=== PATIENT | male | born 1950 | race Hispanic/Latino ===

== ENCOUNTER 2018-06-28 21:06 | Emergency (ER) | payer MEDICARE, OTHER ==
--- OUTSIDE RECORDS SUMMARY | 2018-06-28 21:08 | XMS REPORT ---
Author Author Dilia Nair [facility] eClinicalWorks Address Unknown Phone Unavailable Care Team Providers Care Electrical Intern Name Role Phone Dilia Nair CP Unavailable Allergies, Adverse Reactions, Alerts Substance Reaction Event Type N.K.D.A. Info Not Available Non Drug Allergy Encounters Encounter Location Date headaches [facility] Apr 12, 2015 CT Scan` [facility] Apr 16, 2015 LVM [facility] May 02, 2015 Problems Problem Type Condition ICD-9 Code Onset Dates Condition Status Assessment Hypertension I10 Active Assessment Tobacco non-user Z78.9 Active Assessment Obesity E66.9 Active Problem Obstructive sleep apnea G47.33 Active Problem Subdural hematoma I62.00 Active Problem Headache R51 Active Assessment Headache R51 Active Assessment Subdural hematoma I62.00 Active Problem Obstructive sleep apnea 327.23 Active Assessment Obstructive sleep apnea G47.33 Active Medications Medication Code System Code Instructions Start Date End Date Status Dosage Clopidogrel Bisulfate [facility] [address]-44 75 MG Orally daily Active 1 capsule Sertraline HCl [facility] [address]-60 orally Once a day Mar 26, 2011 Active 1 tablet Lisinopril [facility] [address]-36 10 mg by mouth daily Active 1 tablet Ecotrin [facility] [address]-51 80 mg Orally Once a day Active 1 tablet Nitrostat [facility] [address]-07 0.4 MG Sublingual as needed (prn) Active Unknown Social History Social History Element Qualifiers Date Reported Education history . GED May 02, 2015 Alcohol Screening: . Points: 0, Interpretation: Negative May 02, 2015 Tobacco Use: . Are you a:: former smoker , How long has it been since you last smoked?: > 10 years, Additional Findings: Tobacco Non-User: Ex-light cigarette smoker (1-9/day) May 02, 2015 Marital Status: . May 02, 2015 Do you drink alcohol? . 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
--- OUTSIDE RECORDS SUMMARY | 2018-06-28 21:08 | XMS REPORT ---
Author Author Dilia Nair [facility] eClinicalWorks Address Unknown Phone Unavailable Care Team Providers Care Neuro Ophthalmologist Name Role Phone Dilia Nair CP Unavailable Encounters Encounter Location Date headaches [facility] Apr 12, 2015 CT Scan` [facility] Apr 16, 2015 Problems Problem Type Condition ICD-9 Code Onset Dates Condition Status Problem Obstructive sleep apnea G47.33 Active Problem Subdural hematoma I62.00 Active Problem Headache R51 Active Problem Obstructive sleep apnea 327.23 Active Social History Social History Element Qualifiers Date Reported Education history . GED Apr 12, 2015 Alcohol Screening: . Points: 0, Interpretation: Negative Apr 12, 2015 Tobacco Use: . Are you a:: former smoker , How long has it been since you last smoked?: > 10 years, Additional Findings: Tobacco Non-User: Ex-light cigarette smoker (1-9/day) Apr 12, 2015 Marital Status: . Apr 12, 2015 Do you drink alcohol? . 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
--- OUTSIDE RECORDS SUMMARY | 2018-06-28 21:08 | XMS REPORT ---
Author Author Dilia Nair Organization eClinicalWorks Address Unknown Phone Unavailable Care Team Providers Care Product Handler Name Role Phone Dilia Nair CP Unavailable Allergies, Adverse Reactions, Alerts Substance Reaction Event Type N.K.D.A. Info Not Available Non Drug Allergy Encounters Encounter Location Date headaches [facility] Apr 12, 2015 Problems Problem Type Condition ICD-9 Code Onset Dates Condition Status Assessment Obesity E66.9 Active Assessment Hypertension I10 Active Assessment Tobacco non-user Z78.9 Active Problem Obstructive sleep apnea G47.33 Active Problem Subdural hematoma I62.00 Active Problem Headache R51 Active Assessment Obstructive sleep apnea G47.33 Active Assessment Subdural hematoma I62.00 Active Problem Obstructive sleep apnea 327.23 Active Assessment Headache R51 Active Medications Medication Code System Code Instructions Start Date End Date Status Dosage Lisinopril [facility] [address]-34 10 mg by mouth daily Active 1 tablet Clopidogrel Bisulfate [facility] [address]-65 75 MG Orally daily Active 1 capsule Sertraline HCl [facility] [address]-55 orally Once a day Mar 26, 2011 Active 1 tablet Nitrostat [facility] [address]-05 0.4 MG Sublingual as needed (prn) Active Unknown [facility] [address]-90 80 mg Orally Once a day Active 1 tablet Social History Social History Element Qualifiers Date [...] Socially Apr 12, 2015 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
--- OUTSIDE RECORDS SUMMARY | 2018-06-28 21:10 | XMS REPORT ---
Author [facility] Address Unknown Phone Unavailable Care Team Providers Care Financial Retirement Plan Specialist Name Role Phone WILDA MOSHER Unavailable Unavailable NARESH STEINBERG Unavailable Unavailable Erlin MACIAS Unavailable Unavailable Payers Payer Name Policy Type Policy Number Effective Date Expiration Date Problems This patient has no known problems. Allergies, Adverse Reactions, Alerts Allergy Name Allergy Type Status Severity Reaction(s) Onset Date Inactive Date Treating Clinician Comments No Known Allergies DA Active U 2016-02-08 00:00:00 Medications This patient has no known medications. Results Test Description Test Time Test Comments Text Results Atomic Results Result Comments POCT-GLUCOSE METER 2018-02-22 11:53:00 POC-GLUCOSE METER (BEAKER) (test xcxv=8384) 167 mg/dL 70-110 TESTED AT [address] [address] POCT-GLUCOSE [id number] 05:51:00* Test Item Value Reference Range Comments POC-GLUCOSE METER (BEAKER) (test nfsc=5035) 114 mg/dL 70-110 TESTED AT [address] [address] BASIC METABOLIC [id number] 05:25:00* Test Item Value Reference Range Comments SODIUM (BEAKER) (test skng=863) 136 meq/L 136-145 POTASSIUM (BEAKER) (test gfpn=286) 3.6 meq/L 3.5-5.1 CHLORIDE (BEAKER) (test dbza=336) 100 meq/L 98-107 CO2 (BEAKER) (test elsr=301) 27 meq/L 22-29 BLOOD UREA NITROGEN (BEAKER) (test qaqt=539) 20 mg/dL 7-21 CREATININE (BEAKER) (test mebu=636) 1.04 mg/dL 0.57-1.25 GLUCOSE RANDOM (BEAKER) (test cyke=881) 94 mg/dL 70-105 CALCIUM (BEAKER) (test aitx=579) 9.5 mg/dL 8.4-10.2 EGFR (BEAKER) (test kcvy=0704) 71 mL/min/1.73 sq m ESTIMATED GFR IS NOT ACCURATE CREATININE CLEARANCE IN PREDICTING GLOMERULAR FILTRATION RATE. ESTIMATED GFR IS NOT APPLICABLE FOR DIALYSIS PATIENTS. CBC W/PLT COUNT & AUTO [id number] 05:04:00* Test Item Value Reference Range Comments WHITE BLOOD CELL COUNT (BEAKER) (test exvd=891) 5.4 K/ L 3.5-10.5 RED BLOOD CELL COUNT (BEAKER) (test ysig=135) 3.00 M/ L 4.63-6.08 HEMOGLOBIN (BEAKER) (test jhvu=020) 8.9 GM/DL 13.7-17.5 HEMATOCRIT (BEAKER) (test omfh=534) 27.9 % 40.1-51.0 MEAN CORPUSCULAR VOLUME (BEAKER) (test krvb=969) 93.0 fL 79.0-92.2 MEAN CORPUSCULAR HEMOGLOBIN (BEAKER) (test gmpl=674) 29.7 pg 25.7-32.2 MEAN CORPUSCULAR HEMOGLOBIN CONC (BEAKER) (test cqun=869) 31.9 GM/DL 32.3-36.5 RED CELL DISTRIBUTION WIDTH (BEAKER) (test zxoz=077) 15.6 % 11.6-14.4 PLATELET COUNT (BEAKER) (test rabq=185) 264 K/CU MM 150-450 MEAN PLATELET VOLUME (BEAKER) (test tqmh=464) 9.4 fL 9.4-12.4 NUCLEATED RED BLOOD CELLS (BEAKER) (test ibqo=956) 0 /100 WBC 0-0 NEUTROPHILS RELATIVE PERCENT (BEAKER) (test ccnq=013) 72 % LYMPHOCYTES RELATIVE PERCENT (BEAKER) (test ttlp=298) 17 % MONOCYTES RELATIVE PERCENT (BEAKER) (test luuh=386) 7 % EOSINOPHILS RELATIVE PERCENT (BEAKER) (test yeig=043) 3 % BASOPHILS RELATIVE PERCENT (BEAKER) (test leht=105) 1 % NEUTROPHILS ABSOLUTE COUNT (BEAKER) (test gkjr=527) 3.90 K/ L 1.78-5.38 LYMPHOCYTES ABSOLUTE COUNT (BEAKER) (test fmyt=148) 0.90 K/ L 1.32-3.57 MONOCYTES ABSOLUTE COUNT (BEAKER) (test mruz=175) 0.40 K/ L 0.30-0.82 EOSINOPHILS ABSOLUTE COUNT (BEAKER) (test jrtc=509) 0.18 K/ L 0.04-0.54 BASOPHILS ABSOLUTE COUNT (BEAKER) (test jsiy=203) 0.04 K/ L 0.01-0.08 IMMATURE GRANULOCYTES-RELATIVE PERCENT (BEAKER) (test etjs=1241) 0 % 0-1 POCT-GLUCOSE [id number] 21:00:00* Test Item Value Reference Range Comments POC-GLUCOSE METER (BEAKER) (test xkms=1241) 147 mg/dL 70-110 TESTED AT [address] [address] POCT-GLUCOSE [id number] 16:43:00* Test Item Value Reference Range Comments POC-GLUCOSE METER (BEAKER) (test bzis=4168) 134 mg/dL 70-110 TESTED AT [address] [address] POCT-GLUCOSE [id number] 11:17:00* Test Item Value Reference Range Comments POC-GLUCOSE METER (BEAKER) (test wjsn=0799) 106 mg/dL 70-110 TESTED AT [address] [address] POCT-GLUCOSE [id number] 06:52:00* Test Item Value Reference Range Comments POC-GLUCOSE METER (BEAKER) (test tixn=3198) 113 mg/dL 70-110 TESTED AT [address] [address] POCT-GLUCOSE [id number] 20:47:00* Test Item Value Reference Range Comments POC-GLUCOSE METER (BEAKER) (test avgt=8242) 149 mg/dL 70-110 TESTED AT [address] [address] POCT-GLUCOSE [id number] 16:22:00* Test Item Value Reference Range Comments POC-GLUCOSE METER (BEAKER) (test gifn=3670) 161 mg/dL 70-110 TESTED AT [address] [address] POCT-GLUCOSE [id number] 11:10:00* Test Item Value Reference Range Comments POC-GLUCOSE METER (BEAKER) (test ywpy=3725) 144 mg/dL 70-110 TESTED AT [address] [address] POCT-GLUCOSE [id number] 06:54:00* Test Item Value Reference Range Comments POC-GLUCOSE METER (BEAKER) (test uywx=2531) 125 mg/dL 70-110 TESTED AT [address] [address] POCT-GLUCOSE [id number] 21:06:00* Test Item Value Reference Range Comments POC-GLUCOSE METER (BEAKER) (test quxe=9408) 158 mg/dL 70-110 TESTED AT [address] [address] POCT-GLUCOSE [id number] 17:21:00* Test Item Value Reference Range Comments POC-GLUCOSE METER (BEAKER) (test dndq=9074) 167 mg/dL 70-110 TESTED AT [address] [address] POCT-GLUCOSE [id number] 12:32:00* Test Item Value Reference Range Comments POC-GLUCOSE METER (BEAKER) (test fngn=6591) 106 mg/dL 70-110 TESTED AT [address] [address] COMPREHENSIVE METABOLIC [id number] 06:55:00* Test Item Value Reference Range Comments TOTAL PROTEIN (BEAKER) (test lfve=098) 6.5 gm/dL 6.0-8.3 ALBUMIN (BEAKER) (test zgho=5120) 3.1 g/dL 3.5-5.0 ALKALINE PHOSPHATASE (BEAKER) (test zwrk=134) 130 U/L 40-150 BILIRUBIN TOTAL (BEAKER) (test utmc=330) 0.7 mg/dL 0.2-1.2 SODIUM (BEAKER) (test ovcd=385) 133 meq/L 136-145 POTASSIUM (BEAKER) (test bqyz=098) 3.6 meq/L 3.5-5.1 CHLORIDE (BEAKER) (test hulw=563) 100 meq/L 98-107 CO2 (BEAKER) (test pvfv=461) 24 meq/L 22-29 BLOOD UREA NITROGEN (BEAKER) (test siai=254) 20 mg/dL 7-21 CREATININE (BEAKER) (test zpgt=208) 1.05 mg/dL 0.57-1.25 GLUCOSE RANDOM (BEAKER) (test kisb=472) 109 mg/dL 70-105 CALCIUM (BEAKER) (test jtcd=767) 9.1 mg/dL 8.4-10.2 AST (SGOT) (BEAKER) (test nkxd=972) 24 U/L 5-34 ALT (SGPT) (BEAKER) (test wfzu=094) 35 U/L 6-55 EGFR (BEAKER) (test kreq=8842) 70 mL/min/1.73 sq m ESTIMATED GFR IS NOT ACCURATE CREATININE CLEARANCE IN PREDICTING GLOMERULAR FILTRATION RATE. ESTIMATED GFR IS NOT APPLICABLE FOR DIALYSIS PATIENTS. CBC W/PLT COUNT & AUTO [id number] 06:10:00* Test Item Value Reference Range Comments WHITE BLOOD CELL COUNT (BEAKER) (test srnl=083) 6.8 K/ L 3.5-10.5 RED BLOOD CELL COUNT (BEAKER) (test uuop=793) 3.04 M/ L 4.63-6.08 HEMOGLOBIN (BEAKER) (test emxc=784) 9.3 GM/DL 13.7-17.5 HEMATOCRIT (BEAKER) (test lito=453) 28.5 % 40.1-51.0 MEAN CORPUSCULAR VOLUME (BEAKER) (test zoou=034) 93.8 fL 79.0-92.2 MEAN CORPUSCULAR HEMOGLOBIN (BEAKER) (test ggaw=105) 30.6 pg 25.7-32.2 MEAN CORPUSCULAR HEMOGLOBIN CONC (BEAKER) (test plsm=085) 32.6 GM/DL 32.3-36.5 RED CELL DISTRIBUTION WIDTH (BEAKER) (test nglj=483) 15.5 % 11.6-14.4 PLATELET COUNT (BEAKER) (test jiey=743) 264 K/CU MM 150-450 MEAN PLATELET VOLUME (BEAKER) (test jorf=572) 10.6 fL 9.4-12.4 NUCLEATED RED BLOOD CELLS (BEAKER) (test wneq=636) 0 /100 WBC 0-0 NEUTROPHILS RELATIVE PERCENT (BEAKER) (test wbci=734) 74 % LYMPHOCYTES RELATIVE PERCENT (BEAKER) (test gtsn=320) 14 % MONOCYTES RELATIVE PERCENT (BEAKER) (test zfhv=540) 10 % EOSINOPHILS RELATIVE PERCENT (BEAKER) (test vhay=870) 2 % BASOPHILS RELATIVE PERCENT (BEAKER) (test cnik=843) 1 % NEUTROPHILS ABSOLUTE COUNT (BEAKER) (test kjfs=297) 5.02 K/ L 1.78-5.38 LYMPHOCYTES ABSOLUTE COUNT (BEAKER) (test qmxm=011) 0.92 K/ L 1.32-3.57 MONOCYTES ABSOLUTE COUNT (BEAKER) (test uuxu=135) 0.67 K/ L 0.30-0.82 EOSINOPHILS ABSOLUTE COUNT (BEAKER) (test sggq=452) 0.10 K/ L 0.04-0.54 BASOPHILS ABSOLUTE COUNT (BEAKER) (test htts=510) 0.04 K/ L 0.01-0.08 IMMATURE GRANULOCYTES-RELATIVE PERCENT (BEAKER) (test nhal=6566) 0 % 0-1 POCT-GLUCOSE [id number] 21:55:00* Test Item Value Reference Range Comments POC-GLUCOSE METER (BEAKER) (test zjxg=1319) 165 mg/dL 70-110 TESTED AT [address] [address] POCT-GLUCOSE [id number] 17:10:00* Test Item Value Reference Range Comments POC-GLUCOSE METER (BEAKER) (test zyfq=3100) 198 mg/dL 70-110 TESTED AT [address] [address] POCT-GLUCOSE [id number] 12:38:00* Test Item Value Reference Range Comments POC-GLUCOSE METER (BEAKER) (test cxjx=2915) 134 mg/dL 70-110 TESTED AT [address] [address] POCT-GLUCOSE [id number] 08:18:00* Test Item Value Reference Range Comments POC-GLUCOSE METER (BEAKER) (test blna=2639) 121 mg/dL 70-110 TESTED AT [address] [address] RAD, CHEST, 1 VIEW, NON [id number] 08:16:00Reason for exam:->pulmonary congestionShould this be performed at the bedside?->YesFINAL REPORT INDICATION: pulmonary congestion COMPARISON:February 17. TECHNIQUE: Chest radiograph, single view, portable technique. FINDINGS / IMPRESSION: Suggestion of coronary artery bypass surgery with median sternotomy wires. Heart shadow is enlarged. There is questionable pulmonary venous congestion but no overt pulmonary edema. No pneumothorax or significant pleural effusion is demonstrated. Signed: Shiva Lutz MDReport Verified Date/Time: 02/18/2018 08:16:05 Reading Location: [facility] Radiology Reading Room [id number] 05:50:00* Test Item Value Reference Range Comments MAGNESIUM (BEAKER) (test vydg=080) 1.7 mg/dL 1.6-2.6 BASIC METABOLIC [id number] 05:50:00* Test Item Value Reference Range Comments SODIUM (BEAKER) (test maxf=515) 133 meq/L 136-145 POTASSIUM (BEAKER) (test bclm=546) 3.9 meq/L 3.5-5.1 CHLORIDE (BEAKER) (test vsqz=010) 99 meq/L 98-107 CO2 (BEAKER) (test xcku=528) 24 meq/L 22-29 BLOOD UREA NITROGEN (BEAKER) (test imye=040) 24 mg/dL 7-21 CREATININE (BEAKER) (test cajx=125) 0.96 mg/dL 0.57-1.25 GLUCOSE RANDOM (BEAKER) (test tmvn=766) 107 mg/dL 70-105 CALCIUM (BEAKER) (test onxd=414) 9.2 mg/dL 8.4-10.2 EGFR (BEAKER) (test uzww=5704) 77 mL/min/1.73 sq m ESTIMATED GFR IS NOT ACCURATE CREATININE CLEARANCE IN PREDICTING GLOMERULAR FILTRATION RATE. ESTIMATED GFR IS NOT APPLICABLE FOR DIALYSIS PATIENTS. CBC (HEMOGRAM ONLY)2018-02-18 05:11:00* Test Item Value Reference Range Comments WHITE BLOOD CELL COUNT (BEAKER) (test illt=537) 5.8 K/ L 3.5-10.5 RED BLOOD CELL COUNT (BEAKER) (test uvhp=266) 3.12 M/ L 4.63-6.08 HEMOGLOBIN (BEAKER) (test jjkx=895) 9.2 GM/DL 13.7-17.5 HEMATOCRIT (BEAKER) (test klhx=902) 29.2 % 40.1-51.0 MEAN CORPUSCULAR VOLUME (BEAKER) (test mukv=688) 93.6 fL 79.0-92.2 MEAN CORPUSCULAR HEMOGLOBIN (BEAKER) (test sqya=557) 29.5 pg 25.7-32.2 MEAN CORPUSCULAR HEMOGLOBIN CONC (BEAKER) (test qavw=437) 31.5 GM/DL 32.3-36.5 RED CELL DISTRIBUTION WIDTH (BEAKER) (test wsmd=095) 15.3 % 11.6-14.4 PLATELET COUNT (BEAKER) (test lmpw=206) 259 K/CU MM 150-450 MEAN PLATELET VOLUME (BEAKER) (test dwye=010) 10.2 fL 9.4-12.4 NUCLEATED RED BLOOD CELLS (BEAKER) (test tnqf=004) 0 /100 WBC 0-0 POCT-GLUCOSE [id number] 21:22:00* Test Item Value Reference Range Comments POC-GLUCOSE METER (BEAKER) (test htpv=1264) 147 mg/dL 70-110 TESTED AT [place] [id number] [facility] [address] POCT-GLUCOSE [id number] 18:46:00* Test Item Value Reference Range Comments POC-GLUCOSE METER (BEAKER) (test atfz=0736) 118 mg/dL 70-110 TESTED AT [place] [id number] [facility] [address] POCT-GLUCOSE [id number] 13:30:00* Test Item Value Reference Range Comments POC-GLUCOSE METER (BEAKER) (test aqdw=2349) 130 mg/dL 70-110 TESTED AT [place] [id number] [facility] [address] RAD, CHEST, 1 VIEW, NON [id number] 11:57:00Reason for exam:->pulmonary congestionShould this be performed at the bedside?->YesFINAL REPORT EXAM: Frontal chest radiograph HISTORY PROVIDED: Pulmonary congestion COMPARISON: 02/16/2018 IMPRESSION:Central pulmonary vascular congestion is stable to mildly improved since the previous examination. Bibasilar opacities are similar to the previous examination representing atelectasis or pneumonitis. A trace right pleural effusion remains suspected. No discernible pneumothorax. Cardiomediastinal contours are stable with stable enlargement of the cardiac silhouette. The thoracic aorta is tortuous/ectatic and demonstrates atherosclerotic calcification. Median sternotomy wires are again noted. No acute osseous abnormality. Signed: Nataliya Johns MDReport Verified Date/Time: 02/17/2018 11:57:10 Reading Location: [facility] Reading Room Hussain crissy signed by: NATALIYA JOHNS on 02/17/2018 11:57 AM POCT-GLUCOSE METER 2018-02-17 08:59:00* Test Item Value Reference Range Comments POC-GLUCOSE METER (BEAKER) (test eugn=1379) 116 mg/dL 70-110 TESTED AT [facility] [address] [facility] [address] [id number] 06:16:00* Test Item Value Reference Range Comments MAGNESIUM (BEAKER) (test dele=923) 1.8 mg/dL 1.6-2.6 BASIC METABOLIC [id number] 06:16:00* Test Item Value Reference Range Comments SODIUM (BEAKER) (test ktre=226) 135 meq/L 136-145 POTASSIUM (BEAKER) (test vjuf=067) 3.9 meq/L 3.5-5.1 CHLORIDE (BEAKER) (test crck=209) 100 meq/L 98-107 CO2 (BEAKER) (test vbhm=213) 27 meq/L 22-29 BLOOD UREA NITROGEN (BEAKER) (test gszj=713) 21 mg/dL 7-21 CREATININE (BEAKER) (test pqvp=902) 0.96 mg/dL 0.57-1.25 GLUCOSE RANDOM (BEAKER) (test beup=055) 96 mg/dL 70-105 CALCIUM (BEAKER) (test xbqz=968) 9.5 mg/dL 8.4-10.2 EGFR (BEAKER) (test wqrm=7339) 77 mL/min/1.73 sq m ESTIMATED GFR IS NOT ACCURATE CREATININE CLEARANCE IN PREDICTING GLOMERULAR FILTRATION RATE. ESTIMATED GFR IS NOT APPLICABLE FOR DIALYSIS PATIENTS. CBC (HEMOGRAM ONLY)2018-02-17 05:48:00* Test Item Value Reference Range Comments WHITE BLOOD CELL COUNT (BEAKER) (test awyl=492) 6.4 K/ L 3.5-10.5 RED BLOOD CELL COUNT (BEAKER) (test sjqs=032) 2.88 M/ L 4.63-6.08 HEMOGLOBIN (BEAKER) (test mjea=418) 8.5 GM/DL 13.7-17.5 HEMATOCRIT (BEAKER) (test kzsz=215) 27.0 % 40.1-51.0 MEAN CORPUSCULAR VOLUME (BEAKER) (test mdoh=817) 93.8 fL 79.0-92.2 MEAN CORPUSCULAR HEMOGLOBIN (BEAKER) (test sxow=406) 29.5 pg 25.7-32.2 MEAN CORPUSCULAR HEMOGLOBIN CONC (BEAKER) (test rcht=173) 31.5 GM/DL 32.3-36.5 RED CELL DISTRIBUTION WIDTH (BEAKER) (test nait=615) 15.2 % 11.6-14.4 PLATELET COUNT (BEAKER) (test inls=158) 269 K/CU MM 150-450 MEAN PLATELET VOLUME (BEAKER) (test sdes=960) 10.4 fL 9.4-12.4 NUCLEATED RED BLOOD CELLS (BEAKER) (test upfe=104) 0 /100 WBC 0-0 POCT-GLUCOSE [id number] 21:17:00* Test Item Value Reference Range Comments POC-GLUCOSE METER (BEAKER) (test jhel=3712) 188 mg/dL 70-110 TESTED AT [address] [address] POCT-GLUCOSE [id number] 18:20:00* Test Item Value Reference Range Comments POC-GLUCOSE METER (BEAKER) (test cukw=5092) 126 mg/dL 70-110 TESTED AT [address] [address] FUNGUS CULTURE + [id number] 14:24:00* Test Item Value Reference Range Comments CULTURE (BEAKER) (test cybk=6649) 1+ Meggan glabrata FUNGUS SMEAR (BEAKER) (test dohh=2103) No fungi seen POCT-GLUCOSE [id number] 12:51:00* Test Item Value Reference Range Comments POC-GLUCOSE METER (BEAKER) (test dfxx=6358) 131 mg/dL 70-110 TESTED AT [address] [address] POCT-GLUCOSE [id number] 08:41:00* Test Item Value Reference Range Comments POC-GLUCOSE METER (BEAKER) (test naiy=2016) 123 mg/dL 70-110 TESTED AT [address] [address] POCT-GLUCOSE [id number] 07:13:00* Test Item Value Reference Range Comments POC-GLUCOSE METER (BEAKER) (test nnus=3082) 148 mg/dL 70-110 TESTED AT [facility] [address] [facility] [address] [id number] 06:55:00* Test Item Value Reference Range Comments MAGNESIUM (BEAKER) (test loqp=372) 2.0 mg/dL 1.6-2.6 BASIC METABOLIC [id number] 06:55:00* Test Item Value Reference Range Comments SODIUM (BEAKER) (test qvyk=330) 137 meq/L 136-145 POTASSIUM (BEAKER) (test rhly=720) 3.9 meq/L 3.5-5.1 CHLORIDE (BEAKER) (test imes=394) 101 meq/L 98-107 CO2 (BEAKER) (test aqrw=144) 28 meq/L 22-29 BLOOD UREA NITROGEN (BEAKER) (test xzky=661) 22 mg/dL 7-21 CREATININE (BEAKER) (test wddh=109) 1.03 mg/dL 0.57-1.25 GLUCOSE RANDOM (BEAKER) (test umnl=860) 116 mg/dL 70-105 CALCIUM (BEAKER) (test hxeq=401) 9.5 mg/dL 8.4-10.2 EGFR (BEAKER) (test vneu=2752) 71 mL/min/1.73 sq m ESTIMATED GFR IS NOT ACCURATE CREATININE CLEARANCE IN PREDICTING GLOMERULAR FILTRATION RATE. ESTIMATED GFR IS NOT APPLICABLE FOR DIALYSIS PATIENTS. CBC (HEMOGRAM ONLY)2018-02-16 06:25:00* Test Item Value Reference Range Comments WHITE BLOOD CELL COUNT (BEAKER) (test acmr=969) 6.3 K/ L 3.5-10.5 RED BLOOD CELL COUNT (BEAKER) (test ujxt=487) 3.38 M/ L 4.63-6.08 HEMOGLOBIN (BEAKER) (test eaox=757) 10.0 GM/DL 13.7-17.5 HEMATOCRIT (BEAKER) (test wzri=288) 31.5 % 40.1-51.0 MEAN CORPUSCULAR VOLUME (BEAKER) (test yvhd=132) 93.2 fL 79.0-92.2 MEAN CORPUSCULAR HEMOGLOBIN (BEAKER) (test evxw=683) 29.6 pg 25.7-32.2 MEAN CORPUSCULAR HEMOGLOBIN CONC (BEAKER) (test wpaq=342) 31.7 GM/DL 32.3-36.5 RED CELL DISTRIBUTION WIDTH (BEAKER) (test vwud=523) 15.1 % 11.6-14.4 PLATELET COUNT (BEAKER) (test qzub=939) 280 K/CU MM 150-450 MEAN PLATELET VOLUME (BEAKER) (test siho=727) 10.7 fL 9.4-12.4 NUCLEATED RED BLOOD CELLS (BEAKER) (test bicb=868) 0 /100 WBC 0-0 RAD, CHEST, 1 VIEW, NON [id number] 04:35:00Reason for exam:->pulmonary congestionShould this be performed at the bedside?->YesFINAL REPORT CLINICAL INDICATION: Pulmonary congestion Comparison: 02/15/2018 The cardiomediastinal contours are stable. Central pulmonary vascular prominence and bilateral parenchymal opacities are similar to previous. There is no pneumothorax. Signed: Vince Jimenez Verified Date/Time: 02/16/2018 04:35:34 Reading Location: [address] Reading Room - GLUCOSE [id number] 21:51:00* Test Item Value Reference Range Comments POC-GLUCOSE METER (BEAKER) (test dkns=1547) 156 mg/dL 70-110 TESTED AT [place] [id number] [facility] [address] POCT-GLUCOSE [id number] 13:29:00* Test Item Value Reference Range Comments POC-GLUCOSE METER (BEAKER) (test nclv=9513) 174 mg/dL 70-110 TESTED AT [place] [id number] [facility] [address] POCT-GLUCOSE [id number] 08:59:00* Test Item Value Reference Range Comments POC-GLUCOSE METER (BEAKER) (test nmuo=8345) 113 mg/dL 70-110 TESTED AT [address] [address] [id number] 06:17:00* Test Item Value Reference Range Comments MAGNESIUM (BEAKER) (test reov=571) 1.7 mg/dL 1.6-2.6 BASIC METABOLIC [id number] 06:17:00* Test Item Value Reference Range Comments SODIUM (BEAKER) (test zcwm=841) 134 meq/L 136-145 POTASSIUM (BEAKER) (test mmuu=330) 4.0 meq/L 3.5-5.1 CHLORIDE (BEAKER) (test tjuf=110) 101 meq/L 98-107 CO2 (BEAKER) (test kezs=710) 27 meq/L 22-29 BLOOD UREA NITROGEN (BEAKER) (test icbd=910) 18 mg/dL 7-21 CREATININE (BEAKER) (test jeja=193) 0.86 mg/dL 0.57-1.25 GLUCOSE RANDOM (BEAKER) (test agth=185) 114 mg/dL 70-105 CALCIUM (BEAKER) (test mpyh=064) 9.2 mg/dL 8.4-10.2 EGFR (BEAKER) (test ovsd=2373) 88 mL/min/1.73 sq m ESTIMATED GFR IS NOT ACCURATE CREATININE CLEARANCE IN PREDICTING GLOMERULAR FILTRATION RATE. ESTIMATED GFR IS NOT APPLICABLE FOR DIALYSIS PATIENTS. CBC (HEMOGRAM ONLY)2018-02-15 05:40:00* Test Item Value Reference Range Comments WHITE BLOOD CELL COUNT (BEAKER) (test cmza=649) 6.2 K/ L 3.5-10.5 RED BLOOD CELL COUNT (BEAKER) (test dkqx=367) 3.20 M/ L 4.63-6.08 HEMOGLOBIN (BEAKER) (test gtmw=332) 9.6 GM/DL 13.7-17.5 HEMATOCRIT (BEAKER) (test hxxo=333) 29.6 % 40.1-51.0 MEAN CORPUSCULAR VOLUME (BEAKER) (test yzyd=356) 92.5 fL 79.0-92.2 MEAN CORPUSCULAR HEMOGLOBIN (BEAKER) (test jjgw=204) 30.0 pg 25.7-32.2 MEAN CORPUSCULAR HEMOGLOBIN CONC (BEAKER) (test dubx=728) 32.4 GM/DL 32.3-36.5 RED CELL DISTRIBUTION WIDTH (BEAKER) (test utcs=148) 14.6 % 11.6-14.4 PLATELET COUNT (BEAKER) (test rfjd=311) 236 K/CU MM 150-450 MEAN PLATELET VOLUME (BEAKER) (test rllu=145) 10.5 fL 9.4-12.4 NUCLEATED RED BLOOD CELLS (BEAKER) (test ibmn=833) 0 /100 WBC 0-0 RAD, CHEST, 1 VIEW, NON [id number] 04:01:00Reason for exam:->pulmonary congestionShould this be performed at the bedside?->YesFINAL REPORT RAD, CHEST, 1 VIEW, NON DEPT INDICATION: pulmonary congestion COMPARISON: Prior day's exam FINDINGS: Portable frontal view of the chest. IMPRESSION: Lungs and pleura: Unchanged airspace and pleural opacities. No pneumothorax.Heart and mediastinum: Stable contours. Stable surgical changes.Additional findings: None. Signed: Pascale Paula Verified Date/Time: 02/15/2018 04:01:14 Reading Location: [address] 0 4:01 AM POCT-GLUCOSE [id number] 20:43:00* Test Item Value Reference Range Comments POC-GLUCOSE METER (BEAKER) (test vlth=9315) 170 mg/dL 70-110 TESTED AT [facility] [address] [facility] [address] POCT-GLUCOSE [id number] 14:45:00* Test Item Value Reference Range Comments POC-GLUCOSE METER (BEAKER) (test nvmm=0180) 119 mg/dL 70-110 TESTED AT [facility] [address] [facility] [address] POCT-GLUCOSE [id number] 09:04:00* Test Item Value Reference Range Comments POC-GLUCOSE METER (BEAKER) (test cnzw=0699) 119 mg/dL 70-110 TESTED AT [facility] [address] [place] [address] RAD, CHEST, 1 VIEW, NON [id number] 07:05:00Reason for exam:->pulmonary congestionShould this be performed at the bedside?->YesFINAL REPORT Chest, one view. HISTORY: Pulmonary congestion COMPARISON: Radiograph from 02/13/2018 IMPRESSION: Prior median sternotomy. The increased residual opacities in both lungs are concerning for interstitial edema. Linear opacity left base is likely due to atelectasis. The pleural effusions have decreased in size. Signed: Deandre Davidson MDReport Verified Date/Time: 02/14/2018 07:05:29 Reading Location: [facility] [address] [place] Reading Room [id number] 05:55:00* Test Item Value Reference Range Comments MAGNESIUM (BEAKER) (test eqnl=966) 1.8 mg/dL 1.6-2.6 BASIC METABOLIC [id number] 05:55:00* Test Item Value Reference Range Comments SODIUM (BEAKER) (test bohi=123) 137 meq/L 136-145 POTASSIUM (BEAKER) (test geiz=340) 3.9 meq/L 3.5-5.1 CHLORIDE (BEAKER) (test qsls=526) 102 meq/L 98-107 CO2 (BEAKER) (test bnah=747) 27 meq/L 22-29 BLOOD UREA NITROGEN (BEAKER) (test gwjm=260) 18 mg/dL 7-21 CREATININE (BEAKER) (test xppg=121) 0.83 mg/dL 0.57-1.25 GLUCOSE RANDOM (BEAKER) (test jveg=244) 109 mg/dL 70-105 CALCIUM (BEAKER) (test oyjd=005) 9.3 mg/dL 8.4-10.2 EGFR (BEAKER) (test utab=6033) 92 mL/min/1.73 sq m ESTIMATED GFR IS NOT ACCURATE CREATININE CLEARANCE IN PREDICTING GLOMERULAR FILTRATION RATE. ESTIMATED GFR IS NOT APPLICABLE FOR DIALYSIS PATIENTS. CBC (HEMOGRAM ONLY)2018-02-14 05:25:00* Test Item Value Reference Range Comments WHITE BLOOD CELL COUNT (BEAKER) (test hulc=719) 6.8 K/ L 3.5-10.5 RED BLOOD CELL COUNT (BEAKER) (test vcat=523) 3.27 M/ L 4.63-6.08 HEMOGLOBIN (BEAKER) (test pwad=370) 9.6 GM/DL 13.7-17.5 HEMATOCRIT (BEAKER) (test bqie=541) 30.2 % 40.1-51.0 MEAN CORPUSCULAR VOLUME (BEAKER) (test inbv=041) 92.4 fL 79.0-92.2 MEAN CORPUSCULAR HEMOGLOBIN (BEAKER) (test mezu=949) 29.4 pg 25.7-32.2 MEAN CORPUSCULAR HEMOGLOBIN CONC (BEAKER) (test lwli=697) 31.8 GM/DL 32.3-36.5 RED CELL DISTRIBUTION WIDTH (BEAKER) (test bukg=158) 14.6 % 11.6-14.4 PLATELET COUNT (BEAKER) (test rwwb=018) 215 K/CU MM 150-450 MEAN PLATELET VOLUME (BEAKER) (test wbmf=794) 10.5 fL 9.4-12.4 NUCLEATED RED BLOOD CELLS (BEAKER) (test lxkh=806) 0 /100 WBC 0-0 POCT-GLUCOSE [id number] 20:18:00* Test Item Value Reference Range Comments POC-GLUCOSE METER (BEAKER) (test pjbo=4592) 177 mg/dL 70-110 TESTED AT [address] [address] POCT-GLUCOSE [id number] 17:52:00* Test Item Value Reference Range Comments POC-GLUCOSE METER (BEAKER) (test umxy=1810) 191 mg/dL 70-110 TESTED AT [address] [address] POCT-GLUCOSE [id number] 13:53:00* Test Item Value Reference Range Comments POC-GLUCOSE METER (BEAKER) (test vqkg=4025) 163 mg/dL 70-110 TESTED AT [place] [id number] [facility] [address] RAD, CHEST, 1 VIEW, NON [id number] 09:43:00Reason for exam:->pulmonary congestionShould this be performed at the bedside?->YesFINAL REPORT Comparison: 02/12/2018 TECHNIQUE: Single view of the chest FINDINGS: Bilateral interstitial and airspace opacities are stable. Small pleural effusions are seen. No gross new lung parenchymal changes. Cardiac silhouette is enlarged. Postsurgical changes in the mediastinum noted. Signed: Chris Stein Verified Date/Time: 02/13/2018 09:43:53 Reading Location: [address] Reading Room -GLUCOSE [id number] 08:34:00* Test Item Value Reference Range Comments POC-GLUCOSE METER (BEAKER) (test tgno=9347) 176 mg/dL 70-110 TESTED AT [facility] [address] [facility] [address] [id number] 06:14:00* Test Item Value Reference Range Comments MAGNESIUM (BEAKER) (test kxod=167) 1.9 mg/dL 1.6-2.6 BASIC METABOLIC [id number] 06:14:00* Test Item Value Reference Range Comments SODIUM (BEAKER) (test aonz=384) 137 meq/L 136-145 POTASSIUM (BEAKER) (test wuxk=515) 4.0 meq/L 3.5-5.1 CHLORIDE (BEAKER) (test ybpo=981) 103 meq/L 98-107 CO2 (BEAKER) (test oprx=984) 28 meq/L 22-29 BLOOD UREA NITROGEN (BEAKER) (test hivj=044) 24 mg/dL 7-21 CREATININE (BEAKER) (test pnbh=316) 0.92 mg/dL 0.57-1.25 GLUCOSE RANDOM (BEAKER) (test ikac=785) 117 mg/dL 70-105 CALCIUM (BEAKER) (test woqt=439) 8.9 mg/dL 8.4-10.2 EGFR (BEAKER) (test piht=8572) 81 mL/min/1.73 sq m ESTIMATED GFR IS NOT ACCURATE CREATININE CLEARANCE IN PREDICTING GLOMERULAR FILTRATION RATE. ESTIMATED GFR IS NOT APPLICABLE FOR DIALYSIS PATIENTS. CBC (HEMOGRAM ONLY)2018-02-13 05:29:00* Test Item Value Reference Range Comments WHITE BLOOD CELL COUNT (BEAKER) (test yhly=379) 5.9 K/ L 3.5-10.5 RED BLOOD CELL COUNT (BEAKER) (test kmrk=743) 3.31 M/ L 4.63-6.08 HEMOGLOBIN (BEAKER) (test osrx=605) 9.8 GM/DL 13.7-17.5 HEMATOCRIT (BEAKER) (test kjgx=302) 30.5 % 40.1-51.0 MEAN CORPUSCULAR VOLUME (BEAKER) (test pjap=893) 92.1 fL 79.0-92.2 MEAN CORPUSCULAR HEMOGLOBIN (BEAKER) (test ywgi=926) 29.6 pg 25.7-32.2 MEAN CORPUSCULAR HEMOGLOBIN CONC (BEAKER) (test yjop=266) 32.1 GM/DL 32.3-36.5 RED CELL DISTRIBUTION WIDTH (BEAKER) (test gosl=863) 14.7 % 11.6-14.4 PLATELET COUNT (BEAKER) (test paid=608) 228 K/CU MM 150-450 MEAN PLATELET VOLUME (BEAKER) (test nyxr=549) 10.6 fL 9.4-12.4 NUCLEATED RED BLOOD CELLS (BEAKER) (test hoff=493) 0 /100 WBC 0-0 POCT-GLUCOSE [id number] 22:52:00* Test Item Value Reference Range Comments POC-GLUCOSE METER (BEAKER) (test gpqp=5409) 149 mg/dL 70-110 TESTED AT [address] [address] POCT-GLUCOSE [id number] 18:11:00* Test Item Value Reference Range Comments POC-GLUCOSE METER (BEAKER) (test qnpf=7116) 179 mg/dL 70-110 TESTED AT [address] [address] POCT-GLUCOSE [id number] 13:16:00* Test Item Value Reference Range Comments POC-GLUCOSE METER (BEAKER) (test sbvu=9056) 161 mg/dL 70-110 TESTED AT [address] [address] POCT-GLUCOSE [id number] 08:50:00* Test Item Value Reference Range Comments POC-GLUCOSE METER (BEAKER) (test jvvw=0392) 154 mg/dL 70-110 TESTED AT [address] [address] [id number] 07:41:00* Test Item Value Reference Range Comments MAGNESIUM (BEAKER) (test udvx=521) 1.8 mg/dL 1.6-2.6 BASIC METABOLIC [id number] 07:41:00* Test Item Value Reference Range Comments SODIUM (BEAKER) (test gjnb=088) 138 meq/L 136-145 POTASSIUM (BEAKER) (test mynm=031) 3.8 meq/L 3.5-5.1 CHLORIDE (BEAKER) (test xyfj=460) 105 meq/L 98-107 CO2 (BEAKER) (test bywd=401) 26 meq/L 22-29 BLOOD UREA NITROGEN (BEAKER) (test yuum=906) 24 mg/dL 7-21 CREATININE (BEAKER) (test kxwe=340) 0.84 mg/dL 0.57-1.25 GLUCOSE RANDOM (BEAKER) (test fflz=320) 119 mg/dL 70-105 CALCIUM (BEAKER) (test viym=988) 8.5 mg/dL 8.4-10.2 EGFR (BEAKER) (test kxne=7115) 90 mL/min/1.73 sq m ESTIMATED GFR IS NOT ACCURATE CREATININE CLEARANCE IN PREDICTING GLOMERULAR FILTRATION RATE. ESTIMATED GFR IS NOT APPLICABLE FOR DIALYSIS PATIENTS. CBC (HEMOGRAM ONLY)2018-02-12 07:03:00* Test Item Value Reference Range Comments WHITE BLOOD CELL COUNT (BEAKER) (test kcfs=348) 6.0 K/ L 3.5-10.5 RED BLOOD CELL COUNT (BEAKER) (test trfz=630) 2.84 M/ L 4.63-6.08 HEMOGLOBIN (BEAKER) (test yiiy=246) 8.6 GM/DL 13.7-17.5 HEMATOCRIT (BEAKER) (test znmx=542) 26.9 % 40.1-51.0 MEAN CORPUSCULAR VOLUME (BEAKER) (test jdck=521) 94.7 fL 79.0-92.2 MEAN CORPUSCULAR HEMOGLOBIN (BEAKER) (test onjr=729) 30.3 pg 25.7-32.2 MEAN CORPUSCULAR HEMOGLOBIN CONC (BEAKER) (test afkm=088) 32.0 GM/DL 32.3-36.5 RED CELL DISTRIBUTION WIDTH (BEAKER) (test nqns=596) 14.7 % 11.6-14.4 PLATELET COUNT (BEAKER) (test dusv=720) 168 K/CU MM 150-450 MEAN PLATELET VOLUME (BEAKER) (test wwyd=532) 11.3 fL 9.4-12.4 NUCLEATED RED BLOOD CELLS (BEAKER) (test jifk=014) 0 /100 WBC 0-0 RAD, CHEST, 1 VIEW, NON [id number] 04:54:00Reason for exam:->pulmonary congestionShould this be performed at the bedside?->YesFINAL REPORT RAD, CHEST, 1 VIEW, NON DEPT INDICATION: pulmonary congestion COMPARISON: Prior day's exam FINDINGS: Portable frontal view of the chest. IMPRESSION: Lungs and pleura: Unchanged airspace and pleural opacities. No pneumothorax.Heart and mediastinum: Stable contours. Stable surgical changes.Additional findings: None. Signed: Pascale Paula Verified Date/Time: 02/12/2018 04:54:13 Reading Location: [address] Room 0 4:54 AM POCT-GLUCOSE [id number] 20:58:00* Test Item Value Reference Range Comments POC-GLUCOSE METER (BEAKER) (test jqjw=5900) 205 mg/dL 70-110 TESTED AT [address] [address] RAD, ANKLE, 2 VIEWS, [id number] 20:19:00Reason for exam:->severe pain with weight bearingFINAL REPORT CLINICAL HISTORY: Pain and tenderness COMPARISON: None. FINDINGS: 2 views of the right ankle and 2 views of the right foot are submitted. There is soft tissue prominence about the ankle and foot without underlying fracture, malalignment, destructive bony lesion or radiopaque foreign body. Signed: Vince Jimenez Verified Date/Time: 02/11/2018 20:19:54 Reading Location: [address] Reading Room , FOOT, 2 VIEWS, [id number] 20:19:00Reason for exam:->pain,tendernessFINAL REPORT CLINICAL HISTORY: Pain and tenderness COMPARISON: None. FINDINGS: 2 views of the right ankle and 2 views of the right foot are submitted. There is soft tissue prominence about the ankle and foot without underlying fracture, malalignment, destructive bony lesion or radiopaque foreign body. Signed: Vince Jimenez Verified Date/Time: 02/11/2018 20:19:54 R eading Location: [address] Reading Room -GLUCOSE [id number] 17:51:00* Test Item Value Reference Range Comments POC-GLUCOSE METER (BEAKER) (test hagu=3453) 156 mg/dL 70-110 TESTED AT [facility] [address] [facility] [address] POCT-GLUCOSE [id number] 13:17:00* Test Item Value Reference Range Comments POC-GLUCOSE METER (BEAKER) (test nuxq=8398) 149 mg/dL 70-110 TESTED AT [place] [id number] [facility] [address] POCT-GLUCOSE [id number] 08:31:00* Test Item Value Reference Range Comments POC-GLUCOSE METER (BEAKER) (test klqp=7583) 133 mg/dL 70-110 TESTED AT [place] [id number] [facility] [address] RAD, CHEST, 1 VIEW, NON [id number] 07:32:00Reason for exam:->pulmonary congestionShould this be performed at the bedside?->YesFINAL REPORT Chest one view. Clinical history: pulmonary congestion Comparison: 02/10/2018 Discussion: A frontal chest is provided. Cardiomediastinal contours are unchanged. Unchanged retrocardiac opacity. No pneumothorax, or significant effusion. Mild interstitial prominence may reflect edema. Right lower chest wall subcutaneous emphysema has improved. Signed: Karina Byrd Verified Date/Time: 02/11/2018 07:32:54 Reading Location: [facility] Radiology Reading Room Electronically signed by: KARINA BYRD M.D. on 1 04/14/2017 07:32 AM [id number] 06:11:00* Test Item Value Reference Range Comments MAGNESIUM (BEAKER) (test xryp=225) 1.9 mg/dL 1.6-2.6 BASIC METABOLIC [id number] 06:11:00* Test Item Value Reference Range Comments SODIUM (BEAKER) (test agav=084) 140 meq/L 136-145 POTASSIUM (BEAKER) (test qohx=498) 3.7 meq/L 3.5-5.1 CHLORIDE (BEAKER) (test ulrp=724) 106 meq/L 98-107 CO2 (BEAKER) (test nxgu=042) 31 meq/L 22-29 BLOOD UREA NITROGEN (BEAKER) (test zgzy=711) 23 mg/dL 7-21 CREATININE (BEAKER) (test rxnn=683) 0.87 mg/dL 0.57-1.25 GLUCOSE RANDOM (BEAKER) (test qqmv=497) 121 mg/dL 70-105 CALCIUM (BEAKER) (test azgq=265) 8.6 mg/dL 8.4-10.2 EGFR (BEAKER) (test rzkj=6037) 87 mL/min/1.73 sq m ESTIMATED GFR IS NOT ACCURATE CREATININE CLEARANCE IN PREDICTING GLOMERULAR FILTRATION RATE. ESTIMATED GFR IS NOT APPLICABLE FOR DIALYSIS PATIENTS. CBC (HEMOGRAM ONLY)2018-02-11 05:44:00* Test Item Value Reference Range Comments WHITE BLOOD CELL COUNT (BEAKER) (test mlfv=414) 8.0 K/ L 3.5-10.5 RED BLOOD CELL COUNT (BEAKER) (test mlkf=881) 3.00 M/ L 4.63-6.08 HEMOGLOBIN (BEAKER) (test crvm=392) 8.9 GM/DL 13.7-17.5 HEMATOCRIT (BEAKER) (test hrxo=343) 27.9 % 40.1-51.0 MEAN CORPUSCULAR VOLUME (BEAKER) (test jwkx=835) 93.0 fL 79.0-92.2 MEAN CORPUSCULAR HEMOGLOBIN (BEAKER) (test jgjp=165) 29.7 pg 25.7-32.2 MEAN CORPUSCULAR HEMOGLOBIN CONC (BEAKER) (test xugo=274) 31.9 GM/DL 32.3-36.5 RED CELL DISTRIBUTION WIDTH (BEAKER) (test cazb=591) 14.8 % 11.6-14.4 PLATELET COUNT (BEAKER) (test aoqb=011) 170 K/CU MM 150-450 MEAN PLATELET VOLUME (BEAKER) (test aqon=699) 10.2 fL 9.4-12.4 NUCLEATED RED BLOOD CELLS (BEAKER) (test fmvn=758) 0 /100 WBC 0-0 POCT-GLUCOSE [id number] 19:50:00* Test Item Value Reference Range Comments POC-GLUCOSE METER (BEAKER) (test rrhq=4195) 257 mg/dL 70-110 TESTED AT [facility] [address] [facility] [address] POCT-GLUCOSE [id number] 17:41:00* Test Item Value Reference Range Comments POC-GLUCOSE METER (BEAKER) (test hnle=5766) 193 mg/dL 70-110 TESTED AT [facility] [address] [facility] [address] POCT-GLUCOSE [id number] 12:58:00* Test Item Value Reference Range Comments POC-GLUCOSE METER (BEAKER) (test jtry=3181) 199 mg/dL 70-110 TESTED AT [address] [address] RAD, CHEST, 1 VIEW, NON [id number] 08:30:00Reason for exam:->pulmonary congestionShould this be performed at the bedside?->YesFINAL REPORT HISTORY : pulmonary congestion. Comparison: 02/09/2018 Comment: Single portable view of the chest was obtained. The cardiac silhouette size is enlarged. There are findings of pulmonary venous congestion. Interstitial prominence may represent interstitial edema. Pneumonitis cannot be excluded. There is a tortuous/ectatic thoracic aorta. The patient is status post sternotomy. Some air is seen in the right lower chest/upper abdominal wall soft tissues. There is some left basilar consolidation. There may be a small left-si ded pleural effusion. Signed: Laverne Keys Verified Date/Time: 018 08:30:07 Reading Location: [facility] Radiology [facility] signed by: LAVERNE KEYS M.D. on 02/10/2018 08:30 AM POCT-GLUCOSE METER 2018-02-10 08:07:00* Test Item Value Reference Range Comments POC-GLUCOSE METER (BEAKER) (test bbqn=7900) 133 mg/dL 70-110 TESTED AT [facility] [address] [facility] [address] BLOOD GAS, [id number] 05:18:00* Test Item Value Reference Range Comments PH ARTERIAL (BEAKER) (test qngi=638) 7.51 7.35-7.45 PCO2 ARTERIAL (BEAKER) (test hwhi=314) 36 mmHg 35-45 PO2 ARTERIAL (BEAKER) (test endj=842) 180 mmHg 80-90 O2 SATURATION ARTERIAL (BEAKER) (test naii=186) 99.4 % 96.0-97.0 HCO3 ARTERIAL (BEAKER) (test jkjf=547) 28 mmol/L 21-29 BASE EXCESS ARTERIAL (BEAKER) (test okwz=800) 4.7 mmol/L -2.0-3.0 PATIENT TEMPERATURE (BEAKER) (test oroh=6443) 36.5 C FIO2 (BEAKER) (test alpt=7362) 40.0 % [id number] 05:03:00* Test Item Value Reference Range Comments MAGNESIUM (BEAKER) (test xwxi=032) 2.0 mg/dL 1.6-2.6 Specimen slightly hemolyzed BASIC METABOLIC [id number] 05:03:00* Test Item Value Reference Range Comments SODIUM (BEAKER) (test fyof=576) 143 meq/L 136-145 POTASSIUM (BEAKER) (test ugic=910) 4.2 meq/L 3.5-5.1 Specimen slightly hemolyzed CHLORIDE (BEAKER) (test ocqf=465) 111 meq/L 98-107 CO2 (BEAKER) (test ossw=703) 26 meq/L 22-29 BLOOD UREA NITROGEN (BEAKER) (test igum=463) 25 mg/dL 7-21 CREATININE (BEAKER) (test avkz=532) 0.78 mg/dL 0.57-1.25 Specimen slightly hemolyzed GLUCOSE RANDOM (BEAKER) (test rchz=252) 130 mg/dL 70-105 CALCIUM (BEAKER) (test ewzl=183) 8.4 mg/dL 8.4-10.2 EGFR (BEAKER) (test gdjg=9242) 98 mL/min/1.73 sq m ESTIMATED GFR IS NOT ACCURATE CREATININE CLEARANCE IN PREDICTING GLOMERULAR FILTRATION RATE. ESTIMATED GFR IS NOT APPLICABLE FOR DIALYSIS PATIENTS. CBC W/PLT COUNT & AUTO [id number] 04:56:00* Test Item Value Reference Range Comments WHITE BLOOD CELL COUNT (BEAKER) (test vain=397) 7.6 K/ L 3.5-10.5 RED BLOOD CELL COUNT (BEAKER) (test wygm=674) 3.10 M/ L 4.63-6.08 HEMOGLOBIN (BEAKER) (test dlwf=998) 9.3 GM/DL 13.7-17.5 HEMATOCRIT (BEAKER) (test dhww=674) 28.7 % 40.1-51.0 MEAN CORPUSCULAR VOLUME (BEAKER) (test vall=160) 92.6 fL 79.0-92.2 MEAN CORPUSCULAR HEMOGLOBIN (BEAKER) (test fupq=077) 30.0 pg 25.7-32.2 MEAN CORPUSCULAR HEMOGLOBIN CONC (BEAKER) (test cjza=400) 32.4 GM/DL 32.3-36.5 RED CELL DISTRIBUTION WIDTH (BEAKER) (test cbou=755) 14.8 % 11.6-14.4 PLATELET COUNT (BEAKER) (test xyfl=530) 156 K/CU MM 150-450 MEAN PLATELET VOLUME (BEAKER) (test wvsy=567) 10.3 fL 9.4-12.4 NUCLEATED RED BLOOD CELLS (BEAKER) (test sabx=907) 0 /100 WBC 0-0 NEUTROPHILS RELATIVE PERCENT (BEAKER) (test kafj=962) 82 % LYMPHOCYTES RELATIVE PERCENT (BEAKER) (test godl=508) 9 % MONOCYTES RELATIVE PERCENT (BEAKER) (test eilv=859) 7 % EOSINOPHILS RELATIVE PERCENT (BEAKER) (test isjb=145) 0 % BASOPHILS RELATIVE PERCENT (BEAKER) (test ixsg=994) 0 % NEUTROPHILS ABSOLUTE COUNT (BEAKER) (test owxc=525) 6.27 K/ L 1.78-5.38 LYMPHOCYTES ABSOLUTE COUNT (BEAKER) (test nxah=648) 0.70 K/ L 1.32-3.57 MONOCYTES ABSOLUTE COUNT (BEAKER) (test mazq=558) 0.54 K/ L 0.30-0.82 EOSINOPHILS ABSOLUTE COUNT (BEAKER) (test jshh=998) 0.03 K/ L 0.04-0.54 BASOPHILS ABSOLUTE COUNT (BEAKER) (test luho=310) 0.01 K/ L 0.01-0.08 IMMATURE GRANULOCYTES-RELATIVE PERCENT (BEAKER) (test tuih=0983) 1 % 0-1 [id number] 01:12:00* Test Item Value Reference Range Comments POTASSIUM (BEAKER) (test yqii=262) 3.9 meq/L 3.5-5.1 Check Serum Magnesium level 2 hours after IV magnesium replacement.Every 8 hours PRN for Creatinine greater than or equal to 2 mg/dL.[id number] 01:12:00 * Test Item Value Reference Range Comments MAGNESIUM (BEAKER) (test hagw=127) 1.8 mg/dL 1.6-2.6 Check Serum Magnesium level 2 hours after IV magnesium replacement.Every 8 hours PRN for Creatinine greater than or equal to 2 mg/dL.POCT-GLUCOSE [id number] 22:00:00* Test Item Value Reference Range Comments POC-GLUCOSE METER (BEAKER) (test whzq=4547) 143 mg/dL 70-110 TESTED AT [facility] [address] [facility] [address] POCT-GLUCOSE [id number] 17:54:00* Test Item Value Reference Range Comments POC-GLUCOSE METER (BEAKER) (test idzy=8529) 181 mg/dL 70-110 TESTED AT [address] [address] BLOOD [id number] 17:01:00* Test Item Value Reference Range Comments CULTURE (BEAKER) (test wuvz=7866) No growth in 5 days BLOOD [id number] 17:01:00* Test Item Value Reference Range Comments CULTURE (BEAKER) (test fzbm=8614) No growth in 5 days [id number] 16:28:00* Test Item Value Reference Range Comments POTASSIUM (BEAKER) (test aqpz=343) 3.6 meq/L 3.5-5.1 Check Serum Potassium level 2 hours after oral potassium replacement completed o r 30 min after intravenous potassium replacement.POCT-GLUCOSE [id number] 11:57:00* Test Item Value Reference Range Comments POC-GLUCOSE METER (BEAKER) (test rzkd=0273) 158 mg/dL 70-110 TESTED AT [place] [id number] [facility] [address] POCT-GLUCOSE [id number] 07:50:00* Test Item Value Reference Range Comments POC-GLUCOSE METER (BEAKER) (test pwet=2629) 148 mg/dL 70-110 TESTED AT [address] [address] RAD, CHEST, 1 VIEW, NON [id number] 07:20:00Reason for exam:->pulmonary congestionShould this be performed at the bedside?->YesFINAL REPORT Chest one view. Clinical history: pulmonary congestion Comparison: 02/08/2018 Discussion: A frontal chest is provided. Cardiomediastinal contours are unchanged. Improved retrocardiac opacity. There are small bilateral pleural effusions. No pneumothorax. Signed: Karina Byrd MDReport Verified Date/Time: 02/09/2018 07:20:18 Reading Location: [facility] Radiology Reading Room [id number] 05:25:00* Test Item Value Reference Range Comments MAGNESIUM (BEAKER) (test gmav=729) 2.0 mg/dL 1.6-2.6 BASIC METABOLIC [id number] 05:25:00* Test Item Value Reference Range Comments SODIUM (BEAKER) (test gplr=903) 144 meq/L 136-145 POTASSIUM (BEAKER) (test yolo=296) 3.7 meq/L 3.5-5.1 CHLORIDE (BEAKER) (test esyk=548) 110 meq/L 98-107 CO2 (BEAKER) (test tkyf=659) 27 meq/L 22-29 BLOOD UREA NITROGEN (BEAKER) (test zaph=177) 29 mg/dL 7-21 CREATININE (BEAKER) (test aprx=251) 0.81 mg/dL 0.57-1.25 GLUCOSE RANDOM (BEAKER) (test vblh=495) 136 mg/dL 70-105 CALCIUM (BEAKER) (test zoyo=404) 8.5 mg/dL 8.4-10.2 EGFR (BEAKER) (test iwpa=4557) 94 mL/min/1.73 sq m ESTIMATED GFR IS NOT ACCURATE CREATININE CLEARANCE IN PREDICTING GLOMERULAR FILTRATION RATE. ESTIMATED GFR IS NOT APPLICABLE FOR DIALYSIS PATIENTS. CBC W/PLT COUNT & AUTO [id number] 04:52:00* Test Item Value Reference Range Comments WHITE BLOOD CELL COUNT (BEAKER) (test gczz=202) 7.0 K/ L 3.5-10.5 RED BLOOD CELL COUNT (BEAKER) (test hfgb=095) 3.19 M/ L 4.63-6.08 HEMOGLOBIN (BEAKER) (test lpqi=178) 9.5 GM/DL 13.7-17.5 HEMATOCRIT (BEAKER) (test skbo=024) 29.1 % 40.1-51.0 MEAN CORPUSCULAR VOLUME (BEAKER) (test fwoh=640) 91.2 fL 79.0-92.2 MEAN CORPUSCULAR HEMOGLOBIN (BEAKER) (test oist=471) 29.8 pg 25.7-32.2 MEAN CORPUSCULAR HEMOGLOBIN CONC (BEAKER) (test qzxq=788) 32.6 GM/DL 32.3-36.5 RED CELL DISTRIBUTION WIDTH (BEAKER) (test xmyz=202) 14.5 % 11.6-14.4 PLATELET COUNT (BEAKER) (test feko=383) 159 K/CU MM 150-450 MEAN PLATELET VOLUME (BEAKER) (test flwz=029) 10.6 fL 9.4-12.4 NUCLEATED RED BLOOD CELLS (BEAKER) (test ixfv=501) 0 /100 WBC 0-0 NEUTROPHILS RELATIVE PERCENT (BEAKER) (test qsqf=501) 78 % LYMPHOCYTES RELATIVE PERCENT (BEAKER) (test qhny=430) 10 % MONOCYTES RELATIVE PERCENT (BEAKER) (test liin=537) 10 % EOSINOPHILS RELATIVE PERCENT (BEAKER) (test wwhk=717) 1 % BASOPHILS RELATIVE PERCENT (BEAKER) (test fzxb=818) 0 % NEUTROPHILS ABSOLUTE COUNT (BEAKER) (test aayp=977) 5.46 K/ L 1.78-5.38 LYMPHOCYTES ABSOLUTE COUNT (BEAKER) (test ryex=240) 0.68 K/ L 1.32-3.57 MONOCYTES ABSOLUTE COUNT (BEAKER) (test dizy=767) 0.66 K/ L 0.30-0.82 EOSINOPHILS ABSOLUTE COUNT (BEAKER) (test rbpg=804) 0.08 K/ L 0.04-0.54 BASOPHILS ABSOLUTE COUNT (BEAKER) (test jmot=077) 0.01 K/ L 0.01-0.08 IMMATURE GRANULOCYTES-RELATIVE PERCENT (BEAKER) (test kejo=3798) 1 % 0-1 BLOOD GAS, [id number] 04:52:00* Test Item Value Reference Range Comments PH ARTERIAL (BEAKER) (test gumx=364) 7.52 7.35-7.45 PCO2 ARTERIAL (BEAKER) (test pwam=091) 36 mmHg 35-45 PO2 ARTERIAL (BEAKER) (test vcph=164) 90 mmHg 80-90 O2 SATURATION ARTERIAL (BEAKER) (test iogp=172) 97.6 % 96.0-97.0 HCO3 ARTERIAL (BEAKER) (test klip=538) 29 mmol/L 21-29 BASE EXCESS ARTERIAL (BEAKER) (test qmtn=903) 5.5 mmol/L -2.0-3.0 PATIENT TEMPERATURE (BEAKER) (test flrs=1375) 37.0 C FIO2 (BEAKER) (test tako=9239) 45.0 % POCT-GLUCOSE [id number] 23:52:00* Test Item Value Reference Range Comments POC-GLUCOSE METER (BEAKER) (test ivxq=6100) 134 mg/dL 70-110 TESTED AT [facility] [address] [facility] [address] POCT-GLUCOSE [id number] 21:41:00* Test Item Value Reference Range Comments POC-GLUCOSE METER (BEAKER) (test kkus=7925) 214 mg/dL 70-110 TESTED AT [address] [address] [id number] 17:23:00* Test Item Value Reference Range Comments MAGNESIUM (BEAKER) (test xngw=700) 2.0 mg/dL 1.6-2.6 Check Serum Magnesium level 2 hours after IV magnesium replacement.BRONCHIAL CULTURE + GRAM [id number] 15:16:00* Test Item Value Reference Range Comments CULTURE (BEAKER) (test bbpp=1983) 2+ Normal respiratory ban present GRAM STAIN RESULT (BEAKER) (test xlcs=5359) 1+ WBCs GRAM STAIN RESULT (BEAKER) (test gsxs=17582) <1+ gram negative rods BASIC METABOLIC [id number] 14:41:00* Test Item Value Reference Range Comments SODIUM (BEAKER) (test gxpl=438) 140 meq/L 136-145 POTASSIUM (BEAKER) (test dlni=125) 3.4 meq/L 3.5-5.1 CHLORIDE (BEAKER) (test xnaw=741) 108 meq/L 98-107 CO2 (BEAKER) (test tcbd=383) 23 meq/L 22-29 BLOOD UREA NITROGEN (BEAKER) (test tehk=095) 29 mg/dL 7-21 CREATININE (BEAKER) (test ppqu=492) 0.85 mg/dL 0.57-1.25 GLUCOSE RANDOM (BEAKER) (test qcin=629) 138 mg/dL 70-105 CALCIUM (BEAKER) (test aooz=468) 8.6 mg/dL 8.4-10.2 EGFR (BEAKER) (test txcn=9612) 89 mL/min/1.73 sq m ESTIMATED GFR IS NOT ACCURATE CREATININE CLEARANCE IN PREDICTING GLOMERULAR FILTRATION RATE. ESTIMATED GFR IS NOT APPLICABLE FOR DIALYSIS PATIENTS. Please draw AFTER dialysisRAD, CHEST, 1 VIEW, NON [id number] 13:39:00Reason for exam:->pulmonary congestionShould this be performed at the bedside?->Yes FINAL REPORT AP chest HISTORY: Pulmonary congestion. COMP ARISON: 02/07/2018. IMPRESSION: Cardiomegaly. Left basilar airspace disease. Inte rstitial prominence improved. Small effusions. No appreciable pneumothorax. Sign ed: Nuris Lorenzana MDReport Verified Date/Time: 02/08/2018 13:39:33 Reading Lo cation: [facility] Mammo Reading Room UM CULTURE + GRAM [id number] 13:25:00* Test Item Value Reference Range Comments CULTURE (BEAKER) (test colu=4138) STAPHYLOCOCCUS AUREUS <1+ Staphylococcus aureus Clindamycin (test code=10) Erythromycin (test code=4) Linezolid (test code=40) Nitrofurantoin (test code=23) Oxacillin (test code=14) Rifampin (test code=43) Tetracycline (test code=2) Trimethoprim + Sulfamethoxazole (test code=47) Vancomycin (test code=13) GRAM STAIN RESULT (BEAKER) (test ulwa=9221) 2+ White blood cells seen GRAM STAIN RESULT (BEAKER) (test giet=908883) 5-10 epithelial cells GRAM STAIN RESULT (BEAKER) (test yemx=065174) 3+ gram negative rods 2+ Normal respiratory ban presentPOCT-GLUCOSE [id number] 12:27:00* Test Item Value Reference Range Comments POC-GLUCOSE METER (BEAKER) (test kqjx=9275) 155 mg/dL 70-110 TESTED AT [facility] [address] [address] POCT-GLUCOSE [id number] 06:30:00* Test Item Value Reference Range Comments POC-GLUCOSE METER (BEAKER) (test tttq=3066) 177 mg/dL 70-110 TESTED AT [facility] [address] [facility] [address] BLOOD GAS, [id number] 05:07:00* Test Item Value Reference Range Comments PH ARTERIAL (BEAKER) (test cttp=593) 7.51 7.35-7.45 PCO2 ARTERIAL (BEAKER) (test yvxk=944) 34 mmHg 35-45 PO2 ARTERIAL (BEAKER) (test hyjo=668) 84 mmHg 80-90 O2 SATURATION ARTERIAL (BEAKER) (test sxhp=289) 97.1 % 96.0-97.0 HCO3 ARTERIAL (BEAKER) (test qtmn=406) 27 mmol/L 21-29 BASE EXCESS ARTERIAL (BEAKER) (test kulz=302) 3.6 mmol/L -2.0-3.0 PATIENT TEMPERATURE (BEAKER) (test bkyy=3599) 37.0 C FIO2 (BEAKER) (test zjcf=0752) 100.0 % [id number] 04:46:00* Test Item Value Reference Range Comments MAGNESIUM (BEAKER) (test ydfq=676) 2.1 mg/dL 1.6-2.6 BASIC METABOLIC [id number] 04:46:00* Test Item Value Reference Range Comments SODIUM (BEAKER) (test bklh=165) 143 meq/L 136-145 POTASSIUM (BEAKER) (test vobi=237) 3.6 meq/L 3.5-5.1 CHLORIDE (BEAKER) (test pbia=650) 112 meq/L 98-107 CO2 (BEAKER) (test cnte=601) 22 meq/L 22-29 BLOOD UREA NITROGEN (BEAKER) (test xcse=446) 29 mg/dL 7-21 CREATININE (BEAKER) (test dqen=112) 0.82 mg/dL 0.57-1.25 GLUCOSE RANDOM (BEAKER) (test lkmu=581) 133 mg/dL 70-105 CALCIUM (BEAKER) (test ydsz=282) 8.4 mg/dL 8.4-10.2 EGFR (BEAKER) (test nnwz=2902) 93 mL/min/1.73 sq m ESTIMATED GFR IS NOT ACCURATE CREATININE CLEARANCE IN PREDICTING GLOMERULAR FILTRATION RATE. ESTIMATED GFR IS NOT APPLICABLE FOR DIALYSIS PATIENTS. CBC W/PLT COUNT & AUTO [id number] 04:27:00* Test Item Value Reference Range Comments WHITE BLOOD CELL COUNT (BEAKER) (test ctui=231) 9.0 K/ L 3.5-10.5 RED BLOOD CELL COUNT (BEAKER) (test swqs=558) 3.22 M/ L 4.63-6.08 HEMOGLOBIN (BEAKER) (test mzwm=779) 9.5 GM/DL 13.7-17.5 HEMATOCRIT (BEAKER) (test tbqt=803) 29.8 % 40.1-51.0 MEAN CORPUSCULAR VOLUME (BEAKER) (test piwu=439) 92.5 fL 79.0-92.2 MEAN CORPUSCULAR HEMOGLOBIN (BEAKER) (test ahhh=865) 29.5 pg 25.7-32.2 MEAN CORPUSCULAR HEMOGLOBIN CONC (BEAKER) (test zcwh=972) 31.9 GM/DL 32.3-36.5 RED CELL DISTRIBUTION WIDTH (BEAKER) (test zyjf=259) 14.6 % 11.6-14.4 PLATELET COUNT (BEAKER) (test gdon=153) 137 K/CU MM 150-450 MEAN PLATELET VOLUME (BEAKER) (test avjn=334) 10.5 fL 9.4-12.4 NUCLEATED RED BLOOD CELLS (BEAKER) (test vkdg=210) 0 /100 WBC 0-0 NEUTROPHILS RELATIVE PERCENT (BEAKER) (test hgqn=110) 83 % LYMPHOCYTES RELATIVE PERCENT (BEAKER) (test pofq=915) 7 % MONOCYTES RELATIVE PERCENT (BEAKER) (test xoym=892) 8 % EOSINOPHILS RELATIVE PERCENT (BEAKER) (test rzwq=922) 0 % BASOPHILS RELATIVE PERCENT (BEAKER) (test jbul=673) 0 % NEUTROPHILS ABSOLUTE COUNT (BEAKER) (test rvax=175) 7.51 K/ L 1.78-5.38 LYMPHOCYTES ABSOLUTE COUNT (BEAKER) (test xnzt=101) 0.62 K/ L 1.32-3.57 MONOCYTES ABSOLUTE COUNT (BEAKER) (test xopo=406) 0.71 K/ L 0.30-0.82 EOSINOPHILS ABSOLUTE COUNT (BEAKER) (test guzf=897) 0.02 K/ L 0.04-0.54 BASOPHILS ABSOLUTE COUNT (BEAKER) (test uhuu=122) 0.02 K/ L 0.01-0.08 IMMATURE GRANULOCYTES-RELATIVE PERCENT (BEAKER) (test xzzw=6885) 2 % 0-1 POCT-GLUCOSE [id number] 22:48:00* Test Item Value Reference Range Comments POC-GLUCOSE METER (BEAKER) (test uwpm=6075) 154 mg/dL 70-110 TESTED AT [facility] [address] [facility] [address] POCT-GLUCOSE [id number] 17:54:00* Test Item Value Reference Range Comments POC-GLUCOSE METER (BEAKER) (test goav=8707) 187 mg/dL 70-110 TESTED AT [address] [address] [id number] 13:50:00* Test Item Value Reference Range Comments POTASSIUM (BEAKER) (test sbqg=513) 3.9 meq/L 3.5-5.1 Every 8 hours PRN for Creatinine greater than or equal to 2 mg/dL.BLOOD GAS, [id number] 13:32:00* Test Item Value Reference Range Comments PH ARTERIAL (BEAKER) (test mdnk=219) 7.49 7.35-7.45 PCO2 ARTERIAL (BEAKER) (test ibzo=284) 32 mmHg 35-45 PO2 ARTERIAL (BEAKER) (test xikf=564) 100 mmHg 80-90 O2 SATURATION ARTERIAL (BEAKER) (test loji=945) 98.1 % 96.0-97.0 HCO3 ARTERIAL (BEAKER) (test sesx=601) 24 mmol/L 21-29 BASE EXCESS ARTERIAL (BEAKER) (test ynit=849) 1.2 mmol/L -2.0-3.0 PATIENT TEMPERATURE (BEAKER) (test pbau=5184) 37.0 C FIO2 (BEAKER) (test mimj=5377) 60.0 % POCT-GLUCOSE [id number] 12:28:00* Test Item Value Reference Range Comments POC-GLUCOSE METER (BEAKER) (test zzku=2802) 176 mg/dL 70-110 TESTED AT [place] [id number] [facility] [address] URINE [id number] 11:04:00* Test Item Value Reference Range Comments CULTURE (BEAKER) (test iuoj=9644) No growth RAD, CHEST, 1 VIEW, NON [id number] 07:36:00Reason for exam:->f/u PTXShould this be performed at the bedside?->YesFINAL REPORT TECHNIQUE: Frontal view of the chest. INDICATION: 68-year-old man with pneumothorax. COMPARISON: Chest radiograph 02/06/2018. FINDINGS: LINES/TUBES: Unchanged. LUNGS: No significant change in bilateral airspace opacities. PLEURA: Decrease small right apical pneumothorax. No significant pleural effusion. HEART AND MEDIASTINUM: The cardiomediastinal silhouette is prominent, but unchanged. Atherosclerotic calcifications in the thoracic aorta. SOFT TISSUES AND BONES: Unchanged median sternotomy wires. Unchanged air in the soft tissues of the right chest. IMPRESSION:Decreased small right apical pneumothorax. Otherwise, no significant change since 02/06/2018. Signed: Josefa Woodruff MDReport Verified Date/Time: 02/07/2018 07:36:07 Reading Location: [facility] C013Y CT Body Reading Room [id number] 05:37:00* Test Item Value Reference Range Comments MAGNESIUM (BEAKER) (test xpmx=194) 2.2 mg/dL 1.6-2.6 BASIC METABOLIC [id number] 05:37:00* Test Item Value Reference Range Comments SODIUM (BEAKER) (test zjpo=611) 146 meq/L 136-145 POTASSIUM (BEAKER) (test pyeq=467) 3.9 meq/L 3.5-5.1 CHLORIDE (BEAKER) (test wdqm=321) 116 meq/L 98-107 CO2 (BEAKER) (test mnvj=048) 24 meq/L 22-29 BLOOD UREA NITROGEN (BEAKER) (test fply=607) 32 mg/dL 7-21 CREATININE (BEAKER) (test vkag=372) 0.90 mg/dL 0.57-1.25 GLUCOSE RANDOM (BEAKER) (test ftav=143) 140 mg/dL 70-105 CALCIUM (BEAKER) (test aoon=526) 8.3 mg/dL 8.4-10.2 EGFR (BEAKER) (test aqic=3748) 83 mL/min/1.73 sq m ESTIMATED GFR IS NOT ACCURATE CREATININE CLEARANCE IN PREDICTING GLOMERULAR FILTRATION RATE. ESTIMATED GFR IS NOT APPLICABLE FOR DIALYSIS PATIENTS. BLOOD GAS, [id number] 05:34:00* Test Item Value Reference Range Comments PH ARTERIAL (BEAKER) (test oimk=895) 7.48 7.35-7.45 PCO2 ARTERIAL (BEAKER) (test zstx=063) 32 mmHg 35-45 PO2 ARTERIAL (BEAKER) (test rvfp=555) 117 mmHg 80-90 O2 SATURATION ARTERIAL (BEAKER) (test byxy=196) 98.5 % 96.0-97.0 HCO3 ARTERIAL (BEAKER) (test acss=954) 23 mmol/L 21-29 BASE EXCESS ARTERIAL (BEAKER) (test wlim=403) 0.0 mmol/L -2.0-3.0 PATIENT TEMPERATURE (BEAKER) (test zpfp=9254) 37.0 C FIO2 (BEAKER) (test dbsf=2484) 70.0 % CBC (HEMOGRAM ONLY)2018-02-07 05:11:00* Test Item Value Reference Range Comments WHITE BLOOD CELL COUNT (BEAKER) (test erip=736) 9.3 K/ L 3.5-10.5 RED BLOOD CELL COUNT (BEAKER) (test mqlx=402) 2.93 M/ L 4.63-6.08 HEMOGLOBIN (BEAKER) (test szib=625) 8.8 GM/DL 13.7-17.5 HEMATOCRIT (BEAKER) (test qoxp=751) 27.2 % 40.1-51.0 MEAN CORPUSCULAR VOLUME (BEAKER) (test eupc=782) 92.8 fL 79.0-92.2 MEAN CORPUSCULAR HEMOGLOBIN (BEAKER) (test fbvb=888) 30.0 pg 25.7-32.2 MEAN CORPUSCULAR HEMOGLOBIN CONC (BEAKER) (test lglu=122) 32.4 GM/DL 32.3-36.5 RED CELL DISTRIBUTION WIDTH (BEAKER) (test eekf=582) 14.7 % 11.6-14.4 PLATELET COUNT (BEAKER) (test mhvy=578) 110 K/CU MM 150-450 MEAN PLATELET VOLUME (BEAKER) (test dyby=403) 10.6 fL 9.4-12.4 NUCLEATED RED BLOOD CELLS (BEAKER) (test xdcc=168) 0 /100 WBC 0-0 POCT-GLUCOSE [id number] 00:27:00* Test Item Value Reference Range Comments POC-GLUCOSE METER (BEAKER) (test hgrv=2250) 160 mg/dL 70-110 TESTED AT [facility] [address] [facility] [address] [id number] 00:27:00* Test Item Value Reference Range Comments POTASSIUM (BEAKER) (test ysnn=251) 3.5 meq/L 3.5-5.1 [id number] 00:27:00* Test Item Value Reference Range Comments MAGNESIUM (BEAKER) (test qica=526) 2.0 mg/dL 1.6-2.6 BLOOD GAS, [id number] 20:05:00* Test Item Value Reference Range Comments PH ARTERIAL (BEAKER) (test jzfp=535) 7.51 7.35-7.45 PCO2 ARTERIAL (BEAKER) (test bnyy=656) 30 mmHg 35-45 PO2 ARTERIAL (BEAKER) (test gfuy=296) 66 mmHg 80-90 O2 SATURATION ARTERIAL (BEAKER) (test cafc=723) 94.5 % 96.0-97.0 HCO3 ARTERIAL (BEAKER) (test vyue=636) 23 mmol/L 21-29 BASE EXCESS ARTERIAL (BEAKER) (test lceg=773) 0.6 mmol/L -2.0-3.0 PATIENT TEMPERATURE (BEAKER) (test yloh=6984) 37.5 C FIO2 (BEAKER) (test eric=4374) 100.0 % [id number] 18:38:00* Test Item Value Reference Range Comments POTASSIUM (BEAKER) (test zasc=527) 3.8 meq/L 3.5-5.1 Check Serum Potassium level 2 hours after oral potassium replacement completed o r 30 min after intravenous potassium replacement.POCT-GLUCOSE [id number] 17:34:00* Test Item Value Reference Range Comments POC-GLUCOSE METER (BEAKER) (test pdux=6659) 136 mg/dL 70-110 TESTED AT [facility] [address] [facility] [address] RAD, CHEST, 1 VIEW, NON [id number] 17:34:00Reason for exam:->f/u PTXShould this be performed at the bedside?->YesFINAL REPORT AP chest HISTORY: Pneumothorax COMPARISON: 02/07/2008 IMPRESSION:Small right apical pneumothorax appears decreased in volume. Stable cardiac silhouette. Worsened interstitial edema and left basilar atelectasis. Signed: Nuris Lorenzana MDReport Verified Date/Time: 02/06/2018 17:34:11 Reading Location: [facility] C013X Ortho Consult Reading Room C METABOLIC [id number] 15:06:00* Test Item Value Reference Range Comments SODIUM (BEAKER) (test jzba=930) 149 meq/L 136-145 POTASSIUM (BEAKER) (test jwfe=121) 3.2 meq/L 3.5-5.1 CHLORIDE (BEAKER) (test hvhj=846) 118 meq/L 98-107 CO2 (BEAKER) (test pvbh=019) 23 meq/L 22-29 BLOOD UREA NITROGEN (BEAKER) (test fzjm=503) 38 mg/dL 7-21 CREATININE (BEAKER) (test lgcj=962) 1.12 mg/dL 0.57-1.25 GLUCOSE RANDOM (BEAKER) (test qvhc=603) 138 mg/dL 70-105 CALCIUM (BEAKER) (test mppv=662) 8.3 mg/dL 8.4-10.2 EGFR (BEAKER) (test gmdb=4964) 65 mL/min/1.73 sq m ESTIMATED GFR IS NOT ACCURATE CREATININE CLEARANCE IN PREDICTING GLOMERULAR FILTRATION RATE. ESTIMATED GFR IS NOT APPLICABLE FOR DIALYSIS PATIENTS. POCT-GLUCOSE [id number] 11:53:00* Test Item Value Reference Range Comments POC-GLUCOSE METER (BEAKER) (test cvzj=3694) 159 mg/dL 70-110 TESTED AT [facility] [address] [facility] [address] RAD, CHEST, 1 VIEW, NON [id number] 11:39:00Reason for exam:->ptxShould this be performed at the bedside?->YesFINAL REPORT TECHNIQUE: Frontal view of the chest. INDICATION: 68-year-old man with pneumothorax. COMPARISON: Chest radiograph 02/05/2018. FINDINGS: LINES/TUBES: Unchanged. LUNGS: Unchanged airspace opacities in both lower lung zones, left greater than right. PLEURA: Right pneumothorax with maximal air gap of 2.3 cm. Questionable trace bilateral pleural effusions are unchanged. HEART AND MEDIASTINUM: The cardiomediastinal silhouette is unchanged. SOFT TISSUES AND BONES: Unremarkable. IMPRESSION:Right pneumothorax. Otherwise, no significant change since 02/05/2018. Signed: Josefa Woodruffeport Verified Date/Time: 02/06/2018 11:39:18 Reading Location: [facility] B1 C013Y CT Body Reading Room D GAS, ARTERIAL 2018-02-06 09:23:00* Test Item Value Reference Range Comments PH ARTERIAL (BEAKER) (test pwkk=943) 7.49 7.35-7.45 PCO2 ARTERIAL (BEAKER) (test qwsa=477) 32 mmHg 35-45 PO2 ARTERIAL (BEAKER) (test mojq=976) 124 mmHg 80-90 O2 SATURATION ARTERIAL (BEAKER) (test stdd=867) 98.7 % 96.0-97.0 HCO3 ARTERIAL (BEAKER) (test ptty=765) 23 mmol/L 21-29 BASE EXCESS ARTERIAL (BEAKER) (test zrkw=800) 0.4 mmol/L -2.0-3.0 PATIENT TEMPERATURE (BEAKER) (test zulw=2250) 37.0 C FIO2 (BEAKER) (test fczn=9860) 40.0 % [id number] 04:41:00* Test Item Value Reference Range Comments MAGNESIUM (BEAKER) (test qurs=859) 2.2 mg/dL 1.6-2.6 BASIC METABOLIC [id number] 04:41:00* Test Item Value Reference Range Comments SODIUM (BEAKER) (test mmvj=756) 150 meq/L 136-145 POTASSIUM (BEAKER) (test orpr=161) 3.6 meq/L 3.5-5.1 CHLORIDE (BEAKER) (test bfak=407) 119 meq/L 98-107 CO2 (BEAKER) (test jbpf=884) 23 meq/L 22-29 BLOOD UREA NITROGEN (BEAKER) (test ywny=533) 37 mg/dL 7-21 CREATININE (BEAKER) (test rxjj=900) 1.05 mg/dL 0.57-1.25 GLUCOSE RANDOM (BEAKER) (test fyfz=102) 145 mg/dL 70-105 CALCIUM (BEAKER) (test unno=449) 8.3 mg/dL 8.4-10.2 EGFR (BEAKER) (test kdta=5652) 70 mL/min/1.73 sq m ESTIMATED GFR IS NOT ACCURATE CREATININE CLEARANCE IN PREDICTING GLOMERULAR FILTRATION RATE. ESTIMATED GFR IS NOT APPLICABLE FOR DIALYSIS PATIENTS. BLOOD GAS, [id number] 04:20:00* Test Item Value Reference Range Comments PH ARTERIAL (BEAKER) (test dyhv=141) 7.48 7.35-7.45 PCO2 ARTERIAL (BEAKER) (test zbxe=962) 34 mmHg 35-45 PO2 ARTERIAL (BEAKER) (test pepd=048) 126 mmHg 80-90 O2 SATURATION ARTERIAL (BEAKER) (test evfy=039) 98.7 % 96.0-97.0 HCO3 ARTERIAL (BEAKER) (test kbsq=259) 24 mmol/L 21-29 BASE EXCESS ARTERIAL (BEAKER) (test nwbj=054) 0.9 mmol/L -2.0-3.0 PATIENT TEMPERATURE (BEAKER) (test okas=8116) 37.5 C FIO2 (BEAKER) (test zfxo=1642) 50.0 % CBC (HEMOGRAM ONLY)2018-02-06 03:57:00* Test Item Value Reference Range Comments WHITE BLOOD CELL COUNT (BEAKER) (test pvbm=589) 7.1 K/ L 3.5-10.5 RED BLOOD CELL COUNT (BEAKER) (test zbkz=854) 2.75 M/ L 4.63-6.08 HEMOGLOBIN (BEAKER) (test cmpt=214) 8.2 GM/DL 13.7-17.5 HEMATOCRIT (BEAKER) (test gdww=311) 25.4 % 40.1-51.0 MEAN CORPUSCULAR VOLUME (BEAKER) (test cszj=801) 92.4 fL 79.0-92.2 MEAN CORPUSCULAR HEMOGLOBIN (BEAKER) (test hicd=431) 29.8 pg 25.7-32.2 MEAN CORPUSCULAR HEMOGLOBIN CONC (BEAKER) (test ygcb=257) 32.3 GM/DL 32.3-36.5 RED CELL DISTRIBUTION WIDTH (BEAKER) (test ahqm=166) 15.4 % 11.6-14.4 PLATELET COUNT (BEAKER) (test zjdx=336) 79 K/CU MM 150-450 MEAN PLATELET VOLUME (BEAKER) (test lspn=733) 10.9 fL 9.4-12.4 NUCLEATED RED BLOOD CELLS (BEAKER) (test unlo=211) 0 /100 WBC 0-0 BLOOD GAS, [id number] 22:52:00* Test Item Value Reference Range Comments PH ARTERIAL (BEAKER) (test trwn=134) 7.48 7.35-7.45 PCO2 ARTERIAL (BEAKER) (test riot=728) 33 mmHg 35-45 PO2 ARTERIAL (BEAKER) (test unug=301) 134 mmHg 80-90 O2 SATURATION ARTERIAL (BEAKER) (test xxyv=591) 98.8 % 96.0-97.0 HCO3 ARTERIAL (BEAKER) (test zybi=176) 24 mmol/L 21-29 BASE EXCESS ARTERIAL (BEAKER) (test wqae=346) 0.4 mmol/L -2.0-3.0 PATIENT TEMPERATURE (BEAKER) (test dymv=8995) 38.0 C FIO2 (BEAKER) (test namh=1491) 60.0 % RAD, CHEST, 1 VIEW, NON [id number] 22:11:00Reason for exam:->hypoxiaShould this be performed at the bedside?->YesFINAL REPORT RAD, CHEST, 1 VIEW, NON DEPT INDICATION: hypoxia COMPARISON: Same day plain radiograph the chest. FINDINGS: Portable frontal view of the chest. IMPRESSION: Support Lines: Stable. Lungs and pleura: Increased left basilar airspace opacities favored to represent partial left lower lobe collapse however superimposed infection cannot be excluded. Otherwise unchanged exam the opacity within the right upper and lower lung. Small bilateral pleural effusions. No pneumothorax. Heart and mediastinum: Stable contours. Stable surgical changes.Additional findings: None. Signed: Pascale Paula Verified Date/Time: 02/05/2018 22:11:59 Reading Location: [address] Transitional Reading Room Electronically signed by: PASCALE PAULA MD on 02/05 10:11 PM POCT-GLUCOSE [id number] 17:43:00* Test Item Value Reference Range Comments POC-GLUCOSE METER (BEAKER) (test cpop=6829) 153 mg/dL 70-110 TESTED AT [facility] [address] [facility] [address] BLOOD GAS, [id number] 15:41:00* Test Item Value Reference Range Comments PH ARTERIAL (BEAKER) (test emgo=067) 7.45 7.35-7.45 PCO2 ARTERIAL (BEAKER) (test atpo=011) 36 mmHg 35-45 PO2 ARTERIAL (BEAKER) (test ylsa=385) 90 mmHg 80-90 O2 SATURATION ARTERIAL (BEAKER) (test gjwu=691) 97.1 % 96.0-97.0 HCO3 ARTERIAL (BEAKER) (test vzit=812) 24 mmol/L 21-29 BASE EXCESS ARTERIAL (BEAKER) (test upie=475) 0.6 mmol/L -2.0-3.0 PATIENT TEMPERATURE (BEAKER) (test trsy=9952) 37.5 C FIO2 (BEAKER) (test ghyw=0363) 45.0 % RAD, ABDOMEN/KUB, 1 VIEW [id number] 13:45:00Reason for exam:->sp corpak placementFINAL REPORT TECHNIQUE: Supine radiograph of the abdomen dated 02/05/2018. HISTORY: Status post Corpak placement. COMPARISON: Abdominal radiograph dated 02/04/2018 IMPRESSION:Enteric tube is seen with the tip in either the first portion of the duodenum or the gastric pylorus. No air- filled, dilated loops of bowel to suggest obstruction. No free intraperitoneal air. No abnormal soft tissue mass or calcification. Signed: Quintin Suazoeport Verified Date/Time: 02/05/2018 13:45:09 Reading Location: [facility] Radiology Reading Room , CHEST, 1 VIEW, NON [id number] 13:37:00Reason for exam:->sp bronchFINAL REPORT TECHNIQUE: Frontal chest radiograph dated 02/05/2018. CLINICAL HISTORY: S/P Bronch COMPARISON STUDY: Chest radiograph performed earlier the same day IMPRESSION:Right-sided Marion-Darrell catheter has been removed. A right-sided vascular line has been placed and the tip projects over the superior vena cava near the right atrium. An enteric tube is seen with the tip below the edge of the film. Mediastinal and right sided chest tubes have been removed. There is stable atelectasis in the left lung base. Trace right pleural effusion is unchanged. No pneumothorax. Cardiomediastinal silhouette is stable in size. No pulmonary edema. Midline sternotomy wires are intact and well aligned. Signed: Quintin Suazo Verified Date/Time: 02/05/2018 13:37:39 Reading Location: [facility] Radiology Reading Room -GLUCOSE [id number] 13:03:00* Test Item Value Reference Range Comments POC-GLUCOSE METER (BEAKER) (test lcje=3224) 146 mg/dL 70-110 TESTED AT [address] [address] BLOOD GAS, [id number] 12:44:00* Test Item Value Reference Range Comments PH ARTERIAL (BEAKER) (test uqlw=246) 7.45 7.35-7.45 PCO2 ARTERIAL (BEAKER) (test eikc=272) 35 mmHg 35-45 PO2 ARTERIAL (BEAKER) (test ivos=463) 160 mmHg 80-90 O2 SATURATION ARTERIAL (BEAKER) (test cxxo=255) 99.1 % 96.0-97.0 HCO3 ARTERIAL (BEAKER) (test huwr=989) 24 mmol/L 21-29 BASE EXCESS ARTERIAL (BEAKER) (test zscf=054) 0.2 mmol/L -2.0-3.0 PATIENT TEMPERATURE (BEAKER) (test fsli=1432) 38.5 C FIO2 (BEAKER) (test lydz=9930) 70.0 % POCT-GLUCOSE [id number] 06:12:00* Test Item Value Reference Range Comments POC-GLUCOSE METER (BEAKER) (test tvlr=9001) 119 mg/dL 70-110 TESTED AT [address] [address] RAD, CHEST, 1 VIEW, NON [id number] 04:42:00Reason for exam:->post opShould this be performed at the bedside?->YesFINAL REPORT RAD, CHEST, 1 VIEW, NON DEPT INDICATION: post op COMPARISON: Prior day's exam FINDINGS: Portable frontal view of the chest. IMPRESSION: Support Lines: Stable. Lungs and pleura: Unchanged airspace and pleural opacities. Previously seen right apical small pneumothorax is not definitely identified on the current examination recommend continued close attention on follow-up imaging.Heart and mediastinum: Stable contours. Stable surgical changes.Additional findings: None. Signed: Pascale Paula Verified Date/Time: 02/05/2018 04:42:14 Reading Location: [facility] C013 Transitional Reading Room -GLUCOSE METER 2018-02-05 04:14:00* Test Item Value Reference Range Comments POC-GLUCOSE METER (BEAKER) (test teic=8826) 114 mg/dL 70-110 TESTED AT [facility] [address] [facility] [address] [id number] 03:58:00* Test Item Value Reference Range Comments MAGNESIUM (BEAKER) (test ibnw=822) 2.2 mg/dL 1.6-2.6 BASIC METABOLIC [id number] 03:58:00* Test Item Value Reference Range Comments SODIUM (BEAKER) (test offa=648) 148 meq/L 136-145 POTASSIUM (BEAKER) (test ckbn=980) 3.7 meq/L 3.5-5.1 CHLORIDE (BEAKER) (test yxqz=115) 117 meq/L 98-107 CO2 (BEAKER) (test qbkl=184) 23 meq/L 22-29 BLOOD UREA NITROGEN (BEAKER) (test nfaf=985) 24 mg/dL 7-21 CREATININE (BEAKER) (test xxlx=438) 1.13 mg/dL 0.57-1.25 GLUCOSE RANDOM (BEAKER) (test wqxj=377) 101 mg/dL 70-105 CALCIUM (BEAKER) (test bdiy=537) 8.8 mg/dL 8.4-10.2 EGFR (BEAKER) (test pyat=1276) 64 mL/min/1.73 sq m ESTIMATED GFR IS NOT ACCURATE CREATININE CLEARANCE IN PREDICTING GLOMERULAR FILTRATION RATE. ESTIMATED GFR IS NOT APPLICABLE FOR DIALYSIS PATIENTS. LACTIC ACID, ARTERIAL, WHOLE [id number] 03:46:00* Test Item Value Reference Range Comments LACTATE BLOOD ARTERIAL (2) (BEAKER) (test hpti=0656) 0.7 mmol/L 0.5-2.2 CBC (HEMOGRAM ONLY)2018-02-05 03:43:00* Test Item Value Reference Range Comments WHITE BLOOD CELL COUNT (BEAKER) (test dqnr=535) 6.9 K/ L 3.5-10.5 RED BLOOD CELL COUNT (BEAKER) (test ompn=110) 2.67 M/ L 4.63-6.08 HEMOGLOBIN (BEAKER) (test ptrb=093) 8.2 GM/DL 13.7-17.5 HEMATOCRIT (BEAKER) (test lsnh=441) 24.3 % 40.1-51.0 MEAN CORPUSCULAR VOLUME (BEAKER) (test qwrf=351) 91.0 fL 79.0-92.2 MEAN CORPUSCULAR HEMOGLOBIN (BEAKER) (test bzyi=414) 30.7 pg 25.7-32.2 MEAN CORPUSCULAR HEMOGLOBIN CONC (BEAKER) (test fugu=324) 33.7 GM/DL 32.3-36.5 RED CELL DISTRIBUTION WIDTH (BEAKER) (test dmgm=683) 15.9 % 11.6-14.4 PLATELET COUNT (BEAKER) (test xive=565) 72 K/CU MM 150-450 MEAN PLATELET VOLUME (BEAKER) (test fsbr=941) 10.8 fL 9.4-12.4 NUCLEATED RED BLOOD CELLS (BEAKER) (test ijcs=781) 0 /100 WBC 0-0 OXYGEN SATURATION, [id number] 03:21:00* Test Item Value Reference Range Comments O2 SATURATION (MEASURED) (BEAKER) (test quke=2247) 70.6 % BLOOD GAS, [id number] 03:21:00* Test Item Value Reference Range Comments PH ARTERIAL (BEAKER) (test ifbw=013) 7.46 7.35-7.45 PCO2 ARTERIAL (BEAKER) (test wzlu=898) 34 mmHg 35-45 PO2 ARTERIAL (BEAKER) (test nhvl=628) 85 mmHg 80-90 O2 SATURATION ARTERIAL (BEAKER) (test bihd=098) 96.4 % 96.0-97.0 HCO3 ARTERIAL (BEAKER) (test ydjx=669) 23 mmol/L 21-29 BASE EXCESS ARTERIAL (BEAKER) (test mytd=037) 0.2 mmol/L -2.0-3.0 PATIENT TEMPERATURE (BEAKER) (test yype=3322) 38.5 C FIO2 (BEAKER) (test kbqm=2944) 50.0 % POCT-GLUCOSE [id number] 03:12:00* Test Item Value Reference Range Comments POC-GLUCOSE METER (BEAKER) (test ilwy=5045) 118 mg/dL 70-110 TESTED AT [facility] [address] [facility] [address] POCT-GLUCOSE [id number] 02:27:00* Test Item Value Reference Range Comments POC-GLUCOSE METER (BEAKER) (test ueoi=1908) 107 mg/dL 70-110 TESTED AT [place] [id number] [facility] [address] POCT-GLUCOSE [id number] 01:18:00* Test Item Value Reference Range Comments POC-GLUCOSE METER (BEAKER) (test fxun=9440) 92 mg/dL 70-110 TESTED AT [address] [address] RAD, CHEST, 1 VIEW, NON [id number] 00:57:00Reason for exam:->hypoxiaShould this be performed at the bedside?->YesFINAL REPORT EXAMINATION: AP PORTABLE CHEST RADIOGRAPH CLINICAL INDICATION: Hypoxia IMPRESSION: Compared with chest radiograph performed 02/04/2018 at 1813 hours and supine abdominal radiograph performed 02/04/2018 at 2128 hours. The nasogastric tube has been removed in the interval. Additionally, the feeding tube is also no longer identified along the expected course of the esophagus or stomach. Recommend clinical correlation as the tip of the feeding tube may be within the patient's hypopharynx, mouth, nose or external to the patient. Support tube and catheter positions are otherwise unchanged. Opacities persist in both lungs, most conspicuous in the perihilar regions and lung bases. Al though a component may reflect atelectasis or scarring, mild pulmonary edema alexander uld also be considered. An underlying pneumonia cannot be excluded. Relatively s table bilateral pleural effusions are also again suspected. The heart is enlarge d as before. Mediastinal contours are grossly stable. In summary, constellation of findings are concerning for mild congestive heart failure-fluid overload. Of note, there is a small grossly stable right-sided pneumothorax with approximatel y 1.6 cm of apical pleural separation. The pneumothorax also has a small basilar -subpulmonic component. Recommend clinical correlation to confirm that the right -sided chest tube is functioning appropriately. Short-term imaging surveillance recommended. Results discussed with the nurse caring for the patient at time of dictation. She will notify the appropriate on-call clinician. Signed: Wale Alamo Verified Date/Time: 02/05/2018 00:57:22 Reading Location: [address] Reading Room -GLUCOSE [id number] 00:22:00* Test Item Value Reference Range Comments POC-GLUCOSE METER (BEAKER) (test wjcq=6963) 98 mg/dL 70-110 TESTED AT [address] [address] POCT-GLUCOSE [id number] 23:11:00* Test Item Value Reference Range Comments POC-GLUCOSE METER (BEAKER) (test nuvi=6562) 91 mg/dL 70-110 TESTED AT [address] [address] RAD, ABDOMEN/KUB, 1 VIEW [id number] 22:24:00Reason for exam:->feeding tube placementShould this be performed at the bedside?->YesFINAL REPORT Abdomen, 1 view. History: Feeding tube placement. Comparison: None available. Findings: Limited evaluation of the lower chest/upper abdomen demonstrates a feeding tube terminating in the region of the gastric fundus. Visualized bowel loops are nondilated. Signed: Flaquito Ledbetter Verified Date/Time: 02/04/2018 22:24:31 Reading Location: [address] Reading Room -GLUCOSE [id number] 21:04:00* Test Item Value Reference Range Comments POC-GLUCOSE METER (BEAKER) (test ygyr=8243) 110 mg/dL 70-110 TESTED AT [facility] [address] [facility] [address] POCT-GLUCOSE [id number] 20:05:00* Test Item Value Reference Range Comments POC-GLUCOSE METER (BEAKER) (test oxgn=6308) 106 mg/dL 70-110 TESTED AT [address] [address] RAD, CHEST, 1 VIEW, NON [id number] 19:29:00Reason for exam:->r/o pneumothoraxShould this be performed at the bedside?->YesFINAL REPORT Chest, 1 view, 02/04/2018 6:20 PM. Comparison: X-ray from earlier today. Discussion: ET tube, NG tube, right IJ Marion-Darrell catheter, right-sided chest tube are unchanged. There is no evidence of pneumothorax. The cardiomediastinal silhouette and pulmonary vasculature are prominent with bibasilar opacities without change. Median sternotomy wires and CABG clips are noted. The soft tissues and osseous structures are intact. IMPRESSION: No si gnificant change. Signed: Flaquito Ledbettereport Verified Date/Time: 19:29:55 Reading Location: [facility] [facility] [id number] Consult Reading Room [facility] signed by: FLAQUITO LEDBETTER M.D. on 02/04/2018 07:29 PM POCT-GLUCOSE METER 2018-02-04 17:57:00* Test Item Value Reference Range Comments POC-GLUCOSE METER (BEAKER) (test iyrk=4181) 123 mg/dL 70-110 TESTED AT [address] [address] POCT-GLUCOSE [id number] 16:59:00* Test Item Value Reference Range Comments POC-GLUCOSE METER (BEAKER) (test awqh=7883) 115 mg/dL 70-110 TESTED AT [address] [address] POCT-GLUCOSE [id number] 16:11:00* Test Item Value Reference Range Comments POC-GLUCOSE METER (BEAKER) (test uuac=3449) 129 mg/dL 70-110 TESTED AT [address] [address] POCT-GLUCOSE [id number] 15:15:00* Test Item Value Reference Range Comments POC-GLUCOSE METER (BEAKER) (test bmyc=1013) 146 mg/dL 70-110 TESTED AT [address] [address] POCT-GLUCOSE [id number] 15:15:00* Test Item Value Reference Range Comments POC-GLUCOSE METER (BEAKER) (test jyor=9763) 173 mg/dL 70-110 TESTED AT [address] [address] LACTIC ACID, ARTERIAL, WHOLE [id number] 14:24:00* Test Item Value Reference Range Comments LACTATE BLOOD ARTERIAL (2) (BEAKER) (test obqq=9991) 1.9 mmol/L 0.5-2.2 BLOOD GAS, [id number] 14:13:00* Test Item Value Reference Range Comments PH ARTERIAL (BEAKER) (test plmr=326) 7.48 7.35-7.45 PCO2 ARTERIAL (BEAKER) (test bhig=430) 33 mmHg 35-45 PO2 ARTERIAL (BEAKER) (test mvso=275) 70 mmHg 80-90 O2 SATURATION ARTERIAL (BEAKER) (test shej=219) 94.7 % 96.0-97.0 HCO3 ARTERIAL (BEAKER) (test kois=800) 24 mmol/L 21-29 BASE EXCESS ARTERIAL (BEAKER) (test xxvx=932) 1.2 mmol/L -2.0-3.0 PATIENT TEMPERATURE (BEAKER) (test efwz=0846) 38.0 C FIO2 (BEAKER) (test cgcl=1338) 40.0 % POCT-GLUCOSE [id number] 13:52:00* Test Item Value Reference Range Comments POC-GLUCOSE METER (BEAKER) (test qari=8409) 164 mg/dL 70-110 TESTED AT [place] [address] [id number] 12:46:00* Test Item Value Reference Range Comments MAGNESIUM (BEAKER) (test mwdc=763) 2.5 mg/dL 1.6-2.6 Specimen slightly hemolyzed Check Serum Magnesium level 2 hours after IV magnesium replacement.Check Serum P otassium level 2 hours after oral potassium replacement completed or 30 min afte r intravenous potassium replacement.[id number] 12:46:00* Test Item Value Reference Range Comments POTASSIUM (BEAKER) (test jejx=908) 3.6 meq/L 3.5-5.1 Specimen slightly hemolyzed Check Serum Magnesium level 2 hours after IV magnesium replacement.Check Serum P otassium level 2 hours after oral potassium replacement completed or 30 min afte r intravenous potassium replacement.POCT-GLUCOSE [id number] 11:24:00* Test Item Value Reference Range Comments POC-GLUCOSE METER (BEAKER) (test ynkf=7999) 166 mg/dL 70-110 TESTED AT [address] [address] POCT-GLUCOSE [id number] 11:23:00* Test Item Value Reference Range Comments POC-GLUCOSE METER (BEAKER) (test lpmv=9726) 196 mg/dL 70-110 TESTED AT [address] [address] POCT-GLUCOSE [id number] 11:23:00* Test Item Value Reference Range Comments POC-GLUCOSE METER (BEAKER) (test eier=5283) 168 mg/dL 70-110 TESTED AT [address] [address] POCT-GLUCOSE [id number] 11:23:00* Test Item Value Reference Range Comments POC-GLUCOSE METER (BEAKER) (test vyik=6988) 177 mg/dL 70-110 TESTED AT [address] [address] LACTIC ACID, ARTERIAL, WHOLE [id number] 11:05:00* Test Item Value Reference Range Comments LACTATE BLOOD ARTERIAL (2) (BEAKER) (test awqq=5978) 3.5 mmol/L 0.5-2.2 HEPATIC FUNCTION [id number] 10:55:00* Test Item Value Reference Range Comments TOTAL PROTEIN (BEAKER) (test izxf=684) 3.0 gm/dL 6.0-8.3 ALBUMIN (BEAKER) (test njer=2311) 1.7 g/dL 3.5-5.0 BILIRUBIN TOTAL (BEAKER) (test drjk=543) 0.6 mg/dL 0.2-1.2 BILIRUBIN DIRECT (BEAKER) (test bouk=837) 0.4 mg/dL 0.1-0.5 ALKALINE PHOSPHATASE (BEAKER) (test rrbq=307) 24 U/L 40-150 AST (SGOT) (BEAKER) (test fmkq=690) 24 U/L 5-34 ALT (SGPT) (BEAKER) (test vzky=780) 13 U/L 6-55 BLOOD GAS, [id number] 10:17:00* Test Item Value Reference Range Comments PH ARTERIAL (BEAKER) (test cgdi=743) 7.48 7.35-7.45 PCO2 ARTERIAL (BEAKER) (test ymmp=083) 27 mmHg 35-45 PO2 ARTERIAL (BEAKER) (test udpf=669) 131 mmHg 80-90 O2 SATURATION ARTERIAL (BEAKER) (test fkxf=885) 98.8 % 96.0-97.0 HCO3 ARTERIAL (BEAKER) (test etaf=534) 19 mmol/L 21-29 BASE EXCESS ARTERIAL (BEAKER) (test zvdu=135) -2.2 mmol/L -2.0-3.0 PATIENT TEMPERATURE (BEAKER) (test abyz=6579) 38.0 C FIO2 (BEAKER) (test jlvn=9485) 50.0 % RAD, CHEST, 1 VIEW, NON [id number] 06:40:00Reason for exam:->post opShould this be performed at the bedside?->YesFINAL REPORT RAD, CHEST, 1 VIEW, NON DEPT INDICATION: post op COMPARISON: Prior day's exam FINDINGS: Portable frontal view of the chest. IMPRESSION: Support Lines: Stable. Lungs and pleura: Unchanged airspace and pleural opacities. No pneumothorax.Heart and mediastinum: Stable contours. Stable surgical changes.Additional findings: None. Signed: Pascale Paula Verified Date/Time: 02/04/2018 06:40:52 Reading Location: [address] Transitional Reading Room Electronically signed by: PASCALE PAULA MD on 06:40 AM OXYGEN SATURATION, [id number] 05:33:00* Test Item Value Reference Range Comments O2 SATURATION (MEASURED) (BEAKER) (test erxk=6581) 84.6 % BLOOD GAS, [id number] 04:47:00* Test Item Value Reference Range Comments PH ARTERIAL (BEAKER) (test agad=579) 7.45 7.35-7.45 PCO2 ARTERIAL (BEAKER) (test mafa=627) 31 mmHg 35-45 PO2 ARTERIAL (BEAKER) (test ebfd=018) 130 mmHg 80-90 O2 SATURATION ARTERIAL (BEAKER) (test ooqf=198) 98.7 % 96.0-97.0 HCO3 ARTERIAL (BEAKER) (test tejz=664) 21 mmol/L 21-29 BASE EXCESS ARTERIAL (BEAKER) (test kwvo=755) -1.8 mmol/L -2.0-3.0 PATIENT TEMPERATURE (BEAKER) (test fzmy=7915) 37.7 C FIO2 (BEAKER) (test ndiz=4118) 65.0 % CALCIUM, [id number] 04:15:00* Test Item Value Reference Range Comments CALCIUM IONIZED (BEAKER) (test sxbx=196) 1.15 mmol/L 1.12-1.27 PH, BLOOD (BEAKER) (test ymxm=1669) 7.47 [id number] 04:15:00* Test Item Value Reference Range Comments PHOSPHORUS (BEAKER) (test raqw=685) 2.5 mg/dL 2.3-4.7 [id number] 04:15:00* Test Item Value Reference Range Comments MAGNESIUM (BEAKER) (test lntm=844) 2.0 mg/dL 1.6-2.6 BASIC METABOLIC [id number] 04:15:00* Test Item Value Reference Range Comments SODIUM (BEAKER) (test nnlg=528) 146 meq/L 136-145 POTASSIUM (BEAKER) (test fkxj=169) 3.7 meq/L 3.5-5.1 CHLORIDE (BEAKER) (test aomq=031) 113 meq/L 98-107 CO2 (BEAKER) (test hfer=497) 20 meq/L 22-29 BLOOD UREA NITROGEN (BEAKER) (test yrzu=729) 20 mg/dL 7-21 CREATININE (BEAKER) (test elyy=750) 1.47 mg/dL 0.57-1.25 GLUCOSE RANDOM (BEAKER) (test nizy=728) 159 mg/dL 70-105 CALCIUM (BEAKER) (test kbpr=396) 8.9 mg/dL 8.4-10.2 EGFR (BEAKER) (test xgbt=9210) 47 mL/min/1.73 sq m ESTIMATED GFR IS NOT ACCURATE CREATININE CLEARANCE IN PREDICTING GLOMERULAR FILTRATION RATE. ESTIMATED GFR IS NOT APPLICABLE FOR DIALYSIS PATIENTS. LACTIC ACID, ARTERIAL, WHOLE [id number] 04:10:00* Test Item Value Reference Range Comments LACTATE BLOOD ARTERIAL (2) (BEAKER) (test txsm=5980) 7.1 mmol/L 0.5-2.2 PT/[id number] 03:57:00* Test Item Value Reference Range Comments PROTIME (BEAKER) (test jkny=974) 17.6 seconds 11.7-14.7 INR (BEAKER) (test bsju=334) 1.5 <=5.9 PARTIAL THROMBOPLASTIN TIME (BEAKER) (test gytq=826) 38.3 seconds 22.5-36.0 RECOMMENDED COUMADIN/WARFARIN INR THERAPY RANGESSTANDARD DOSE: 2.0 - 3.0 Inclu arminda: PROPHYLAXIS for venous thrombosis, systemic embolization; TREATMENT for julián ous thrombosis and/or pulmonary embolus.HIGH RISK: Target INR is 2.5-3.5 for pat ients with mechanical heart valves.CBC (HEMOGRAM ONLY)2018-02-04 03:46:00* Test Item Value Reference Range Comments WHITE BLOOD CELL COUNT (BEAKER) (test epaz=686) 9.1 K/ L 3.5-10.5 RED BLOOD CELL COUNT (BEAKER) (test pxow=007) 3.04 M/ L 4.63-6.08 HEMOGLOBIN (BEAKER) (test dgjc=744) 9.0 GM/DL 13.7-17.5 HEMATOCRIT (BEAKER) (test wxba=253) 26.4 % 40.1-51.0 MEAN CORPUSCULAR VOLUME (BEAKER) (test dmuc=769) 86.8 fL 79.0-92.2 MEAN CORPUSCULAR HEMOGLOBIN (BEAKER) (test gyrx=387) 29.6 pg 25.7-32.2 MEAN CORPUSCULAR HEMOGLOBIN CONC (BEAKER) (test rkag=551) 34.1 GM/DL 32.3-36.5 RED CELL DISTRIBUTION WIDTH (BEAKER) (test alpz=280) 15.2 % 11.6-14.4 PLATELET COUNT (BEAKER) (test oqen=400) 82 K/CU MM 150-450 MEAN PLATELET VOLUME (BEAKER) (test qvhk=539) 10.8 fL 9.4-12.4 NUCLEATED RED BLOOD CELLS (BEAKER) (test yipk=251) 0 /100 WBC 0-0 POCT-GLUCOSE [id number] 02:29:00* Test Item Value Reference Range Comments POC-GLUCOSE METER (BEAKER) (test hgxc=3071) 169 mg/dL 70-110 TESTED AT [facility] [address] [facility] [address] BLOOD GAS, [id number] 23:56:00* Test Item Value Reference Range Comments PH ARTERIAL (BEAKER) (test zvgr=855) 7.49 7.35-7.45 PCO2 ARTERIAL (BEAKER) (test mvwe=115) 33 mmHg 35-45 PO2 ARTERIAL (BEAKER) (test pmfe=046) 86 mmHg 80-90 O2 SATURATION ARTERIAL (BEAKER) (test wbxw=692) 97.0 % 96.0-97.0 HCO3 ARTERIAL (BEAKER) (test nsur=169) 24 mmol/L 21-29 BASE EXCESS ARTERIAL (BEAKER) (test bygc=036) 1.5 mmol/L -2.0-3.0 PATIENT TEMPERATURE (BEAKER) (test wajd=6178) 37.8 C FIO2 (BEAKER) (test cvic=9766) 75.0 % SODIUM NA-STAT [id number] 23:56:00* Test Item Value Reference Range Comments SODIUM (BEAKER) (test xlky=417) 144 meq/L 135-148 POTASSIUM-STAT [id number] 23:56:00* Test Item Value Reference Range Comments POTASSIUM (BEAKER) (test hhqm=650) 3.4 meq/L 3.6-5.5 GLUCOSE-STAT [id number] 23:56:00* Test Item Value Reference Range Comments GLUCOSE RANDOM (BEAKER) (test djir=883) 143 mg/dL 70-110 HGB/HCT (H&H) - STAT [id number] 23:56:00* Test Item Value Reference Range Comments HEMOGLOBIN (BEAKER) (test wnoq=607) 10.2 g/dL 13.0-16.8 HEMATOCRIT (BEAKER) (test uzej=354) 30.0 % 40.0-50.0 BLOOD GAS, [id number] 20:48:00* Test Item Value Reference Range Comments PH ARTERIAL (BEAKER) (test ibsp=283) 7.49 7.35-7.45 PCO2 ARTERIAL (BEAKER) (test adis=557) 34 mmHg 35-45 PO2 ARTERIAL (BEAKER) (test egjf=222) 97 mmHg 80-90 O2 SATURATION ARTERIAL (BEAKER) (test yuxb=114) 97.7 % 96.0-97.0 HCO3 ARTERIAL (BEAKER) (test lhdj=837) 26 mmol/L 21-29 BASE EXCESS ARTERIAL (BEAKER) (test dtor=450) 2.6 mmol/L -2.0-3.0 PATIENT TEMPERATURE (BEAKER) (test ondc=8292) 37.9 C FIO2 (BEAKER) (test fsrj=2861) 75.0 % GLUCOSE-STAT [id number] 20:48:00* Test Item Value Reference Range Comments GLUCOSE RANDOM (BEAKER) (test mobo=446) 125 mg/dL 70-110 HGB/HCT (H&H) - STAT [id number] 20:48:00* Test Item Value Reference Range Comments HEMOGLOBIN (BEAKER) (test qtht=727) 10.5 g/dL 13.0-16.8 HEMATOCRIT (BEAKER) (test fujv=214) 31.0 % 40.0-50.0 SODIUM NA-STAT [id number] 20:47:00* Test Item Value Reference Range Comments SODIUM (BEAKER) (test fcgg=526) 143 meq/L 135-148 POTASSIUM-STAT [id number] 20:47:00* Test Item Value Reference Range Comments POTASSIUM (BEAKER) (test lfgp=605) 3.7 meq/L 3.6-5.5 SODIUM NA-STAT [id number] 19:33:00* Test Item Value Reference Range Comments SODIUM (BEAKER) (test aflf=180) 143 meq/L 135-148 POTASSIUM-STAT [id number] 19:33:00* Test Item Value Reference Range Comments POTASSIUM (BEAKER) (test llhl=869) 4.1 meq/L 3.6-5.5 BLOOD GAS, [id number] 19:33:00* Test Item Value Reference Range Comments PH ARTERIAL (BEAKER) (test hxnh=451) 7.47 7.35-7.45 PCO2 ARTERIAL (BEAKER) (test qscd=168) 34 mmHg 35-45 PO2 ARTERIAL (BEAKER) (test vkuu=205) 59 mmHg 80-90 O2 SATURATION ARTERIAL (BEAKER) (test vket=643) 90.9 % 96.0-97.0 HCO3 ARTERIAL (BEAKER) (test nvdv=775) 24 mmol/L 21-29 BASE EXCESS ARTERIAL (BEAKER) (test betb=491) 1.2 mmol/L -2.0-3.0 PATIENT TEMPERATURE (BEAKER) (test boct=0595) 38.1 C FIO2 (BEAKER) (test ncel=6921) 60.0 % GLUCOSE-STAT [id number] 19:33:00* Test Item Value Reference Range Comments GLUCOSE RANDOM (BEAKER) (test ejwa=181) 116 mg/dL 70-110 HGB/HCT (H&H) - STAT [id number] 19:33:00* Test Item Value Reference Range Comments HEMOGLOBIN (BEAKER) (test tywf=221) 13.2 g/dL 13.0-16.8 HEMATOCRIT (BEAKER) (test ulru=970) 39.0 % 40.0-50.0 BASIC METABOLIC [id number] 18:19:00* Test Item Value Reference Range Comments SODIUM (BEAKER) (test yeeu=734) 146 meq/L 136-145 POTASSIUM (BEAKER) (test wnzy=398) 3.9 meq/L 3.5-5.1 CHLORIDE (BEAKER) (test qplb=341) 113 meq/L 98-107 CO2 (BEAKER) (test wijt=038) 22 meq/L 22-29 BLOOD UREA NITROGEN (BEAKER) (test tegf=495) 20 mg/dL 7-21 CREATININE (BEAKER) (test naju=923) 1.55 mg/dL 0.57-1.25 GLUCOSE RANDOM (BEAKER) (test ujtu=568) 123 mg/dL 70-105 CALCIUM (BEAKER) (test naax=496) 8.7 mg/dL 8.4-10.2 EGFR (BEAKER) (test qsjz=5054) 45 mL/min/1.73 sq m ESTIMATED GFR IS NOT ACCURATE CREATININE CLEARANCE IN PREDICTING GLOMERULAR FILTRATION RATE. ESTIMATED GFR IS NOT APPLICABLE FOR DIALYSIS PATIENTS. LACTIC ACID, ARTERIAL, WHOLE [id number] 18:16:00* Test Item Value Reference Range Comments LACTATE BLOOD ARTERIAL (2) (BEAKER) (test dkld=7128) 3.6 mmol/L 0.5-2.2 POTASSIUM-STAT [id number] 17:18:00* Test Item Value Reference Range Comments POTASSIUM (BEAKER) (test yohl=597) 3.7 meq/L 3.6-5.5 SODIUM NA-STAT [id number] 17:18:00* Test Item Value Reference Range Comments SODIUM (BEAKER) (test yrto=815) 143 meq/L 135-148 BLOOD GAS, [id number] 17:17:00* Test Item Value Reference Range Comments PH ARTERIAL (BEAKER) (test qknj=056) 7.51 7.35-7.45 PCO2 ARTERIAL (BEAKER) (test avqi=867) 34 mmHg 35-45 PO2 ARTERIAL (BEAKER) (test xbuc=491) 74 mmHg 80-90 O2 SATURATION ARTERIAL (BEAKER) (test pyar=985) 95.7 % 96.0-97.0 HCO3 ARTERIAL (BEAKER) (test tazs=048) 26 mmol/L 21-29 BASE EXCESS ARTERIAL (BEAKER) (test nvbb=070) 3.2 mmol/L -2.0-3.0 PATIENT TEMPERATURE (BEAKER) (test oddv=1082) 37.8 C FIO2 (BEAKER) (test pvxe=4521) 40.0 % GLUCOSE-STAT [id number] 17:17:00* Test Item Value Reference Range Comments GLUCOSE RANDOM (BEAKER) (test clex=720) 122 mg/dL 70-110 HGB/HCT (H&H) - STAT [id number] 17:17:00* Test Item Value Reference Range Comments HEMOGLOBIN (BEAKER) (test hjfw=225) 10.1 g/dL 13.0-16.8 HEMATOCRIT (BEAKER) (test eamt=397) 30.0 % 40.0-50.0 PLATELET AGGREGATION: FUNCTION [id number] 15:49:00* Test Item Value Reference Range Comments WEAK ADP RESULT(BEAKER) (test jfse=2643) 14 % 60-91 PLATELET FUNCTION SCREEN INTERP (BEAKER) (test oweo=4425) 0-39% indicates marked platelet dysfunction [id number] (BEAKER) (test ncbg=9833) Onesimo Garcia M.D. (electonic signature) PLATELET COUNT AGG (BEAKER) (test xpir=3072) 180 K/CU MM 150-450 Platelet Function Screen results may be falsely low with platelet counts< 100,000/cu mm.LACTIC ACID, ARTERIAL, WHOLE [id number] 15:31:00* Test Item Value Reference Range Comments LACTATE BLOOD ARTERIAL (2) (BEAKER) (test wjhj=1740) 4.0 mmol/L 0.5-2.2 BLOOD GAS, [id number] 15:12:00* Test Item Value Reference Range Comments PH ARTERIAL (BEAKER) (test owol=790) 7.53 7.35-7.45 PCO2 ARTERIAL (BEAKER) (test pgha=581) 29 mmHg 35-45 PO2 ARTERIAL (BEAKER) (test lqkd=895) 112 mmHg 80-90 O2 SATURATION ARTERIAL (BEAKER) (test cdfs=852) 98.4 % 96.0-97.0 HCO3 ARTERIAL (BEAKER) (test qcyh=602) 23 mmol/L 21-29 BASE EXCESS ARTERIAL (BEAKER) (test yikn=198) 1.3 mmol/L -2.0-3.0 PATIENT TEMPERATURE (BEAKER) (test bubd=7075) 37.9 C FIO2 (BEAKER) (test yhad=9565) 50.0 % SODIUM NA-STAT [id number] 15:12:00* Test Item Value Reference Range Comments SODIUM (BEAKER) (test rbvx=862) 142 meq/L 135-148 POTASSIUM-STAT [id number] 15:12:00* Test Item Value Reference Range Comments POTASSIUM (BEAKER) (test omnf=255) 4.0 meq/L 3.6-5.5 GLUCOSE-STAT [id number] 15:12:00* Test Item Value Reference Range Comments GLUCOSE RANDOM (BEAKER) (test pkaz=301) 121 mg/dL 70-110 HGB/HCT (H&H) - STAT [id number] 15:12:00* Test Item Value Reference Range Comments HEMOGLOBIN (BEAKER) (test fffn=205) 10.9 g/dL 13.0-16.8 HEMATOCRIT (BEAKER) (test eudy=137) 32.0 % 40.0-50.0 CBC W/PLT COUNT & AUTO [id number] 14:30:00* Test Item Value Reference Range Comments WHITE BLOOD CELL COUNT (BEAKER) (test hzar=189) 5.1 K/ L 3.5-10.5 RED BLOOD CELL COUNT (BEAKER) (test veax=483) 3.22 M/ L 4.63-6.08 HEMOGLOBIN (BEAKER) (test adwn=303) 9.5 GM/DL 13.7-17.5 HEMATOCRIT (BEAKER) (test xbpp=884) 27.6 % 40.1-51.0 MEAN CORPUSCULAR VOLUME (BEAKER) (test jqse=729) 85.7 fL 79.0-92.2 MEAN CORPUSCULAR HEMOGLOBIN (BEAKER) (test masw=943) 29.5 pg 25.7-32.2 MEAN CORPUSCULAR HEMOGLOBIN CONC (BEAKER) (test vypo=932) 34.4 GM/DL 32.3-36.5 RED CELL DISTRIBUTION WIDTH (BEAKER) (test obmq=715) 14.6 % 11.6-14.4 PLATELET COUNT (BEAKER) (test yzot=088) 82 K/CU MM 150-450 MEAN PLATELET VOLUME (BEAKER) (test agzl=887) 10.8 fL 9.4-12.4 NUCLEATED RED BLOOD CELLS (BEAKER) (test spaj=627) 0 /100 WBC 0-0 (CELLAVISION MANUAL DIFF)2018-02-03 14:30:00* Test Item Value Reference Range Comments NEUTROPHILS - REL (CELLAVISION)(BEAKER) (test ahqv=2438) 22 % LYMPHOCYTES - REL (CELLAVISION)(BEAKER) (test jsni=7448) 5 % MONOCYTES - REL (CELLAVISION)(BEAKER) (test mskm=0955) 3 % BASOPHILS - REL (CELLAVISION)(BEAKER) (test fglm=0926) 2 % METAMYELOCYTES - REL (CELLAVISION)(BEAKER) (test ddux=4091) 4 % 0-0 BANDS - REL (CELLAVISION)(BEAKER) (test inls=6471) 64 % 0-10 NEUTROPHILS - ABS (CELLAVISION)(BEAKER) (test bkhg=6153) 1.12 K/ul 1.78-5.38 LYMPHOCYTES - ABS (CELLAVISION)(BEAKER) (test twoh=0627) 0.26 K/ul 1.32-3.57 MONOCYTES - ABS (CELLAVISION)(BEAKER) (test ypvz=3275) 0.15 K/uL 0.30-0.82 BASOPHILS - ABS (CELLAVISION)(BEAKER) (test yiue=7587) 0.10 K/uL 0.01-0.08 METAMYELOCYTES - ABS (CELLAVISION)(BEAKER) (test fckj=1123) 0.20 K/uL 0.00-0.00 BANDS - ABS (CELLAVISION)(BEAKER) (test khxw=8232) 3.26 K/uL 0.00-0.80 TOTAL COUNTED (BEAKER) (test tyhc=8031) 100 WBC MORPHOLOGY (BEAKER) (test sgmj=650) Normal PLT MORPHOLOGY (BEAKER) (test cxiw=198) Normal ANISOCYTOSIS (BEAKER) (test izrn=007) 2+ moderate MICROCYTES (BEAKER) (test kxol=166) 2+ moderate ARTIFACT (CELLAVISION)(BEAKER) (test wkse=0010) Present PLATELET CONCENTRATION (CELLAVISION)(BEAKER) (test igbk=8677) Decreased Received comment: User comments: Slide comments: BASIC METABOLIC [id number] 13:15:00* Test Item Value Reference Range Comments SODIUM (BEAKER) (test xxac=844) 146 meq/L 136-145 POTASSIUM (BEAKER) (test zzqp=125) 3.8 meq/L 3.5-5.1 Specimen slightly hemolyzed CHLORIDE (BEAKER) (test unom=471) 113 meq/L 98-107 CO2 (BEAKER) (test bwep=010) 23 meq/L 22-29 BLOOD UREA NITROGEN (BEAKER) (test nqji=061) 16 mg/dL 7-21 CREATININE (BEAKER) (test xpgk=602) 1.34 mg/dL 0.57-1.25 Specimen slightly hemolyzed GLUCOSE RANDOM (BEAKER) (test dbwi=467) 129 mg/dL 70-105 CALCIUM (BEAKER) (test yfrd=521) 8.6 mg/dL 8.4-10.2 EGFR (BEAKER) (test ygak=4559) 53 mL/min/1.73 sq m ESTIMATED GFR IS NOT ACCURATE CREATININE CLEARANCE IN PREDICTING GLOMERULAR FILTRATION RATE. ESTIMATED GFR IS NOT APPLICABLE FOR DIALYSIS PATIENTS. LACTIC ACID, ARTERIAL, WHOLE [id number] 13:08:00* Test Item Value Reference Range Comments LACTATE BLOOD ARTERIAL (2) (BEAKER) (test wwqc=2135) 4.2 mmol/L 0.5-2.2 Specimen slightly hemolyzed RAD, CHEST, 1 VIEW, NON [id number] 12:53:00Reason for exam:-> hypoxemia/ettShould this be performed at the bedside?->YesFINAL REPORT RAD, CHEST, 1 VIEW, NON DEPT INDICATION: hypoxemia/ett COMPARISON: Eight hours prior FINDINGS: Portable frontal view of the chest. IMPRESSION: Support Lines: Endotracheal tube terminates 6 cm above the henry. Remaining support hardware is stable. Lungs and pleura: Subsegmental atelectasis improving on the left. Small bilateral pleural effusions are present, slightly larger on the left. No pneumothorax.Heart and mediastinum: Stable contours. Stable surgical changes.Additional findings: None. Signed: JR Gonzalez Robert MDReport Verified Date/Time: 02/03/2018 12:53:20 Reading Location: [facility] Radiology Reading Room D GAS, [id number] 12:45:00* Test Item Value Reference Range Comments PH ARTERIAL (BEAKER) (test yumj=617) 7.46 7.35-7.45 PCO2 ARTERIAL (BEAKER) (test unkq=243) 36 mmHg 35-45 PO2 ARTERIAL (BEAKER) (test axfp=727) 82 mmHg 80-90 O2 SATURATION ARTERIAL (BEAKER) (test ztgy=278) 96.2 % 96.0-97.0 HCO3 ARTERIAL (BEAKER) (test wbub=493) 25 mmol/L 21-29 BASE EXCESS ARTERIAL (BEAKER) (test hgez=776) 1.9 mmol/L -2.0-3.0 PATIENT TEMPERATURE (BEAKER) (test utwi=9061) 38.1 C FIO2 (BEAKER) (test mghl=1723) 60.0 % GLUCOSE-STAT [id number] 12:45:00* Test Item Value Reference Range Comments GLUCOSE RANDOM (BEAKER) (test qdgd=300) 131 mg/dL 70-110 HGB/HCT (H&H) - STAT [id number] 12:45:00* Test Item Value Reference Range Comments HEMOGLOBIN (BEAKER) (test qrfw=119) 10.5 g/dL 13.0-16.8 HEMATOCRIT (BEAKER) (test beww=369) 31.0 % 40.0-50.0 SODIUM NA-STAT [id number] 12:44:00* Test Item Value Reference Range Comments SODIUM (BEAKER) (test gmqu=439) 147 meq/L 135-148 POTASSIUM-STAT [id number] 12:44:00* Test Item Value Reference Range Comments POTASSIUM (BEAKER) (test zqlu=716) 3.8 meq/L 3.6-5.5 OXYGEN SATURATION, [id number] 12:41:00* Test Item Value Reference Range Comments O2 SATURATION (MEASURED) (BEAKER) (test ojvz=9256) 59.2 % POCT-GLUCOSE [id number] 10:51:00* Test Item Value Reference Range Comments POC-GLUCOSE METER (BEAKER) (test pjcq=9645) 141 mg/dL 70-110 TESTED AT [facility] [address] [place] [id number] LACTIC ACID, ARTERIAL, WHOLE [id number] 08:41:00* Test Item Value Reference Range Comments LACTATE BLOOD ARTERIAL (2) (BEAKER) (test fhqq=0241) 6.5 mmol/L 0.5-2.2 [id number] 08:34:00* Test Item Value Reference Range Comments MAGNESIUM (BEAKER) (test qliw=208) 2.6 mg/dL 1.6-2.6 Specimen slightly hemolyzed Check Serum Magnesium level 2 hours after IV magnesium replacement.Check Serum P otassium level 2 hours after oral potassium replacement completed or 30 min afte r intravenous potassium replacement.[id number] 08:34:00* Test Item Value Reference Range Comments POTASSIUM (BEAKER) (test ebix=024) 4.0 meq/L 3.5-5.1 Specimen slightly hemolyzed Check Serum Magnesium level 2 hours after IV magnesium replacement.Check Serum P otassium level 2 hours after oral potassium replacement completed or 30 min afte r intravenous potassium replacement.HGB/HCT (H&H) - STAT [id number] 08:21:00 * Test Item Value Reference Range Comments HEMOGLOBIN (BEAKER) (test homp=703) 11.0 g/dL 13.0-16.8 HEMATOCRIT (BEAKER) (test goqd=384) 32.0 % 40.0-50.0 BLOOD GAS, [id number] 08:20:00* Test Item Value Reference Range Comments PH ARTERIAL (BEAKER) (test yzja=345) 7.42 7.35-7.45 PCO2 ARTERIAL (BEAKER) (test orjb=733) 37 mmHg 35-45 PO2 ARTERIAL (BEAKER) (test dhnx=850) 82 mmHg 80-90 O2 SATURATION ARTERIAL (BEAKER) (test qjnj=507) 95.7 % 96.0-97.0 HCO3 ARTERIAL (BEAKER) (test mifz=654) 23 mmol/L 21-29 BASE EXCESS ARTERIAL (BEAKER) (test svwo=070) -0.7 mmol/L -2.0-3.0 PATIENT TEMPERATURE (BEAKER) (test porr=9976) 38.3 C FIO2 (BEAKER) (test khua=4599) 60.0 % GLUCOSE-STAT [id number] 08:20:00* Test Item Value Reference Range Comments GLUCOSE RANDOM (BEAKER) (test hisp=476) 139 mg/dL 70-110 SODIUM NA-STAT [id number] 08:19:00* Test Item Value Reference Range Comments SODIUM (BEAKER) (test wijs=783) 143 meq/L 135-148 POTASSIUM-STAT [id number] 08:19:00* Test Item Value Reference Range Comments POTASSIUM (BEAKER) (test nwfs=012) 3.8 meq/L 3.6-5.5 POCT-GLUCOSE [id number] 08:10:00* Test Item Value Reference Range Comments POC-GLUCOSE METER (BEAKER) (test aouo=5760) 161 mg/dL 70-110 TESTED AT [address] [address] LACTIC ACID, ARTERIAL, WHOLE [id number] 07:29:00* Test Item Value Reference Range Comments LACTATE BLOOD ARTERIAL (2) (BEAKER) (test gprh=5880) 6.9 mmol/L 0.5-2.2 Specimen slightly hemolyzed BLOOD GAS, [id number] 07:07:00* Test Item Value Reference Range Comments PH ARTERIAL (BEAKER) (test vfpq=764) 7.41 7.35-7.45 PCO2 ARTERIAL (BEAKER) (test rxhw=053) 37 mmHg 35-45 PO2 ARTERIAL (BEAKER) (test crxt=711) 57 mmHg 80-90 O2 SATURATION ARTERIAL (BEAKER) (test bgzn=505) 88.3 % 96.0-97.0 HCO3 ARTERIAL (BEAKER) (test dylh=299) 22 mmol/L 21-29 BASE EXCESS ARTERIAL (BEAKER) (test moip=508) -1.8 mmol/L -2.0-3.0 PATIENT TEMPERATURE (BEAKER) (test hobg=7862) 38.2 C FIO2 (BEAKER) (test rtxy=9465) 50.0 % POCT-GLUCOSE [id number] 06:20:00* Test Item Value Reference Range Comments POC-GLUCOSE METER (BEAKER) (test gbjj=1793) 210 mg/dL 70-110 TESTED AT [address] [address] [address] POCT-GLUCOSE [id number] 06:20:00* Test Item Value Reference Range Comments POC-GLUCOSE METER (BEAKER) (test llph=9106) 190 mg/dL 70-110 TESTED AT [address] [address] POCT-GLUCOSE [id number] 06:20:00* Test Item Value Reference Range Comments POC-GLUCOSE METER (BEAKER) (test qmzl=8102) 216 mg/dL 70-110 TESTED AT [place] [id number] [facility] [address] POCT-GLUCOSE [id number] 06:20:00* Test Item Value Reference Range Comments POC-GLUCOSE METER (BEAKER) (test jdok=2829) 179 mg/dL 70-110 TESTED AT [place] [id number] [facility] [address] HGB/HCT (H&H) - STAT [id number] 06:18:00* Test Item Value Reference Range Comments HEMOGLOBIN (BEAKER) (test ikzk=154) 10.8 g/dL 13.0-16.8 HEMATOCRIT (BEAKER) (test xjyx=338) 32.0 % 40.0-50.0 BLOOD GAS, [id number] 06:17:00* Test Item Value Reference Range Comments PH ARTERIAL (BEAKER) (test zyom=934) 7.41 7.35-7.45 PCO2 ARTERIAL (BEAKER) (test wxzr=515) 36 mmHg 35-45 PO2 ARTERIAL (BEAKER) (test rogj=321) 64 mmHg 80-90 O2 SATURATION ARTERIAL (BEAKER) (test buze=793) 92.2 % 96.0-97.0 HCO3 ARTERIAL (BEAKER) (test zwpa=876) 23 mmol/L 21-29 BASE EXCESS ARTERIAL (BEAKER) (test ywjh=842) -1.5 mmol/L -2.0-3.0 PATIENT TEMPERATURE (BEAKER) (test yhfv=0434) 37.7 C FIO2 (BEAKER) (test quoa=0346) 40.0 % BLOOD GAS, [id number] 05:36:00* Test Item Value Reference Range Comments PH ARTERIAL (BEAKER) (test txlf=936) 7.41 7.35-7.45 PCO2 ARTERIAL (BEAKER) (test nrhq=925) 37 mmHg 35-45 PO2 ARTERIAL (BEAKER) (test zzdl=024) 116 mmHg 80-90 O2 SATURATION ARTERIAL (BEAKER) (test xnqk=384) 98.2 % 96.0-97.0 HCO3 ARTERIAL (BEAKER) (test esyj=619) 23 mmol/L 21-29 BASE EXCESS ARTERIAL (BEAKER) (test ifnf=843) -1.3 mmol/L -2.0-3.0 PATIENT TEMPERATURE (BEAKER) (test nsfa=5872) 37.6 C FIO2 (BEAKER) (test eczb=3320) 60.0 % HGB/HCT (H&H) - STAT [id number] 04:54:00* Test Item Value Reference Range Comments HEMOGLOBIN (BEAKER) (test nzjg=284) 10.6 g/dL 13.0-16.8 HEMATOCRIT (BEAKER) (test prhc=923) 31.0 % 40.0-50.0 BLOOD GAS, [id number] 04:49:00* Test Item Value Reference Range Comments PH ARTERIAL (BEAKER) (test vdbm=318) 7.41 7.35-7.45 PCO2 ARTERIAL (BEAKER) (test bhnq=265) 38 mmHg 35-45 PO2 ARTERIAL (BEAKER) (test msdm=527) 88 mmHg 80-90 O2 SATURATION ARTERIAL (BEAKER) (test tenv=595) 96.7 % 96.0-97.0 HCO3 ARTERIAL (BEAKER) (test jfay=542) 23 mmol/L 21-29 BASE EXCESS ARTERIAL (BEAKER) (test xnpc=115) -1.0 mmol/L -2.0-3.0 PATIENT TEMPERATURE (BEAKER) (test addn=6298) 37.2 C FIO2 (BEAKER) (test ybnj=5283) 60.0 % RAD, CHEST, 1 VIEW, NON [id number] 04:45:00Reason for exam:->post opShould this be performed at the bedside?->YesFINAL REPORT CLINICAL INDICATION: Postop Comparison: 02/03/2018 at 0015 hours The cardiomediastinal contours are stable. Central pulmonary vascular congestion and bilateral parenchymal and pleural opacities are unchanged. There is no pneumothorax. Support lines are stable. Signed: Vince Jimenez MDReport Verified Date/Time: 02/03/2018 04:45:54 Reading Location: [address] Reading Room IC ACID, ARTERIAL, WHOLE [id number] 04:41:00* Test Item Value Reference Range Comments LACTATE BLOOD ARTERIAL (2) (BEAKER) (test snca=6703) 6.9 mmol/L 0.5-2.2 Specimen slightly hemolyzed OXYGEN SATURATION, [id number] 03:51:00* Test Item Value Reference Range Comments O2 SATURATION (MEASURED) (BEAKER) (test ezli=8045) 59.6 % THROMBOELASTOGRAPH (TEG)2018-02-03 03:50:00* Test Item Value Reference Range Comments TEG ACTIVATED CLOTTING TIME (BEAKER) (test skyl=3679) 8.2 minutes 4.0-7.0 TEG FIBRINOGEN ACTIVITY (BEAKER) (test cpml=9283) 58.5 degrees 61.0-73.0 TEG PLT. AGGREGATION (BEAKER) (test mqlc=2648) 54.3 MM 55.0-65.0 TEG FIBRINOLYSIS (BEAKER) (test hnnb=5254) 0.0 % 0.0-5.0 TGH ACTIVATED CLOTTING TIME (BEAKER) (test xaak=0797) 8.7 minutes 4.0-7.0 TGH FIBRINOGEN ACTIVITY (BEAKER) (test fhhl=8059) 67.9 degrees 61.0-73.0 TGH PLT. AGGREGATION (BEAKER) (test oevh=2123) 56.0 MM 55.0-65.0 TGH FIBRINOLYSIS (BEAKER) (test jvqx=3527) 0.0 % 0.0-5.0 HGB/HCT (H&H) - STAT [id number] 03:39:00* Test Item Value Reference Range Comments HEMOGLOBIN (BEAKER) (test qmun=526) 11.0 g/dL 13.0-16.8 HEMATOCRIT (BEAKER) (test vrjy=120) 32.0 % 40.0-50.0 BLOOD GAS, [id number] 03:37:00* Test Item Value Reference Range Comments PH ARTERIAL (BEAKER) (test aqjj=141) 7.46 7.35-7.45 PCO2 ARTERIAL (BEAKER) (test aotf=960) 30 mmHg 35-45 PO2 ARTERIAL (BEAKER) (test olrc=290) 153 mmHg 80-90 O2 SATURATION ARTERIAL (BEAKER) (test dial=466) 99.1 % 96.0-97.0 HCO3 ARTERIAL (BEAKER) (test fvtr=919) 20 mmol/L 21-29 BASE EXCESS ARTERIAL (BEAKER) (test tilj=465) -2.3 mmol/L -2.0-3.0 PATIENT TEMPERATURE (BEAKER) (test knna=1224) 36.7 C FIO2 (BEAKER) (test poet=7083) 80.0 % [id number] 03:35:00* Test Item Value Reference Range Comments MAGNESIUM (BEAKER) (test kfyk=370) 1.7 mg/dL 1.6-2.6 Specimen slightly hemolyzed [id number] 03:35:00* Test Item Value Reference Range Comments PHOSPHORUS (BEAKER) (test oywm=884) 3.5 mg/dL 2.3-4.7 Specimen slightly hemolyzed BASIC METABOLIC [id number] 03:35:00* Test Item Value Reference Range Comments SODIUM (BEAKER) (test gsne=256) 145 meq/L 136-145 POTASSIUM (BEAKER) (test yvgi=349) 4.2 meq/L 3.5-5.1 Specimen slightly hemolyzed CHLORIDE (BEAKER) (test kooy=329) 112 meq/L 98-107 CO2 (BEAKER) (test dnvt=997) 19 meq/L 22-29 BLOOD UREA NITROGEN (BEAKER) (test dzbl=334) 16 mg/dL 7-21 CREATININE (BEAKER) (test dfsx=910) 1.06 mg/dL 0.57-1.25 Specimen slightly hemolyzed GLUCOSE RANDOM (BEAKER) (test ieoj=689) 182 mg/dL 70-105 CALCIUM (BEAKER) (test efyh=183) 8.7 mg/dL 8.4-10.2 EGFR (BEAKER) (test fqng=1839) 69 mL/min/1.73 sq m ESTIMATED GFR IS NOT ACCURATE CREATININE CLEARANCE IN PREDICTING GLOMERULAR FILTRATION RATE. ESTIMATED GFR IS NOT APPLICABLE FOR DIALYSIS PATIENTS. PROTHROMBIN [id number] 03:31:00* Test Item Value Reference Range Comments PROTIME (BEAKER) (test voyj=251) 16.3 seconds 11.7-14.7 INR (BEAKER) (test lwam=199) 1.3 <=5.9 RECOMMENDED COUMADIN/WARFARIN INR THERAPY RANGESSTANDARD DOSE: 2.0 - 3.0 Inclu arminda: PROPHYLAXIS for venous thrombosis, systemic embolization; TREATMENT for julián ous thrombosis and/or pulmonary embolus.HIGH RISK: Target INR is 2.5-3.5 for pat ients with mechanical heart valves.[id number] 03:31:00* Test Item Value Reference Range Comments FIBRINOGEN LEVEL (BEAKER) (test xldq=710) 356 mg/dl 225-434 LACTIC ACID, ARTERIAL, WHOLE [id number] 03:31:00* Test Item Value Reference Range Comments LACTATE BLOOD ARTERIAL (2) (BEAKER) (test hxqv=7324) 7.8 mmol/L 0.5-2.2 Specimen slightly hemolyzed [id number] 03:31:00* Test Item Value Reference Range Comments PARTIAL THROMBOPLASTIN TIME (BEAKER) (test yiit=887) 37.1 seconds 22.5-36.0 POTASSIUM-STAT [id number] 03:30:00* Test Item Value Reference Range Comments POTASSIUM (BEAKER) (test adhq=762) 3.9 meq/L 3.6-5.5 CALCIUM, [id number] 03:30:00* Test Item Value Reference Range Comments CALCIUM IONIZED (BEAKER) (test fhfg=656) 1.13 mmol/L 1.12-1.27 PH, BLOOD (BEAKER) (test dvoo=8528) 7.43 PLATELET [id number] 03:23:00* Test Item Value Reference Range Comments PLATELET COUNT (BEAKER) (test nfrd=956) 83 K/CU MM 150-450 CBC (HEMOGRAM ONLY)2018-02-03 03:23:00* Test Item Value Reference Range Comments WHITE BLOOD CELL COUNT (BEAKER) (test ncbp=301) 3.4 K/ L 3.5-10.5 RED BLOOD CELL COUNT (BEAKER) (test ttwd=112) 3.38 M/ L 4.63-6.08 HEMOGLOBIN (BEAKER) (test pjgh=808) 10.2 GM/DL 13.7-17.5 HEMATOCRIT (BEAKER) (test onsm=877) 29.6 % 40.1-51.0 MEAN CORPUSCULAR VOLUME (BEAKER) (test xjjf=645) 87.6 fL 79.0-92.2 MEAN CORPUSCULAR HEMOGLOBIN (BEAKER) (test zpvo=899) 30.2 pg 25.7-32.2 MEAN CORPUSCULAR HEMOGLOBIN CONC (BEAKER) (test tfmn=926) 34.5 GM/DL 32.3-36.5 RED CELL DISTRIBUTION WIDTH (BEAKER) (test zmqn=129) 13.9 % 11.6-14.4 PLATELET COUNT (BEAKER) (test htnz=068) 83 K/CU MM 150-450 MEAN PLATELET VOLUME (BEAKER) (test bgnp=962) 10.0 fL 9.4-12.4 NUCLEATED RED BLOOD CELLS (BEAKER) (test mnyu=560) 0 /100 WBC 0-0 POCT-GLUCOSE [id number] 03:10:00* Test Item Value Reference Range Comments POC-GLUCOSE METER (BEAKER) (test dacp=6442) 196 mg/dL 70-110 TESTED AT [facility] [address] [facility] [address] POCT-GLUCOSE [id number] 03:09:00* Test Item Value Reference Range Comments POC-GLUCOSE METER (BEAKER) (test ejyg=9760) 170 mg/dL 70-110 TESTED AT [facility] [address] [facility] [address] BLOOD GAS, [id number] 01:16:00* Test Item Value Reference Range Comments PH ARTERIAL (BEAKER) (test zvnm=476) 7.41 7.35-7.45 PCO2 ARTERIAL (BEAKER) (test tslj=872) 33 mmHg 35-45 PO2 ARTERIAL (BEAKER) (test unrs=703) 74 mmHg 80-90 O2 SATURATION ARTERIAL (BEAKER) (test gepf=335) 95.6 % 96.0-97.0 HCO3 ARTERIAL (BEAKER) (test lsnc=615) 20 mmol/L 21-29 BASE EXCESS ARTERIAL (BEAKER) (test bujl=023) -3.9 mmol/L -2.0-3.0 PATIENT TEMPERATURE (BEAKER) (test vlcq=9761) 36.1 C FIO2 (BEAKER) (test evis=9482) 100.0 % COMPREHENSIVE METABOLIC [id number] 00:53:00* Test Item Value Reference Range Comments TOTAL PROTEIN (BEAKER) (test lnlp=847) 5.1 gm/dL 6.0-8.3 Specimen slightly hemolyzed ALBUMIN (BEAKER) (test smzt=7138) 3.0 g/dL 3.5-5.0 Specimen slightly hemolyzed ALKALINE PHOSPHATASE (BEAKER) (test iwxp=585) 45 U/L 40-150 BILIRUBIN TOTAL (BEAKER) (test dikg=681) 1.6 mg/dL 0.2-1.2 Specimen slightly hemolyzed SODIUM (BEAKER) (test vryb=296) 146 meq/L 136-145 POTASSIUM (BEAKER) (test gxeg=017) 4.6 meq/L 3.5-5.1 Specimen slightly hemolyzed CHLORIDE (BEAKER) (test czbv=242) 111 meq/L 98-107 CO2 (BEAKER) (test gkij=848) 18 meq/L 22-29 BLOOD UREA NITROGEN (BEAKER) (test kanv=738) 15 mg/dL 7-21 CREATININE (BEAKER) (test uyen=354) 1.05 mg/dL 0.57-1.25 Specimen slightly hemolyzed GLUCOSE RANDOM (BEAKER) (test tjsp=086) 151 mg/dL 70-105 CALCIUM (BEAKER) (test glho=842) 9.3 mg/dL 8.4-10.2 AST (SGOT) (BEAKER) (test uxzo=913) 28 U/L 5-34 Specimen slightly hemolyzed ALT (SGPT) (BEAKER) (test urlg=975) 17 U/L 6-55 Specimen slightly hemolyzed EGFR (BEAKER) (test hieq=6310) 70 mL/min/1.73 sq m ESTIMATED GFR IS NOT ACCURATE CREATININE CLEARANCE IN PREDICTING GLOMERULAR FILTRATION RATE. ESTIMATED GFR IS NOT APPLICABLE FOR DIALYSIS PATIENTS. [id number] 00:48:00* Test Item Value Reference Range Comments MAGNESIUM (BEAKER) (test jeka=292) 1.9 mg/dL 1.6-2.6 Specimen slightly hemolyzed [id number] 00:48:00* Test Item Value Reference Range Comments PHOSPHORUS (BEAKER) (test pdpr=037) 4.9 mg/dL 2.3-4.7 Specimen slightly hemolyzed HGB/HCT (H&H) - STAT [id number] 00:41:00* Test Item Value Reference Range Comments HEMOGLOBIN (BEAKER) (test tfet=132) 11.2 GM/DL 13.0-16.8 HEMATOCRIT (BEAKER) (test ouwl=049) 33.0 % 40.0-50.0 RAD, CHEST, 1 VIEW, NON [id number] 00:40:00while patient is intubated or has chest tubes.Reason for exam:->PostopShould this be performed at the bedside?-> YesFINAL REPORT CLINICAL INDICATION: Postop Comparison: 02/02/2018 at 2028 hours. The patient is rotated to the right. The cardiomediastinal contours are stable. Central pulmonary vascular congestion and bilateral parenchymal and left pleural opacities are similar within variation of acquisition technique. There is no pneumothorax. Support lines are stable. Signed: Vince Jimenez MDReport Verified Date/Time: 02/03/2018 00:40:08 Reading Location: [address] Reading Room IC ACID, ARTERIAL, WHOLE BLOOD 2018-02-03 00:39:00* Test Item Value Reference Range Comments LACTATE BLOOD ARTERIAL (2) (BEAKER) (test oyit=5069) 10.6 mmol/L 0.5-2.2 Specimen slightly hemolyzed OXYGEN SATURATION, [id number] 00:37:00* Test Item Value Reference Range Comments O2 SATURATION (MEASURED) (BEAKER) (test zxbt=4478) 76.3 % CALCIUM, [id number] 00:35:00* Test Item Value Reference Range Comments CALCIUM IONIZED (BEAKER) (test dwko=843) 1.18 mmol/L 1.12-1.27 PH, BLOOD (BEAKER) (test dqkb=0917) 7.32 BLOOD GAS, [id number] 00:33:00* Test Item Value Reference Range Comments PH ARTERIAL (BEAKER) (test swfi=011) 7.34 7.35-7.45 PCO2 ARTERIAL (BEAKER) (test dtsx=048) 35 mmHg 35-45 PO2 ARTERIAL (BEAKER) (test pcmb=791) 178 mmHg 80-90 O2 SATURATION ARTERIAL (BEAKER) (test yzrx=967) 99.2 % 96.0-97.0 HCO3 ARTERIAL (BEAKER) (test kwuq=524) 19 mmol/L 21-29 BASE EXCESS ARTERIAL (BEAKER) (test eglj=522) -6.8 mmol/L -2.0-3.0 PATIENT TEMPERATURE (BEAKER) (test vmyk=4959) 36.0 C FIO2 (BEAKER) (test xjsn=9097) 100.0 % [id number] 00:28:00* Test Item Value Reference Range Comments FIBRINOGEN LEVEL (BEAKER) (test ixie=788) 423 mg/dl 225-434 [id number] 00:28:00* Test Item Value Reference Range Comments PROTIME (BEAKER) (test dpgg=324) 16.7 seconds 11.7-14.7 INR (BEAKER) (test rzxi=513) 1.4 <=5.9 PARTIAL THROMBOPLASTIN TIME (BEAKER) (test eozl=061) 38.3 seconds 22.5-36.0 RECOMMENDED COUMADIN/WARFARIN INR THERAPY RANGESSTANDARD DOSE: 2.0 - 3.0 Inclu arminda: PROPHYLAXIS for venous thrombosis, systemic embolization; TREATMENT for julián ous thrombosis and/or pulmonary embolus.HIGH RISK: Target INR is 2.5-3.5 for pat ients with mechanical heart valves.CBC (HEMOGRAM ONLY)2018-02-03 00:20:00* Test Item Value Reference Range Comments WHITE BLOOD CELL COUNT (BEAKER) (test zhds=250) 4.4 K/ L 3.5-10.5 RED BLOOD CELL COUNT (BEAKER) (test hdos=320) 3.62 M/ L 4.63-6.08 HEMOGLOBIN (BEAKER) (test ovmi=455) 11.0 GM/DL 13.7-17.5 HEMATOCRIT (BEAKER) (test mluv=699) 32.4 % 40.1-51.0 MEAN CORPUSCULAR VOLUME (BEAKER) (test yrbx=518) 89.5 fL 79.0-92.2 MEAN CORPUSCULAR HEMOGLOBIN (BEAKER) (test mnfv=085) 30.4 pg 25.7-32.2 MEAN CORPUSCULAR HEMOGLOBIN CONC (BEAKER) (test yzuj=596) 34.0 GM/DL 32.3-36.5 RED CELL DISTRIBUTION WIDTH (BEAKER) (test bzvm=328) 13.6 % 11.6-14.4 PLATELET COUNT (BEAKER) (test usjz=732) 92 K/CU MM 150-450 MEAN PLATELET VOLUME (BEAKER) (test vrjp=899) 10.0 fL 9.4-12.4 NUCLEATED RED BLOOD CELLS (BEAKER) (test cqoq=142) 0 /100 WBC 0-0 THROMBOELASTOGRAPH (TEG)2018-02-03 00:18:00* Test Item Value Reference Range Comments TEG ACTIVATED CLOTTING TIME (BEAKER) (test abqo=8659) 8.3 minutes 4.0-7.0 TEG FIBRINOGEN ACTIVITY (BEAKER) (test tokn=7640) 56.9 degrees 61.0-73.0 TEG PLT. AGGREGATION (BEAKER) (test lnbs=0620) 43.1 MM 55.0-65.0 TGH ACTIVATED CLOTTING TIME (BEAKER) (test hdss=3910) 8.7 minutes 4.0-7.0 TGH FIBRINOGEN ACTIVITY (BEAKER) (test fwho=3042) 55.7 degrees 61.0-73.0 TGH PLT. AGGREGATION (BEAKER) (test vrln=4715) 40.4 MM 55.0-65.0 CALCIUM, [id number] 23:29:00* Test Item Value Reference Range Comments CALCIUM IONIZED (BEAKER) (test sycq=234) 1.06 mmol/L 1.12-1.27 PH, BLOOD (BEAKER) (test nker=9571) 7.32 [id number] 23:21:00* Test Item Value Reference Range Comments ACTIVATED CLOTTING TIME (BEAKER) (test bmyr=924) 131 sec TESTED AT [address] [address] [id number] 23:20:00* Test Item Value Reference Range Comments ACTIVATED CLOTTING TIME (BEAKER) (test nnno=674) 555 sec TESTED AT [address] [address] [id number] 23:20:00* Test Item Value Reference Range Comments ACTIVATED CLOTTING TIME (BEAKER) (test uxoa=626) > sec OUTSIDE MEASURING RANGETESTED AT [address] [address] SODIUM NA-STAT [id number] 23:14:00* Test Item Value Reference Range Comments SODIUM (BEAKER) (test ytoo=648) 142 meq/L 135-148 POTASSIUM-STAT [id number] 23:14:00* Test Item Value Reference Range Comments POTASSIUM (BEAKER) (test djmt=595) 4.4 meq/L 3.6-5.5 BLOOD GAS, [id number] 23:14:00* Test Item Value Reference Range Comments PH ARTERIAL (BEAKER) (test dmep=602) 7.34 7.35-7.45 PCO2 ARTERIAL (BEAKER) (test suhr=425) 38 mmHg 35-45 PO2 ARTERIAL (BEAKER) (test tdgf=925) 208 mmHg 80-90 O2 SATURATION ARTERIAL (BEAKER) (test pmjc=264) 99.4 % 96.0-97.0 HCO3 ARTERIAL (BEAKER) (test byxs=548) 20 mmol/L 21-29 BASE EXCESS ARTERIAL (BEAKER) (test xyrm=494) -5.2 mmol/L -2.0-3.0 PATIENT TEMPERATURE (BEAKER) (test dtfa=4283) 35.7 C FIO2 (BEAKER) (test akzi=9900) 100.0 % GLUCOSE-STAT [id number] 23:14:00* Test Item Value Reference Range Comments GLUCOSE RANDOM (BEAKER) (test inte=451) 154 mg/dL 70-110 HGB/HCT (H&H) - STAT [id number] 23:14:00* Test Item Value Reference Range Comments HEMOGLOBIN (BEAKER) (test stel=954) 10.2 g/dL 13.0-16.8 HEMATOCRIT (BEAKER) (test oncr=356) 30.0 % 40.0-50.0 [id number] 22:41:00* Test Item Value Reference Range Comments FIBRINOGEN LEVEL (BEAKER) (test plic=867) 88 mg/dl 225-434 POCT-GLUCOSE [id number] 22:32:00* Test Item Value Reference Range Comments POC-GLUCOSE METER (BEAKER) (test lody=0258) 225 mg/dL 70-110 TESTED AT [facility] [address] [facility] [address] [id number] 22:26:00* Test Item Value Reference Range Comments PARTIAL THROMBOPLASTIN TIME (BEAKER) (test snqi=669) 58.4 seconds 22.5-36.0 PROTHROMBIN [id number] 22:25:00* Test Item Value Reference Range Comments PROTIME (BEAKER) (test kubq=583) 34.5 seconds 11.7-14.7 INR (BEAKER) (test ilib=140) 3.4 <=5.9 RECOMMENDED COUMADIN/WARFARIN INR THERAPY RANGESSTANDARD DOSE: 2.0 - 3.0 Inclu arminda: PROPHYLAXIS for venous thrombosis, systemic embolization; TREATMENT for julián ous thrombosis and/or pulmonary embolus.HIGH RISK: Target INR is 2.5-3.5 for pat ients with mechanical heart valves.CALCIUM, [id number] 22:23:00* Test Item Value Reference Range Comments CALCIUM IONIZED (BEAKER) (test fgis=766) 1.03 mmol/L 1.12-1.27 PH, BLOOD (BEAKER) (test vpkv=8747) 7.31 PLATELET [id number] 22:19:00* Test Item Value Reference Range Comments PLATELET COUNT (BEAKER) (test xmha=285) 92 K/CU MM 150-450 RAD, CHEST, 1 VIEW, NON [id number] 22:16:00Reason for exam:->PostopShould this be performed at the bedside?->YesFINAL REPORT Chest one view. Clinical history: Postop Comparison: Chest radiograph 04/25/2003. Technique: A single frontal view of the chest was obtained. Findings/impression:Endotracheal and feeding tubes are in satisfactory positions. There is a right-sided chest tube with tip in the right perihilar region. There is a mediastinal drain. There is a right IJ Marion-Darrell catheter with tip in the proximal right main pulmonary artery. There is a right IJ ce ntral venous catheter with tip in the proximal right atrium. 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 The cardiac silhouette is mildly enlarged wh ich may be due to AP technique. The aorta is tortuous and atherosclerotic. Ther e is diffuse airspace opacity in the left lower lobe which may represent pneumon ia and/or atelectasis. There is a small left pleural effusion. There is no pneum othorax. Signed: Cathleen Hernandezeport Verified Date/Time: 02/02/2018 22 :16:34 Reading Location: [facility] C013Y CT Body Reading Room Electronically sig hugo by: CATHLEEN HERNANDEZ MD on 02/02/2018 10:16 PM BLOOD GAS, ARTERIAL 2018-02-02 22:13:00* Test Item Value Reference Range Comments PH ARTERIAL (BEAKER) (test nwdo=373) 7.31 7.35-7.45 PCO2 ARTERIAL (BEAKER) (test xeuu=781) 46 mmHg 35-45 PO2 ARTERIAL (BEAKER) (test crbw=455) 159 mmHg 80-90 O2 SATURATION ARTERIAL (BEAKER) (test fpjm=377) 98.9 % 96.0-97.0 HCO3 ARTERIAL (BEAKER) (test xrqy=524) 23 mmol/L 21-29 BASE EXCESS ARTERIAL (BEAKER) (test mxjp=168) -3.6 mmol/L -2.0-3.0 PATIENT TEMPERATURE (BEAKER) (test zaeu=8792) 36.1 C FIO2 (BEAKER) (test zhss=0721) 100.0 % GLUCOSE-STAT [id number] 22:13:00* Test Item Value Reference Range Comments GLUCOSE RANDOM (BEAKER) (test mpam=515) 159 mg/dL 70-110 HGB/HCT (H&H) - STAT [id number] 22:13:00* Test Item Value Reference Range Comments HEMOGLOBIN (BEAKER) (test vjxl=515) 7.3 g/dL 13.0-16.8 HEMATOCRIT (BEAKER) (test jemo=044) 21.0 % 40.0-50.0 THROMBOELASTOGRAPH (TEG)2018-02-02 22:13:00* Test Item Value Reference Range Comments TEG ACTIVATED CLOTTING TIME (BEAKER) (test zrzu=9038) 7.1 minutes 4.0-7.0 TEG FIBRINOGEN ACTIVITY (BEAKER) (test xubg=9748) 67.9 degrees 61.0-73.0 TEG PLT. AGGREGATION (BEAKER) (test dymh=5069) 53.7 MM 55.0-65.0 TEG FIBRINOLYSIS (BEAKER) (test ggzo=1349) 0.0 % 0.0-5.0 TGH ACTIVATED CLOTTING TIME (BEAKER) (test halm=8204) 6.8 minutes 4.0-7.0 TGH FIBRINOGEN ACTIVITY (BEAKER) (test xftm=7818) 67.7 degrees 61.0-73.0 TGH PLT. AGGREGATION (BEAKER) (test qmik=1891) 49.5 MM 55.0-65.0 TGH FIBRINOLYSIS (BEAKER) (test qkyw=2575) 0.0 % 0.0-5.0 SODIUM NA-STAT [id number] 22:12:00* Test Item Value Reference Range Comments SODIUM (BEAKER) (test qdml=263) 141 meq/L 135-148 POTASSIUM-STAT [id number] 22:12:00* Test Item Value Reference Range Comments POTASSIUM (BEAKER) (test acha=476) 4.3 meq/L 3.6-5.5 BLOOD GAS, [id number] 21:45:00* Test Item Value Reference Range Comments PH ARTERIAL (BEAKER) (test iuzy=678) 7.46 7.35-7.45 PCO2 ARTERIAL (BEAKER) (test jvyr=122) 40 mmHg 35-45 PO2 ARTERIAL (BEAKER) (test ikay=361) 450 mmHg 80-90 O2 SATURATION ARTERIAL (BEAKER) (test pxno=108) 99.9 % 96.0-97.0 HCO3 ARTERIAL (BEAKER) (test itbj=888) 29 mmol/L 21-29 BASE EXCESS ARTERIAL (BEAKER) (test kogm=294) 4.1 mmol/L -2.0-3.0 PATIENT TEMPERATURE (BEAKER) (test vklp=1082) 35.0 C FIO2 (BEAKER) (test qixu=9749) 80.0 % SODIUM NA-STAT [id number] 21:45:00* Test Item Value Reference Range Comments SODIUM (BEAKER) (test imed=134) 143 meq/L 135-148 GLUCOSE-STAT [id number] 21:45:00* Test Item Value Reference Range Comments GLUCOSE RANDOM (BEAKER) (test haoc=414) 183 mg/dL 70-110 HGB/HCT (H&H) - STAT [id number] 21:45:00* Test Item Value Reference Range Comments HEMOGLOBIN (BEAKER) (test xwec=724) 8.1 g/dL 13.0-16.8 HEMATOCRIT (BEAKER) (test glom=450) 24.0 % 40.0-50.0 POTASSIUM-STAT [id number] 21:44:00* Test Item Value Reference Range Comments POTASSIUM (BEAKER) (test eefr=410) 4.5 meq/L 3.6-5.5 BLOOD GAS, [id number] 21:38:00* Test Item Value Reference Range Comments PH ARTERIAL (BEAKER) (test egdc=894) 7.12 7.35-7.45 PCO2 ARTERIAL (BEAKER) (test sgpo=278) 41 mmHg 35-45 PO2 ARTERIAL (BEAKER) (test yvxs=629) 397 mmHg 80-90 O2 SATURATION ARTERIAL (BEAKER) (test fpvv=788) 99.7 % 96.0-97.0 HCO3 ARTERIAL (BEAKER) (test dvsb=464) 13 mmol/L 21-29 BASE EXCESS ARTERIAL (BEAKER) (test qnoi=169) -15.3 mmol/L -2.0-3.0 PATIENT TEMPERATURE (BEAKER) (test otng=0915) 35.0 C FIO2 (BEAKER) (test btax=9566) 80.0 % GLUCOSE-STAT [id number] 21:38:00* Test Item Value Reference Range Comments GLUCOSE RANDOM (BEAKER) (test cpvi=723) 179 mg/dL 70-110 HGB/HCT (H&H) - STAT [id number] 21:38:00* Test Item Value Reference Range Comments HEMOGLOBIN (BEAKER) (test wbih=918) 7.8 g/dL 13.0-16.8 HEMATOCRIT (BEAKER) (test ryao=668) 23.0 % 40.0-50.0 SODIUM NA-STAT [id number] 21:37:00* Test Item Value Reference Range Comments SODIUM (BEAKER) (test pwqk=150) 135 meq/L 135-148 POTASSIUM-STAT [id number] 21:37:00* Test Item Value Reference Range Comments POTASSIUM (BEAKER) (test pqud=652) 5.1 meq/L 3.6-5.5 RAD, CHEST, 1 VIEW, NON [id number] 21:14:00Reason for exam:->bleedingFINAL REPORT Chest one view. Clinical history: bleeding Comparison: Chest radiograph 02/02/2018, 5:44 PM Technique: A single frontal vie w of the chest was obtained. Findings:Support devices are unchanged. The patien t is status post median sternotomy and CABG.The cardiac silhouette is enlarged. The aorta is tortuous and atherosclerotic. There is diffuse airspace opacity in the left lower lobe, mildly increased in the interval, which may represent pneum onia and/or subsegmental atelectasis. There is linear atelectasis/scarring in th e left midlung and right upper lobe. Trace bilateral pleural effusions may be pr esent. There is no pneumothorax. Signed: Cathleen Hernandez MDReport Verified Date/Ti me: 02/02/2018 21:14:34 Reading Location: [address] Body Reading Room /HCT (H&H) - STAT [id number] 21:02:00* Test Item Value Reference Range Comments HEMOGLOBIN (BEAKER) (test vbxo=239) 7.8 g/dL 13.0-16.8 HEMATOCRIT (BEAKER) (test ggrw=593) 23.0 % 40.0-50.0 BLOOD GAS, [id number] 21:00:00* Test Item Value Reference Range Comments PH ARTERIAL (BEAKER) (test jhtq=169) 7.31 7.35-7.45 PCO2 ARTERIAL (BEAKER) (test wvli=676) 34 mmHg 35-45 PO2 ARTERIAL (BEAKER) (test ikgw=171) 141 mmHg 80-90 O2 SATURATION ARTERIAL (BEAKER) (test qgge=321) 98.8 % 96.0-97.0 HCO3 ARTERIAL (BEAKER) (test kguq=204) 17 mmol/L 21-29 BASE EXCESS ARTERIAL (BEAKER) (test twko=891) -8.8 mmol/L -2.0-3.0 PATIENT TEMPERATURE (BEAKER) (test htgo=6788) 34.4 C FIO2 (BEAKER) (test mbaz=2944) 60.0 % CBC (HEMOGRAM ONLY)2018-02-02 21:00:00* Test Item Value Reference Range Comments WHITE BLOOD CELL COUNT (BEAKER) (test oqln=505) 9.0 K/ L 3.5-10.5 RED BLOOD CELL COUNT (BEAKER) (test jeil=322) 2.52 M/ L 4.63-6.08 HEMOGLOBIN (BEAKER) (test qnvz=306) 7.4 GM/DL 13.7-17.5 HEMATOCRIT (BEAKER) (test ucpa=502) 23.4 % 40.1-51.0 MEAN CORPUSCULAR VOLUME (BEAKER) (test rwnf=248) 92.9 fL 79.0-92.2 MEAN CORPUSCULAR HEMOGLOBIN (BEAKER) (test qoxy=415) 29.4 pg 25.7-32.2 MEAN CORPUSCULAR HEMOGLOBIN CONC (BEAKER) (test guyp=401) 31.6 GM/DL 32.3-36.5 RED CELL DISTRIBUTION WIDTH (BEAKER) (test ktwx=683) 13.4 % 11.6-14.4 PLATELET COUNT (BEAKER) (test oohd=921) 175 K/CU MM 150-450 MEAN PLATELET VOLUME (BEAKER) (test fiig=727) 10.7 fL 9.4-12.4 NUCLEATED RED BLOOD CELLS (BEAKER) (test bswo=262) 0 /100 WBC 0-0 POTASSIUM-STAT [id number] 20:58:00* Test Item Value Reference Range Comments POTASSIUM (BEAKER) (test fnox=505) 4.7 meq/L 3.6-5.5 [id number] 20:47:00* Test Item Value Reference Range Comments PARTIAL THROMBOPLASTIN TIME (BEAKER) (test ldkc=561) 37.9 seconds 22.5-36.0 PROTHROMBIN TIME/[id number] 20:46:00* Test Item Value Reference Range Comments PROTIME (BEAKER) (test nmra=022) 18.7 seconds 11.7-14.7 INR (BEAKER) (test iyio=535) 1.6 <=5.9 RECOMMENDED COUMADIN/WARFARIN INR THERAPY RANGESSTANDARD DOSE: 2.0 - 3.0 Inclu arminda: PROPHYLAXIS for venous thrombosis, systemic embolization; TREATMENT for julián ous thrombosis and/or pulmonary embolus.HIGH RISK: Target INR is 2.5-3.5 for pat ients with mechanical heart valves.[id number] 20:31:00* Test Item Value Reference Range Comments FIBRINOGEN LEVEL (BEAKER) (test fndm=340) 178 mg/dl 225-434 BLOOD GAS, [id number] 20:30:00* Test Item Value Reference Range Comments PH ARTERIAL (BEAKER) (test slcj=324) 7.36 7.35-7.45 PCO2 ARTERIAL (BEAKER) (test icid=660) 31 mmHg 35-45 PO2 ARTERIAL (BEAKER) (test fmsd=894) 143 mmHg 80-90 O2 SATURATION ARTERIAL (BEAKER) (test nmkw=979) 98.9 % 96.0-97.0 HCO3 ARTERIAL (BEAKER) (test qbex=841) 17 mmol/L 21-29 BASE EXCESS ARTERIAL (BEAKER) (test yhzb=569) -8.0 mmol/L -2.0-3.0 PATIENT TEMPERATURE (BEAKER) (test kcoc=1024) 34.4 C FIO2 (BEAKER) (test qqsk=9983) 60.0 % HGB/HCT (H&H) - STAT [id number] 20:30:00* Test Item Value Reference Range Comments HEMOGLOBIN (BEAKER) (test oqkg=936) 8.8 g/dL 13.0-16.8 HEMATOCRIT (BEAKER) (test ynix=470) 26.0 % 40.0-50.0 BASIC METABOLIC [id number] 19:52:00* Test Item Value Reference Range Comments SODIUM (BEAKER) (test itnj=369) 138 meq/L 136-145 POTASSIUM (BEAKER) (test trth=339) 5.3 meq/L 3.5-5.1 CHLORIDE (BEAKER) (test tllr=602) 110 meq/L 98-107 CO2 (BEAKER) (test ygrj=723) 17 meq/L 22-29 BLOOD UREA NITROGEN (BEAKER) (test vgoc=073) 17 mg/dL 7-21 CREATININE (BEAKER) (test ciet=537) 0.93 mg/dL 0.57-1.25 GLUCOSE RANDOM (BEAKER) (test kefq=103) 168 mg/dL 70-105 CALCIUM (BEAKER) (test czht=561) 8.0 mg/dL 8.4-10.2 EGFR (BEAKER) (test ibkn=4185) 80 mL/min/1.73 sq m ESTIMATED GFR IS NOT ACCURATE CREATININE CLEARANCE IN PREDICTING GLOMERULAR FILTRATION RATE. ESTIMATED GFR IS NOT APPLICABLE FOR DIALYSIS PATIENTS. [id number] 19:46:00* Test Item Value Reference Range Comments PHOSPHORUS (BEAKER) (test fwvh=850) 3.9 mg/dL 2.3-4.7 [id number] 19:46:00* Test Item Value Reference Range Comments MAGNESIUM (BEAKER) (test wzik=584) 2.1 mg/dL 1.6-2.6 LACTIC ACID, ARTERIAL, WHOLE [id number] 19:44:00* Test Item Value Reference Range Comments LACTATE BLOOD ARTERIAL (2) (BEAKER) (test zptb=2270) 4.9 mmol/L 0.5-2.2 [id number] 19:39:00* Test Item Value Reference Range Comments PROTIME (BEAKER) (test bofq=182) 19.4 seconds 11.7-14.7 INR (BEAKER) (test fgrr=358) 1.6 <=5.9 PARTIAL THROMBOPLASTIN TIME (BEAKER) (test jnzi=689) 38.3 seconds 22.5-36.0 RECOMMENDED COUMADIN/WARFARIN INR THERAPY RANGESSTANDARD DOSE: 2.0 - 3.0 Inclu arminda: PROPHYLAXIS for venous thrombosis, systemic embolization; TREATMENT for julián ous thrombosis and/or pulmonary embolus.HIGH RISK: Target INR is 2.5-3.5 for pat ients with mechanical heart valves.[id number] 19:33:00* Test Item Value Reference Range Comments FIBRINOGEN LEVEL (BEAKER) (test mafk=248) 206 mg/dl 225-434 [id number] 19:33:00* Test Item Value Reference Range Comments PARTIAL THROMBOPLASTIN TIME (BEAKER) (test bvwv=723) 36.5 seconds 22.5-36.0 [id number] 19:32:00* Test Item Value Reference Range Comments MAGNESIUM (BEAKER) (test uewf=280) 2.0 mg/dL 1.6-2.6 Specimen slightly hemolyzed [id number] 19:32:00* Test Item Value Reference Range Comments PHOSPHORUS (BEAKER) (test rscz=656) 4.0 mg/dL 2.3-4.7 Specimen slightly hemolyzed BASIC METABOLIC [id number] 19:32:00* Test Item Value Reference Range Comments SODIUM (BEAKER) (test uydj=379) 140 meq/L 136-145 POTASSIUM (BEAKER) (test zxfn=800) 4.7 meq/L 3.5-5.1 Specimen slightly hemolyzed CHLORIDE (BEAKER) (test tkpp=013) 112 meq/L 98-107 CO2 (BEAKER) (test yxzp=056) 21 meq/L 22-29 BLOOD UREA NITROGEN (BEAKER) (test ptsl=688) 17 mg/dL 7-21 CREATININE (BEAKER) (test sjnh=110) 1.09 mg/dL 0.57-1.25 Specimen slightly hemolyzed GLUCOSE RANDOM (BEAKER) (test coiy=101) 146 mg/dL 70-105 CALCIUM (BEAKER) (test cqsh=177) 9.7 mg/dL 8.4-10.2 EGFR (BEAKER) (test kjmk=8414) 67 mL/min/1.73 sq m ESTIMATED GFR IS NOT ACCURATE CREATININE CLEARANCE IN PREDICTING GLOMERULAR FILTRATION RATE. ESTIMATED GFR IS NOT APPLICABLE FOR DIALYSIS PATIENTS. PROTHROMBIN TIME/[id number] 19:32:00* Test Item Value Reference Range Comments PROTIME (BEAKER) (test fwpn=353) 17.8 seconds 11.7-14.7 INR (BEAKER) (test fdmy=126) 1.5 <=5.9 RECOMMENDED COUMADIN/WARFARIN INR THERAPY RANGESSTANDARD DOSE: 2.0 - 3.0 Inclu arminda: PROPHYLAXIS for venous thrombosis, systemic embolization; TREATMENT for julián ous thrombosis and/or pulmonary embolus.HIGH RISK: Target INR is 2.5-3.5 for pat ients with mechanical heart valves.CBC (HEMOGRAM ONLY)2018-02-02 19:29:00* Test Item Value Reference Range Comments WHITE BLOOD CELL COUNT (BEAKER) (test xtvt=675) 12.2 K/ L 3.5-10.5 RED BLOOD CELL COUNT (BEAKER) (test qnno=330) 1.89 M/ L 4.63-6.08 HEMOGLOBIN (BEAKER) (test hujg=775) 6.1 GM/DL 13.7-17.5 HEMATOCRIT (BEAKER) (test mlxs=657) 17.8 % 40.1-51.0 MEAN CORPUSCULAR VOLUME (BEAKER) (test joph=909) 94.2 fL 79.0-92.2 MEAN CORPUSCULAR HEMOGLOBIN (BEAKER) (test lidq=691) 32.3 pg 25.7-32.2 MEAN CORPUSCULAR HEMOGLOBIN CONC (BEAKER) (test jryu=864) 34.3 GM/DL 32.3-36.5 RED CELL DISTRIBUTION WIDTH (BEAKER) (test gluz=593) 12.6 % 11.6-14.4 PLATELET COUNT (BEAKER) (test gjkh=838) 143 K/CU MM 150-450 MEAN PLATELET VOLUME (BEAKER) (test pdxs=135) 10.0 fL 9.4-12.4 NUCLEATED RED BLOOD CELLS (BEAKER) (test plli=141) 0 /100 WBC 0-0 LACTIC ACID, ARTERIAL, WHOLE [id number] 19:28:00* Test Item Value Reference Range Comments LACTATE BLOOD ARTERIAL (2) (BEAKER) (test snra=3652) 4.4 mmol/L 0.5-2.2 Specimen slightly hemolyzed BLOOD GAS, [id number] 19:26:00* Test Item Value Reference Range Comments PH ARTERIAL (BEAKER) (test ydmi=996) 7.45 7.35-7.45 PCO2 ARTERIAL (BEAKER) (test rvrq=038) 26 mmHg 35-45 PO2 ARTERIAL (BEAKER) (test ohzy=182) 256 mmHg 80-90 O2 SATURATION ARTERIAL (BEAKER) (test mzfw=588) 99.6 % 96.0-97.0 HCO3 ARTERIAL (BEAKER) (test bafd=301) 18 mmol/L 21-29 BASE EXCESS ARTERIAL (BEAKER) (test ifpr=517) -4.9 mmol/L -2.0-3.0 PATIENT TEMPERATURE (BEAKER) (test rybo=5885) 34.6 C FIO2 (BEAKER) (test uilf=4277) 60.0 % CALCIUM, [id number] 19:26:00* Test Item Value Reference Range Comments CALCIUM IONIZED (BEAKER) (test oiqx=881) 1.10 mmol/L 1.12-1.27 PH, BLOOD (BEAKER) (test zbss=0373) 7.45 OXYGEN SATURATION, [id number] 19:25:00* Test Item Value Reference Range Comments O2 SATURATION (MEASURED) (BEAKER) (test kjhb=7945) 40.5 % CBC W/PLT COUNT & AUTO [id number] 19:14:00* Test Item Value Reference Range Comments WHITE BLOOD CELL COUNT (BEAKER) (test znfj=400) 8.7 K/ L 3.5-10.5 RED BLOOD CELL COUNT (BEAKER) (test uemq=529) 2.19 M/ L 4.63-6.08 HEMOGLOBIN (BEAKER) (test fsdb=535) 6.9 GM/DL 13.7-17.5 HEMATOCRIT (BEAKER) (test qivt=159) 20.6 % 40.1-51.0 MEAN CORPUSCULAR VOLUME (BEAKER) (test yhyd=887) 94.1 fL 79.0-92.2 MEAN CORPUSCULAR HEMOGLOBIN (BEAKER) (test hmei=336) 31.5 pg 25.7-32.2 MEAN CORPUSCULAR HEMOGLOBIN CONC (BEAKER) (test sphr=073) 33.5 GM/DL 32.3-36.5 RED CELL DISTRIBUTION WIDTH (BEAKER) (test mjzx=190) 12.5 % 11.6-14.4 PLATELET COUNT (BEAKER) (test ykyn=928) 134 K/CU MM 150-450 MEAN PLATELET VOLUME (BEAKER) (test jbip=170) 10.2 fL 9.4-12.4 NUCLEATED RED BLOOD CELLS (BEAKER) (test kgfc=471) 0 /100 WBC 0-0 NEUTROPHILS RELATIVE PERCENT (BEAKER) (test pnei=812) 82 % LYMPHOCYTES RELATIVE PERCENT (BEAKER) (test hamr=470) 11 % MONOCYTES RELATIVE PERCENT (BEAKER) (test ombn=685) 6 % EOSINOPHILS RELATIVE PERCENT (BEAKER) (test vsuo=777) 0 % BASOPHILS RELATIVE PERCENT (BEAKER) (test nwrr=432) 0 % NEUTROPHILS ABSOLUTE COUNT (BEAKER) (test coft=872) 7.11 K/ L 1.78-5.38 LYMPHOCYTES ABSOLUTE COUNT (BEAKER) (test jwvg=195) 0.91 K/ L 1.32-3.57 MONOCYTES ABSOLUTE COUNT (BEAKER) (test vzul=382) 0.50 K/ L 0.30-0.82 EOSINOPHILS ABSOLUTE COUNT (BEAKER) (test sjdr=531) 0.03 K/ L 0.04-0.54 BASOPHILS ABSOLUTE COUNT (BEAKER) (test gpjs=129) 0.03 K/ L 0.01-0.08 IMMATURE GRANULOCYTES-RELATIVE PERCENT (BEAKER) (test dryz=6823) 1 % 0-1 BLOOD GAS, [id number] 17:35:00* Test Item Value Reference Range Comments PH ARTERIAL (BEAKER) (test hsss=931) 7.44 7.35-7.45 PCO2 ARTERIAL (BEAKER) (test eboh=604) 31 mmHg 35-45 PO2 ARTERIAL (BEAKER) (test lyjm=627) 218 mmHg 80-90 O2 SATURATION ARTERIAL (BEAKER) (test jltj=807) 99.5 % 96.0-97.0 HCO3 ARTERIAL (BEAKER) (test bhts=902) 21 mmol/L 21-29 BASE EXCESS ARTERIAL (BEAKER) (test fqdn=089) -3.0 mmol/L -2.0-3.0 PATIENT TEMPERATURE (BEAKER) (test ivev=4331) 35.7 C FIO2 (BEAKER) (test glhj=0487) 60.0 % CALCIUM, [id number] 17:34:00* Test Item Value Reference Range Comments CALCIUM IONIZED (BEAKER) (test dtuq=501) 1.24 mmol/L 1.12-1.27 PH, BLOOD (BEAKER) (test ihkp=0770) 7.44 HEMOGLOBIN-STAT [id number] 17:33:00* Test Item Value Reference Range Comments HEMOGLOBIN (BEAKER) (test gnsc=142) 8.5 GM/DL 13.0-16.8 POTASSIUM-STAT [id number] 17:33:00* Test Item Value Reference Range Comments POTASSIUM (BEAKER) (test gqyu=445) 4.7 meq/L 3.6-5.5 SODIUM NA-STAT [id number] 17:33:00* Test Item Value Reference Range Comments SODIUM (BEAKER) (test pphg=673) 136 meq/L 135-148 GLUCOSE-STAT [id number] 17:33:00* Test Item Value Reference Range Comments GLUCOSE RANDOM (BEAKER) (test ejuu=741) 142 mg/dL 70-110 HGB/HCT (H&H) - STAT [id number] 17:32:00* Test Item Value Reference Range Comments HEMOGLOBIN (BEAKER) (test xrgy=956) 8.5 GM/DL 13.0-16.8 HEMATOCRIT (BEAKER) (test rivh=437) 25.0 % 40.0-50.0 OXYGEN SATURATION, [id number] 17:31:00* Test Item Value Reference Range Comments O2 SATURATION (MEASURED) (BEAKER) (test rhcw=5022) 49.4 % THROMBOELASTOGRAPH (TEG)2018-02-02 16:58:00* Test Item Value Reference Range Comments TEG ACTIVATED CLOTTING TIME (BEAKER) (test zczc=6335) 7.7 minutes 4.0-7.0 TEG FIBRINOGEN ACTIVITY (BEAKER) (test etew=1344) 62.6 degrees 61.0-73.0 TEG PLT. AGGREGATION (BEAKER) (test prgl=9244) 49.3 MM 55.0-65.0 TEG FIBRINOLYSIS (BEAKER) (test fzcj=6035) 0.0 % 0.0-5.0 TGH ACTIVATED CLOTTING TIME (BEAKER) (test bcjv=2388) 7.6 minutes 4.0-7.0 TGH FIBRINOGEN ACTIVITY (BEAKER) (test azbh=7194) 62.5 degrees 61.0-73.0 TGH PLT. AGGREGATION (BEAKER) (test jfmf=3626) 47.2 MM 55.0-65.0 TGH FIBRINOLYSIS (BEAKER) (test bayy=4414) 0.0 % 0.0-5.0 CALCIUM, [id number] 16:24:00* Test Item Value Reference Range Comments CALCIUM IONIZED (BEAKER) (test veon=133) 1.41 mmol/L 1.12-1.27 PH, BLOOD (BEAKER) (test mkxd=9799) 7.30 BLOOD GAS, [id number] 16:24:00* Test Item Value Reference Range Comments PH ARTERIAL (BEAKER) (test wzio=395) 7.32 7.35-7.45 PCO2 ARTERIAL (BEAKER) (test zzvy=693) 42 mmHg 35-45 PO2 ARTERIAL (BEAKER) (test niac=010) 351 mmHg 80-90 O2 SATURATION ARTERIAL (BEAKER) (test rkgb=869) 99.7 % 96.0-97.0 HCO3 ARTERIAL (BEAKER) (test esdc=862) 22 mmol/L 21-29 BASE EXCESS ARTERIAL (BEAKER) (test idba=936) -4.5 mmol/L -2.0-3.0 PATIENT TEMPERATURE (BEAKER) (test shlj=0730) 35.0 C FIO2 (BEAKER) (test olkl=0592) 100.0 % GLUCOSE-STAT [id number] 16:24:00* Test Item Value Reference Range Comments GLUCOSE RANDOM (BEAKER) (test upsz=963) 182 mg/dL 70-110 HGB/HCT (H&H) - STAT [id number] 16:24:00* Test Item Value Reference Range Comments HEMOGLOBIN (BEAKER) (test ignk=336) 10.9 g/dL 13.0-16.8 HEMATOCRIT (BEAKER) (test hbcf=750) 32.0 % 40.0-50.0 SODIUM NA-STAT [id number] 16:22:00* Test Item Value Reference Range Comments SODIUM (BEAKER) (test qdrk=208) 136 meq/L 135-148 POTASSIUM-STAT [id number] 16:22:00* Test Item Value Reference Range Comments POTASSIUM (BEAKER) (test cfdr=241) 4.2 meq/L 3.6-5.5 [id number] 16:01:00* Test Item Value Reference Range Comments FIBRINOGEN LEVEL (BEAKER) (test sxal=627) 167 mg/dl 225-434 [id number] 16:01:00* Test Item Value Reference Range Comments PARTIAL THROMBOPLASTIN TIME (BEAKER) (test wggz=971) 38.8 seconds 22.5-36.0 PROTHROMBIN TIME/[id number] 16:00:00* Test Item Value Reference Range Comments PROTIME (BEAKER) (test jwzc=704) 21.5 seconds 11.7-14.7 INR (BEAKER) (test wlme=540) 1.9 <=5.9 RECOMMENDED COUMADIN/WARFARIN INR THERAPY RANGESSTANDARD DOSE: 2.0 - 3.0 Inclu arminda: PROPHYLAXIS for venous thrombosis, systemic embolization; TREATMENT for julián ous thrombosis and/or pulmonary embolus.HIGH RISK: Target INR is 2.5-3.5 for pat ients with mechanical heart valves.[id number] 15:55:00* Test Item Value Reference Range Comments ACTIVATED CLOTTING TIME (BEAKER) (test vqij=129) 120 sec TESTED AT [place] [address] [id number] 15:55:00* Test Item Value Reference Range Comments ACTIVATED CLOTTING TIME (BEAKER) (test ighj=788) 499 sec TESTED AT [place] [address] [id number] 15:55:00* Test Item Value Reference Range Comments ACTIVATED CLOTTING TIME (BEAKER) (test cmfe=032) 566 sec TESTED AT [place] [id number] 15:55:00* Test Item Value Reference Range Comments ACTIVATED CLOTTING TIME (BEAKER) (test zylw=299) 632 sec TESTED AT [place] [id number] 15:55:00* Test Item Value Reference Range Comments ACTIVATED CLOTTING TIME (BEAKER) (test zkma=600) 598 sec TESTED AT [place] [id number] 15:55:00* Test Item Value Reference Range Comments ACTIVATED CLOTTING TIME (BEAKER) (test ztvp=462) 566 sec TESTED AT [place] [address] PLATELET [id number] 15:51:00* Test Item Value Reference Range Comments PLATELET COUNT (BEAKER) (test oplq=873) 111 K/CU MM 150-450 SODIUM NA-STAT [id number] 15:49:00* Test Item Value Reference Range Comments SODIUM (BEAKER) (test umjj=955) 135 meq/L 135-148 POTASSIUM-STAT [id number] 15:49:00* Test Item Value Reference Range Comments POTASSIUM (BEAKER) (test foiw=630) 4.6 meq/L 3.6-5.5 BLOOD GAS, [id number] 15:49:00* Test Item Value Reference Range Comments PH ARTERIAL (BEAKER) (test kzww=958) 7.36 7.35-7.45 PCO2 ARTERIAL (BEAKER) (test wyxw=505) 38 mmHg 35-45 PO2 ARTERIAL (BEAKER) (test rfyd=247) 214 mmHg 80-90 O2 SATURATION ARTERIAL (BEAKER) (test suhp=562) 99.4 % 96.0-97.0 HCO3 ARTERIAL (BEAKER) (test zkmc=083) 22 mmol/L 21-29 BASE EXCESS ARTERIAL (BEAKER) (test sffm=720) -3.8 mmol/L -2.0-3.0 PATIENT TEMPERATURE (BEAKER) (test sjmg=6247) 35.6 C FIO2 (BEAKER) (test xczl=9462) 100.0 % GLUCOSE-STAT [id number] 15:49:00* Test Item Value Reference Range Comments GLUCOSE RANDOM (BEAKER) (test dicl=805) 184 mg/dL 70-110 HGB/HCT (H&H) - STAT [id number] 15:49:00* Test Item Value Reference Range Comments HEMOGLOBIN (BEAKER) (test yjsx=246) 9.3 g/dL 13.0-16.8 HEMATOCRIT (BEAKER) (test jwsv=835) 27.0 % 40.0-50.0 CALCIUM, [id number] 15:48:00* Test Item Value Reference Range Comments CALCIUM IONIZED (BEAKER) (test fgcp=757) 1.34 mmol/L 1.12-1.27 PH, BLOOD (BEAKER) (test cblk=6188) 7.36 BLOOD GAS, [id number] 15:23:00* Test Item Value Reference Range Comments PH ARTERIAL (BEAKER) (test wtpo=268) 7.41 7.35-7.45 PCO2 ARTERIAL (BEAKER) (test yyfz=471) 37 mmHg 35-45 PO2 ARTERIAL (BEAKER) (test xwly=608) 280 mmHg 80-90 O2 SATURATION ARTERIAL (BEAKER) (test ngpr=274) 99.7 % 96.0-97.0 HCO3 ARTERIAL (BEAKER) (test vjat=882) 24 mmol/L 21-29 BASE EXCESS ARTERIAL (BEAKER) (test zumn=515) -1.5 mmol/L -2.0-3.0 PATIENT TEMPERATURE (BEAKER) (test dygb=2071) 35.0 C FIO2 (BEAKER) (test pgoh=1385) 85.0 % SODIUM NA-STAT [id number] 15:23:00* Test Item Value Reference Range Comments SODIUM (BEAKER) (test bjfe=147) 134 meq/L 135-148 POTASSIUM-STAT [id number] 15:23:00* Test Item Value Reference Range Comments POTASSIUM (BEAKER) (test xtni=757) 5.7 meq/L 3.6-5.5 GLUCOSE-STAT [id number] 15:23:00* Test Item Value Reference Range Comments GLUCOSE RANDOM (BEAKER) (test mhbq=506) 199 mg/dL 70-110 HGB/HCT (H&H) - STAT [id number] 15:23:00* Test Item Value Reference Range Comments HEMOGLOBIN (BEAKER) (test mgxw=966) 9.1 g/dL 13.0-16.8 HEMATOCRIT (BEAKER) (test xelz=825) 27.0 % 40.0-50.0 POTASSIUM-STAT [id number] 15:01:00* Test Item Value Reference Range Comments POTASSIUM (BEAKER) (test pihm=594) 5.5 meq/L 3.6-5.5 BLOOD GAS, [id number] 15:01:00* Test Item Value Reference Range Comments PH ARTERIAL (BEAKER) (test lrhu=627) 7.36 7.35-7.45 PCO2 ARTERIAL (BEAKER) (test okfk=626) 41 mmHg 35-45 PO2 ARTERIAL (BEAKER) (test ehjl=306) 357 mmHg 80-90 O2 SATURATION ARTERIAL (BEAKER) (test vwmy=899) 99.8 % 96.0-97.0 HCO3 ARTERIAL (BEAKER) (test ooxo=437) 24 mmol/L 21-29 BASE EXCESS ARTERIAL (BEAKER) (test ehew=431) -2.4 mmol/L -2.0-3.0 PATIENT TEMPERATURE (BEAKER) (test zxxx=0110) 34.2 C FIO2 (BEAKER) (test wrmn=9705) 80.0 % SODIUM NA-STAT [id number] 15:01:00* Test Item Value Reference Range Comments SODIUM (BEAKER) (test qybm=432) 134 meq/L 135-148 GLUCOSE-STAT [id number] 15:01:00* Test Item Value Reference Range Comments GLUCOSE RANDOM (BEAKER) (test ctjr=456) 216 mg/dL 70-110 HGB/HCT (H&H) - STAT [id number] 15:01:00* Test Item Value Reference Range Comments HEMOGLOBIN (BEAKER) (test llqd=595) 8.6 g/dL 13.0-16.8 HEMATOCRIT (BEAKER) (test uuks=178) 25.0 % 40.0-50.0 BLOOD GAS, [id number] 14:38:00* Test Item Value Reference Range Comments PH ARTERIAL (BEAKER) (test vwbd=879) 7.40 7.35-7.45 PCO2 ARTERIAL (BEAKER) (test wngm=222) 33 mmHg 35-45 PO2 ARTERIAL (BEAKER) (test rima=922) 276 mmHg 80-90 O2 SATURATION ARTERIAL (BEAKER) (test tgen=495) 99.6 % 96.0-97.0 HCO3 ARTERIAL (BEAKER) (test iard=925) 22 mmol/L 21-29 BASE EXCESS ARTERIAL (BEAKER) (test neyg=211) -4.7 mmol/L -2.0-3.0 PATIENT TEMPERATURE (BEAKER) (test bdlp=1865) 27.8 C FIO2 (BEAKER) (test jufa=8137) 65.0 % SODIUM NA-STAT [id number] 14:38:00* Test Item Value Reference Range Comments SODIUM (BEAKER) (test dbbi=533) 133 meq/L 135-148 POTASSIUM-STAT [id number] 14:38:00* Test Item Value Reference Range Comments POTASSIUM (BEAKER) (test apfz=836) 5.8 meq/L 3.6-5.5 GLUCOSE-STAT [id number] 14:38:00* Test Item Value Reference Range Comments GLUCOSE RANDOM (BEAKER) (test niet=590) 223 mg/dL 70-110 HGB/HCT (H&H) - STAT [id number] 14:38:00* Test Item Value Reference Range Comments HEMOGLOBIN (BEAKER) (test lsjn=188) 9.2 g/dL 13.0-16.8 HEMATOCRIT (BEAKER) (test lcnx=626) 27.0 % 40.0-50.0 BLOOD GAS, [id number] 14:09:00* Test Item Value Reference Range Comments PH VENOUS (BEAKER) (test wpnv=888) 7.35 7.32-7.42 PCO2 VENOUS (BEAKER) (test cfuw=351) 37 mmHg 41-51 PO2 VENOUS (BEAKER) (test miqh=915) 44 mmHg 25-40 O2 SATURATION VENOUS (BEAKER) (test bhrb=874) 92.9 % 40.0-70.0 HCO3 VENOUS (BEAKER) (test nzxn=534) 22 mmol/L 21-29 BASE EXCESS VENOUS (BEAKER) (test tqmk=357) -5.2 mmol/L -2.0-3.0 PATIENT TEMPERATURE (BEAKER) (test taby=2100) 28.2 C FIO2 (BEAKER) (test ralo=7259) 80.0 % BLOOD GAS, [id number] 14:06:00* Test Item Value Reference Range Comments PH ARTERIAL (BEAKER) (test nmnx=450) 7.39 7.35-7.45 PCO2 ARTERIAL (BEAKER) (test otlz=242) 33 mmHg 35-45 PO2 ARTERIAL (BEAKER) (test hkmi=211) 362 mmHg 80-90 O2 SATURATION ARTERIAL (BEAKER) (test xawb=373) 99.8 % 96.0-97.0 HCO3 ARTERIAL (BEAKER) (test wsui=058) 21 mmol/L 21-29 BASE EXCESS ARTERIAL (BEAKER) (test snmm=747) -5.6 mmol/L -2.0-3.0 PATIENT TEMPERATURE (BEAKER) (test imzl=7470) 28.3 C FIO2 (BEAKER) (test hqmi=4648) 80.0 % SODIUM NA-STAT [id number] 14:06:00* Test Item Value Reference Range Comments SODIUM (BEAKER) (test nyjb=914) 133 meq/L 135-148 GLUCOSE-STAT [id number] 14:06:00* Test Item Value Reference Range Comments GLUCOSE RANDOM (BEAKER) (test cxys=642) 154 mg/dL 70-110 HGB/HCT (H&H) - STAT [id number] 14:06:00* Test Item Value Reference Range Comments HEMOGLOBIN (BEAKER) (test etcp=237) 10.0 g/dL 13.0-16.8 HEMATOCRIT (BEAKER) (test pipy=199) 29.0 % 40.0-50.0 POTASSIUM-STAT [id number] 14:05:00* Test Item Value Reference Range Comments POTASSIUM (BEAKER) (test sayg=339) 3.8 meq/L 3.6-5.5 SODIUM NA-STAT [id number] 13:12:00* Test Item Value Reference Range Comments SODIUM (BEAKER) (test vvks=212) 135 meq/L 135-148 POTASSIUM-STAT [id number] 13:12:00* Test Item Value Reference Range Comments POTASSIUM (BEAKER) (test kysj=475) 3.9 meq/L 3.6-5.5 BLOOD GAS, [id number] 13:12:00* Test Item Value Reference Range Comments PH ARTERIAL (BEAKER) (test zbos=235) 7.38 7.35-7.45 PCO2 ARTERIAL (BEAKER) (test tjyt=419) 39 mmHg 35-45 PO2 ARTERIAL (BEAKER) (test eule=680) 73 mmHg 80-90 O2 SATURATION ARTERIAL (BEAKER) (test ezkd=367) 95.2 % 96.0-97.0 HCO3 ARTERIAL (BEAKER) (test anii=829) 22 mmol/L 21-29 BASE EXCESS ARTERIAL (BEAKER) (test dcbd=140) -2.8 mmol/L -2.0-3.0 PATIENT TEMPERATURE (BEAKER) (test dxcq=0056) 36.0 C FIO2 (BEAKER) (test esgj=9860) 56.0 % GLUCOSE-STAT [id number] 13:12:00* Test Item Value Reference Range Comments GLUCOSE RANDOM (BEAKER) (test tddo=580) 124 mg/dL 70-110 HGB/HCT (H&H) - STAT [id number] 13:12:00* Test Item Value Reference Range Comments HEMOGLOBIN (BEAKER) (test mjeq=674) 13.2 g/dL 13.0-16.8 HEMATOCRIT (BEAKER) (test kiwi=258) 39.0 % 40.0-50.0 CT, CTA, [id number] 16:54:00[facility] HospitalAddendum BeginsREPORT STATUS:A Addendum: I agree with the previously described non vascular findings. Signed: Tanvi Weber MDReport Verif ied Date/Time: 01/21/2018 16:54:58 Reading Location: [place] [address] Angio Body Key schmidt RoomAddendum EndsFINAL REPORT CT angiography of the thoracic aorta, 21 January 2018 INDICATION: This is a 67 year old male with c oronary artery disease, presents for preprocedure CABG assessment. This study i s performed in an attempt to avoid an invasive procedure. TECHNIQUE: Spiral acqu isition during intravenous contrast administration using a Danilo multidetector CT scanner. Images were obtained before and during the dynamic passage of intra venous contrast material. Multi-planar 3-D volume-rendering reconstruction was performed using an independent workstation interactively by the interpreting inkhil sousa as well as the 3-D specialist for optimal visualisation of the thoracic a marcelo and its proximal branches. Please refer to the contrast sheet scanned in [facility] system for the amount and route of contrast given. This exam was performe d according to our departmental dose-optimisation programme, which includes auto mated exposure control, adjustment of the mA and/or kV according to patient size and/or use of iterative reconstruction technique. Dose modulation, iterative re construction, and/or weight based adjustment of the mA/kV was utilized to reduce the radiation dose to as low as reasonably achievable. FINDINGS: VASCULAR: The pericardium has normal appearance. No pericardial effusion is identified. The c entral pulmonary artery is normal in calibre. The cardiac chambers demonstrate n ormal atrioventricular and ventriculoarterial concordance, and systemic and pulm onary venous return. The left ventricle is normal in size. Mild left atrial prom inence is identified. Coronary artery origins are normal. Coronary artery calcif ication is seen in the LAD and RCA territory. This likely stent identified in th e proximal LAD. Correlate with operative report. Patient is post coronary arter y bypass surgery. The left internal mammary graft is identified. The closest dis tance of the ANIA graft to the sternum is at the left sternoclavicular joint, ania ge 41. At this level it is at least 4 cm from the midline. At least two bypass g rafts identified that is occluded, and the stomach is located at image 60 and 67 of the anterior aspect of the ascending thoracic aorta. The left brachiocephalic vein is approximately 6 to 7 mm behind the sternum at image 43. The free wall of the right ventricle, at image 109, is approximately 4 to 5 mm behind the sternal wire. The thoracic aorta is normal in course, contour, and calibre. Only tiny amount of calcification seen in the aortic root, and in the posterior aspect of the ascending thoracic aorta. The transverse arch and descending thoracic aorta has mild to moderate noncalcific atherosclerosis identified with scattered ca lcific atherosclerosis. In the anterior aspect of the distal descending thoracic aorta, the thickness of the noncalcific atheroma, at image 98, is up to 7 to 8 mm. There is no evidence of acute aortic pathology, specifically, there is no di ssection, intramural hematoma, or contained rupture. The arch vessel branching pattern is normal and the visualised portion of the arch vessels are widely madera nt. Only minimal calcification is identified in the proximal left subclavian ar peter. The left subclavian artery is somewhat tortuous. The right subclavian silviano ry only has minimal calcification seen proximally. Both subclavian arteries are widely patent. The left and the right vertebral arteries arising from the respec tive left and right subclavian artery and thereafter equaling size. Quantitative dimensions of the aorta are as follows: 3.3 cm at the sinuses of Valsalva (the sino-tubular junction is preserved); 2.7 cm at the proximal ascending thoracic a marcelo; 3.1 cm at the mid ascending aorta; 2.6 cm at the distal ascending aorta; 2.8 cm at the mid transverse arch; 2.9 cm at the proximal descending aorta; 2.5 cm at the mid descending aorta; 2.2 cm at the diaphragmatic hiatus. NON-VASCULA R: The visualised thyroid gland appears unremarkable. The chest wall and mediast inum appear normal. Patient is post median sternotomy. The ascending thoracic ao rta is at a distance posterior to the sternum, and the minimum distance is at le ast 1.5 cm, at image 57. In the lung windows, no obvious endobronchial lesion is seen, and no pleural effusion is identified. Dependent changes are seen in the lung bases. Some subsegmental atelectatic changes are seen. Overall, no suspicio us pulmonary nodule is identified. Limited images of the upper abdomen reveals n o gross abnormality. No acute bony pathology is seen. Some degenerative changes is noted. CONCLUSIONS: 1. The thoracic aorta is normal in course, contour, and calibre. Only minimal calcific atherosclerosis seen in the aortic root/ascending thoracic aorta. There is noncalcific atherosclerosis seen in the descending tho racic aorta as described above. There is no evidence of acute aortic patholog y, specifically, there is no dissection, intramural hematoma, or contained ruptu re. Quantitative dimension of the thoracic aorta are as described above. 2. Coronary atherosclerosis. Patient is post coronary artery bypass surgery. Only t he left internal mammary bypass graft is patent. The left and right subclavian a rteries are widely patent. 3. The central pulmonary artery is normal in calibre . No evidence of central pulmonary artery embolism. 4. Other findings as descri bed above. 5. An addendum will be dictated regarding the non-vascular findings by the [employer] Radiologist. Signed: Jairo Patel MDReport Verified Date/T daniel: 01/21/2018 16:24:43 Reading Location: [place] [id number] Cardiology MRI Elec tronically signed by: TANVI WEBER M.D. on 01/21/2018 04:54 PM PLATELET AGGREGATION: FUNCTION [id number] 16:32:00* Test Item Value Reference Range Comments WEAK ADP RESULT(BEAKER) (test myfo=1399) 43 % 60-91 PLATELET FUNCTION SCREEN INTERP (BEAKER) (test pnlv=7346) 40-49% indicates moderate platelet dysfunction [id number] (BEAKER) (test gwzz=9488) Edith Armenta MD (electronic signature) PLATELET COUNT AGG ([employer]) (test jsaa=3069) 268 K/CU MM 150-450 Platelet Function Screen results may be falsely low with platelet counts< 100,000/cu mm.HEMOGLOBIN [id number] 15:11:00* Test Item Value Reference Range Comments HEMOGLOBIN A1C (BEAKER) (test rnvq=827) 6.4 % 4.3-6.1 COMPREHENSIVE METABOLIC [id number] 13:17:00* Test Item Value Reference Range Comments TOTAL PROTEIN (BEAKER) (test bxjs=966) 8.5 gm/dL 6.0-8.3 ALBUMIN (BEAKER) (test rbjn=8309) 4.5 g/dL 3.5-5.0 ALKALINE PHOSPHATASE (BEAKER) (test adtw=642) 102 U/L 40-150 BILIRUBIN TOTAL (BEAKER) (test chjr=082) 0.6 mg/dL 0.2-1.2 SODIUM (BEAKER) (test osep=858) 136 meq/L 136-145 POTASSIUM (BEAKER) (test wnfy=652) 4.3 meq/L 3.5-5.1 CHLORIDE (BEAKER) (test fwib=022) 104 meq/L 98-107 CO2 (BEAKER) (test iuje=820) 23 meq/L 22-29 BLOOD UREA NITROGEN (BEAKER) (test qltq=469) 15 mg/dL 7-21 CREATININE (BEAKER) (test prxi=215) 1.25 mg/dL 0.57-1.25 GLUCOSE RANDOM (BEAKER) (test whrg=064) 115 mg/dL 70-105 CALCIUM (BEAKER) (test wmjs=548) 10.1 mg/dL 8.4-10.2 AST (SGOT) (BEAKER) (test fltm=311) 19 U/L 5-34 ALT (SGPT) (BEAKER) (test jvxt=422) 25 U/L 6-55 EGFR (BEAKER) (test yemw=6938) 57 mL/min/1.73 sq m ESTIMATED GFR IS NOT ACCURATE CREATININE CLEARANCE IN PREDICTING GLOMERULAR FILTRATION RATE. ESTIMATED GFR IS NOT APPLICABLE FOR DIALYSIS PATIENTS. [id number] 13:06:00* Test Item Value Reference Range Comments PARTIAL THROMBOPLASTIN TIME (BEAKER) (test ossb=201) 35.1 seconds 22.5-36.0 PROTHROMBIN TIME/[id number] 13:05:00* Test Item Value Reference Range Comments PROTIME (BEAKER) (test vnjo=734) 14.7 seconds 11.7-14.7 INR (BEAKER) (test obnv=945) 1.2 <=5.9 RECOMMENDED COUMADIN/WARFARIN INR THERAPY RANGESSTANDARD DOSE: 2.0 - 3.0 Inclu arminda: PROPHYLAXIS for venous thrombosis, systemic embolization; TREATMENT for julián ous thrombosis and/or pulmonary embolus.HIGH RISK: Target INR is 2.5-3.5 for pat ients with mechanical heart valves.BASIC METABOLIC [id number] 12:03:00* Test Item Value Reference Range Comments SODIUM (BEAKER) (test yevc=890) 137 meq/L 136-145 POTASSIUM (BEAKER) (test ppxg=460) 4.0 meq/L 3.5-5.1 CHLORIDE (BEAKER) (test jzyr=872) 103 meq/L 98-107 CO2 (BEAKER) (test tazv=373) 23 meq/L 22-29 BLOOD UREA NITROGEN (BEAKER) (test cemg=741) 20 mg/dL 7-21 CREATININE (BEAKER) (test mneq=016) 1.24 mg/dL 0.57-1.25 GLUCOSE RANDOM (BEAKER) (test puba=162) 122 mg/dL 70-105 CALCIUM (BEAKER) (test rchg=041) 10.2 mg/dL 8.4-10.2 EGFR (BEAKER) (test wisg=1940) 58 mL/min/1.73 sq m ESTIMATED GFR IS NOT ACCURATE CREATININE CLEARANCE IN PREDICTING GLOMERULAR FILTRATION RATE. ESTIMATED GFR IS NOT APPLICABLE FOR DIALYSIS PATIENTS. CBC W/PLT COUNT & AUTO [id number] 10:41:00* Test Item Value Reference Range Comments WHITE BLOOD CELL COUNT (BEAKER) (test thfl=134) 6.1 K/ L 3.5-10.5 RED BLOOD CELL COUNT (BEAKER) (test mngz=331) 4.98 M/ L 4.63-6.08 HEMOGLOBIN (BEAKER) (test qsxz=428) 16.1 GM/DL 13.7-17.5 HEMATOCRIT (BEAKER) (test wlev=383) 45.8 % 40.1-51.0 MEAN CORPUSCULAR VOLUME (BEAKER) (test uurp=740) 92.0 fL 79.0-92.2 MEAN CORPUSCULAR HEMOGLOBIN (BEAKER) (test tgkg=793) 32.3 pg 25.7-32.2 MEAN CORPUSCULAR HEMOGLOBIN CONC (BEAKER) (test sbwt=728) 35.2 GM/DL 32.3-36.5 RED CELL DISTRIBUTION WIDTH (BEAKER) (test jays=918) 12.4 % 11.6-14.4 PLATELET COUNT (BEAKER) (test zoft=528) 212 K/CU MM 150-450 MEAN PLATELET VOLUME (BEAKER) (test gunt=239) 9.5 fL 9.4-12.4 NUCLEATED RED BLOOD CELLS (BEAKER) (test oacl=239) 0 /100 WBC 0-0 NEUTROPHILS RELATIVE PERCENT (BEAKER) (test epit=771) 61 % LYMPHOCYTES RELATIVE PERCENT (BEAKER) (test ktpp=050) 27 % MONOCYTES RELATIVE PERCENT (BEAKER) (test rgaq=486) 7 % EOSINOPHILS RELATIVE PERCENT (BEAKER) (test skqc=270) 4 % BASOPHILS RELATIVE PERCENT (BEAKER) (test iuhq=169) 1 % NEUTROPHILS ABSOLUTE COUNT (BEAKER) (test bnam=316) 3.71 K/ L 1.78-5.38 LYMPHOCYTES ABSOLUTE COUNT (BEAKER) (test tveq=656) 1.66 K/ L 1.32-3.57 MONOCYTES ABSOLUTE COUNT (BEAKER) (test yknd=852) 0.44 K/ L 0.30-0.82 EOSINOPHILS ABSOLUTE COUNT (BEAKER) (test gsjo=866) 0.24 K/ L 0.04-0.54 BASOPHILS ABSOLUTE COUNT (BEAKER) (test ihte=705) 0.07 K/ L 0.01-0.08 IMMATURE GRANULOCYTES-RELATIVE PERCENT (BEAKER) (test psqm=5372) 0 % 0-1
== END 2018-06-28 22:52 | disposition short-term general hospital (02) ==
LOC: ER 21:06
DX: R26.2 Difficulty in walking, not elsewhere classified (principal)

== ENCOUNTER 2021-04-25 06:51 | Emergency (ER) | payer MEDICARE, OTHER ==
[~2021-04-25] VITALS: Ht 177.8 cm; Wt 90.7 kg
[2021-04-25] MEDS ORDERED: Morphine 4mg Syringe 4 MG/ML INJ IV STA (07:11)
[2021-04-25] MEDS ORDERED: ONDANSETRON HCL INJ 2MG/ML 2ML 2 MG/ML VIAL IV STA (07:11)
[2021-04-25 07:30] LABS: BASOPHILS % 0.4 % (0.0-1.0); EOSINOPHILS # (AUTO) 0.1 (0.0-0.4); EOSINOPHILS % 1.4 % (0.0-6.0); HEMATOCRIT 39.6 % (38.2-49.6); HEMOGLOBIN 13.6 g/dL (14.0-18.0); LYMPHOCYTES # (AUTO) 0.9 (1.0-3.2); LYMPHOCYTES % 11.2 % (18.0-39.1); MEAN CORPUSCULAR HEMOGLOBIN 30.5 pg (28-32); MEAN CORPUSCULAR HGB CONC 34.3 g/dL (31-35); MEAN CORPUSCULAR VOLUME 88.8 fL (81-99); MONOCYTES # (AUTO) 0.6 (0.2-0.8); MONOCYTES % 7.3 % (4.4-11.3); NEUTROPHILS # (AUTO) 6.1 (2.1-6.9); NEUTROPHILS % 79.4 % (38.7-80.0); PLATELET COUNT 219 x10e3/uL (140-360); RED BLOOD COUNT 4.46 x10e6/uL (4.3-5.7)
[2021-04-25 08:05] LABS: ALBUMIN 3.5 g/dL (3.5-5.0); ALBUMIN/GLOBULIN RATIO 0.8 (0.8-2.0); ANION GAP 16.3 mmol/L (8-16); CALCIUM 9.1 mg/dL (8.4-10.2); CREATININE, SERUM 1.1 mg/dL (0.72-1.25); POTASSIUM 3.3 mmol/L (3.5-5.1)
[2021-04-25 08:12] LABS: CREATINE KINASE MB 0.9 ng/mL (0-5.0)
[2021-04-25] MEDS ORDERED: SODIUM CHLORIDE 0.9% 1000ML 1,000 ML IV STA (08:49)
[2021-04-25] MEDS ORDERED: KETOROLAC TROMETHAMINE 30 MG/ML VIAL IV STA ×2 (08:51→10:13)
[2021-04-25] MEDS ORDERED: DIAZEPAM INJ 5 MG/ML 2 ML IV STA (10:13)
[2021-04-25] MEDS ORDERED: VALIUM2 MG PO (11:07)
== END 2021-04-25 11:46 | disposition home or self-care (01) ==
LOC: ER 06:55
DX: M47.812 Spondylosis without myelopathy or radiculopathy, cervical region (principal); U07.1 COVID-19; R51.9 Headache, unspecified
CPT/HCPCS: 36415; 70450; 72125; 80053; 82550; 82553; 84484; 85025; 93005; J1885; J2270; J2405; J7030; U0002

== ENCOUNTER 2024-04-06 19:57 | Inpatient (IN) | payer MEDICARE ==
[~2024-04-06] VITALS: Ht 170.2 cm; Wt 66.7 kg
[~2024-04-06 19:57] MED LIST: CEFDINIR300 MG PO; VALIUM2 MG PO
[2024-04-06 20:31] VITALS: TEMP 98.8
[2024-04-06 21:02] LABS: BASOPHILS % 0.2 % (0.0-1.0); HEMATOCRIT 38.5 % (38.2-49.6); HEMOGLOBIN 12.2 g/dL (14.0-18.0); LYMPHOCYTES # (AUTO) 0.6 (1.0-3.2); LYMPHOCYTES % 7.6 % (18.0-39.1); MEAN CORPUSCULAR HEMOGLOBIN 33.2 pg (28-32); MEAN CORPUSCULAR HGB CONC 31.7 g/dL (31-35); MEAN CORPUSCULAR VOLUME 104.6 fL (81-99); MONOCYTES # (AUTO) 0.4 (0.2-0.8); MONOCYTES % 4.8 % (4.4-11.3); NEUTROPHILS # (AUTO) 7.3 (2.1-6.9); NEUTROPHILS % 87.2 % (38.7-80.0); PLATELET COUNT 120 x10e3/uL (140-360); RED BLOOD COUNT 3.68 x10e6/uL (4.3-5.7); RED CELL DISTRIBUTION WIDTH 14.6 % (11.7-14.4); WHITE BLOOD COUNT 8.41 x10e3/uL (4.8-10.8)
[2024-04-06 21:18] LABS: ALBUMIN/GLOBULIN RATIO 0.6 (0.8-2.0); ANION GAP 21.7 mmol/L (8-16); BILIRUBIN,TOTAL 1.3 mg/dL (0.2-1.2); CALCIUM 9.5 mg/dL (8.4-10.2); CREATININE, SERUM 1.38 mg/dL (0.72-1.25); POTASSIUM 3.7 mmol/L (3.5-5.1); TOTAL PROTEIN 7.8 g/dL (6.5-8.1)
[2024-04-06] MEDS: ACETAMINOPHEN 325 MG TAB PO STA (21:21)
[2024-04-06] MEDS: SODIUM CHLORIDE 0.9% 1000ML 1,000 ML IV STA (21:21)
[2024-04-06 21:26] LABS: TROPONIN I 0.096 ng/mL (0-0.300)
[2024-04-06 21:33] LABS: CORONAVIRUS COVID-19 AG NEGATIVE (NEGATIVE); INFLUENZA A AG NEGATIVE (NEGATIVE); INFLUENZA B AG NEGATIVE (NEGATIVE)
[2024-04-06] MEDS: ACETAMINOPHEN 1000 MG/100 ML IV STA (22:16)
[2024-04-06 22:30] VITALS: PULSE 65; RESP 16
[2024-04-07] VITALS (10 sets, daily range): BP systolic 144–164; BP diastolic 70–83; PULSE 52–80; RESP 16–20; TEMP 97.3–99.1; O2SAT 95–100
[2024-04-07] MEDS ORDERED: LISINOPRIL20 MG PO (04:15)
[2024-04-07] MEDS ORDERED: CLOPIDOGREL75 MG PO (04:15)
[2024-04-07] MEDS ORDERED: CARVEDILOL3.125 MG PO (04:15)
[2024-04-07] MEDS ORDERED: ASPIRIN81 MG PO (04:15)
[2024-04-07] MEDS ORDERED: ATORVASTATIN CA20 MG PO (04:15)
[2024-04-07] MEDS ORDERED: AMLODIPINE BESYL5 MG PO (04:15)
[2024-04-07] MEDS ORDERED: SERTRALINE HCL50 MG PO (04:15)
[2024-04-07] MEDS ORDERED: QUETIAPINE FUMA25 MG PO (04:15)
[2024-04-07] MEDS ORDERED: METFORMIN HCL500 M1 PO (04:15)
[2024-04-07 06:19] LABS: BASOPHILS % 0.4 % (0.0-1.0); EOSINOPHILS # (AUTO) 0.1 (0.0-0.4); EOSINOPHILS % 1.3 % (0.0-6.0); HEMATOCRIT 34.3 % (38.2-49.6); HEMOGLOBIN 10.8 g/dL (14.0-18.0); LYMPHOCYTES # (AUTO) 0.9 (1.0-3.2); LYMPHOCYTES % 18.4 % (18.0-39.1); MEAN CORPUSCULAR HEMOGLOBIN 32.9 pg (28-32); MEAN CORPUSCULAR HGB CONC 31.5 g/dL (31-35); MEAN CORPUSCULAR VOLUME 104.6 fL (81-99); MONOCYTES # (AUTO) 0.4 (0.2-0.8); MONOCYTES % 7.5 % (4.4-11.3); NEUTROPHILS # (AUTO) 3.4 (2.1-6.9); NEUTROPHILS % 72.2 % (38.7-80.0); RED BLOOD COUNT 3.28 x10e6/uL (4.3-5.7); RED CELL DISTRIBUTION WIDTH 14.6 % (11.7-14.4); WHITE BLOOD COUNT 4.77 x10e3/uL (4.8-10.8)
[2024-04-07 06:24] LABS: PLATELET COUNT 94 x10e3/uL (140-360)
[2024-04-07 06:56] LABS: ALBUMIN 2.7 g/dL (3.5-5.0); ALBUMIN/GLOBULIN RATIO 0.7 (0.8-2.0); ANION GAP 13.3 mmol/L (8-16); CALCIUM 8.9 mg/dL (8.4-10.2); CREATININE, SERUM 1.2 mg/dL (0.72-1.25); TOTAL PROTEIN 6.6 g/dL (6.5-8.1)
[2024-04-07 07:01] LABS: POTASSIUM 3.3 mmol/L (3.5-5.1)
[2024-04-07 07:27] LABS: TROPONIN I 0.025 ng/mL (0-0.300)
[2024-04-07] MEDS ORDERED: ONDANSETRON HCL INJ 2MG/ML 2ML 2 MG/ML VIAL IV PRN (09:30)
[2024-04-07] MEDS: CARVEDILOL 3.125 MG TAB PO SCH (10:30)
[2024-04-07] MEDS: AMLODIPINE BESYLATE 5 MG TAB PO SCH (10:30)
[2024-04-07 15:19] LABS: TROPONIN I 0.041 ng/mL (0-0.300)
[2024-04-07] MEDS: HYDRALAZINE HCL 20 MG/ML VIAL IV PRN (15:27)
[2024-04-07] MEDS: QUETIAPINE FUMARATE 25 MG TAB PO SCH (20:12)
[2024-04-08] VITALS (7 sets, daily range): BP systolic 127–175; BP diastolic 73–83; PULSE 54–60; RESP 15–20; TEMP 97.3–98.9; O2SAT 98–100
[2024-04-08] MEDS: TAMSULOSIN HCL 0.4 MG CAP PO SCH (17:28)
[2024-04-08] MEDS: TAMSULOSIN HCL 0.4 MG CAP PO ONE (18:24)
[2024-04-09] VITALS (10 sets, daily range): BP systolic 150–177; BP diastolic 74–87; PULSE 54–63; RESP 17–21; TEMP 97.9–99; O2SAT 98–100
[2024-04-09 00:29] LABS: BILIRUBIN,URINE NEGATIVE (NEGATIVE); CLARITY,URINE CLEAR (CLEAR); COLOR,URINE YELLOW (YELLOW); GLUCOSE, URINE NEGATIVE (NEGATIVE); KETONES,URINE NEGATIVE (NEGATIVE); LEUKOCYTE ESTERASE ,URINE 1+ (NEGATIVE); NITRITE,URINE NEGATIVE (NEGATIVE); PH,URINE 6 (5 - 7); PROTEIN,URINE DIPSTICK 2+ (NEGATIVE); URINE UROBILINOGEN 1 mg/dL (0.2 - 1)
[2024-04-09 00:42] LABS: BACTERIA,URINE MANY /HPF; EPITHELIAL CELLS,URINE MODERATE /LPF; WBC,URINE (MAN) >50 /HPF (0-5)
[2024-04-09 00:43] LABS: CALCIUM OXALATE CRYSTALS,UR MODERATE (FEW); MUCUS,URINE FEW (RARE); RENAL EPITHELIAL CELLS,URINE FEW; TRANSITIONAL EPI CELLS,URINE MANY
[2024-04-09] MEDS ORDERED: ZIPRASIDONE 20 MG VIAL IM PRN (10:45)
[2024-04-09] MEDS: TAMSULOSIN HCL 0.4 MG CAP PO SCH (13:13)
[2024-04-09] MEDS: ACETAMINOPHEN 325 MG TAB PO PRN (15:54)
[2024-04-10 05:00] VITALS: BP 146/74; PULSE 64; RESP 19; TEMP 99.1; O2SAT 96
[2024-04-10 05:49] LABS: BASOPHILS % 0.4 % (0.0-1.0); EOSINOPHILS # (AUTO) 0.1 (0.0-0.4); EOSINOPHILS % 2.5 % (0.0-6.0); HEMATOCRIT 33.7 % (38.2-49.6); HEMOGLOBIN 11.4 g/dL (14.0-18.0); LYMPHOCYTES # (AUTO) 0.5 (1.0-3.2); LYMPHOCYTES % 11.2 % (18.0-39.1); MEAN CORPUSCULAR HEMOGLOBIN 33.1 pg (28-32); MEAN CORPUSCULAR HGB CONC 33.8 g/dL (31-35); MONOCYTES # (AUTO) 0.3 (0.2-0.8); MONOCYTES % 6.4 % (4.4-11.3); NEUTROPHILS # (AUTO) 3.8 (2.1-6.9); NEUTROPHILS % 79.1 % (38.7-80.0); PLATELET COUNT 116 x10e3/uL (140-360); RED BLOOD COUNT 3.44 x10e6/uL (4.3-5.7); RED CELL DISTRIBUTION WIDTH 14.7 % (11.7-14.4); WHITE BLOOD COUNT 4.84 x10e3/uL (4.8-10.8)
[2024-04-10 06:21] LABS: ANION GAP 13.2 mmol/L (8-16); CREATININE, SERUM 1.14 mg/dL (0.72-1.25)
[2024-04-10 06:25] LABS: POTASSIUM 3.2 mmol/L (3.5-5.1)
[2024-04-10] MEDS: AMLODIPINE BESYLATE 10 MG TAB PO SCH (09:29)
[2024-04-10] MEDS: POTASSIUM CHLORIDE 20 MEQ TAB CR PO ONE ×2 (10:22→11:03)
[2024-04-10 11:49] VITALS: BP 144/71; PULSE 62; RESP 19; TEMP 99.7; O2SAT 97
[2024-04-10 12:19] VITALS: BP 144/71; PULSE 62; RESP 19; TEMP 99.3; O2SAT 97
[2024-04-10 17:12] VITALS: BP 159/80; PULSE 63; RESP 18; TEMP 100.6; O2SAT 97
[2024-04-10 20:00] VITALS: BP 149/72; PULSE 60; RESP 18; TEMP 98.7; O2SAT 98
[2024-04-11] VITALS (8 sets, daily range): BP systolic 147–167; BP diastolic 73–92; PULSE 51–58; RESP 16–18; TEMP 97.4–98.9; O2SAT 97–100
[2024-04-11] MEDS: LIDOCAINE 4% PATCH TP SCH (09:30)
[2024-04-12] VITALS (7 sets, daily range): BP systolic 100–177; BP diastolic 62–92; PULSE 51–68; RESP 16–18; TEMP 97.5–98.5; O2SAT 98–100
[2024-04-13 01:16] VITALS: BP 161/79; PULSE 55; RESP 16; TEMP 97.3; O2SAT 100
[2024-04-13 04:00] VITALS: BP 161/78; PULSE 59; RESP 16; TEMP 98.2; O2SAT 100
[2024-04-13 08:05] VITALS: BP 158/79; PULSE 60; RESP 17; TEMP 98.7; O2SAT 100
[2024-04-13 11:08] VITALS: BP 150/92; PULSE 64; RESP 16; TEMP 98.2; O2SAT 99
[2024-04-13 13:48] VITALS: BP 150/92; PULSE 64; RESP 16; TEMP 98.2; O2SAT 99
[2024-04-13 16:14] VITALS: BP 167/84; PULSE 61; RESP 19; TEMP 97.4; O2SAT 99
== END 2024-04-13 16:40 | disposition hospice, home (50) | DRG 177 ==
LOC: ER 20:17 → INTOOBSV 23:20 → ERHOLD 23:20 → MED/SURG2 23:50 → OBSVTOIN 04-07 09:30
PROVIDERS: ADMIT Internal Medicine; ATTEND Internal Medicine
DX: J69.0 Pneumonitis due to inhalation of food and vomit (principal); E43 Unspecified severe protein-calorie malnutrition; K76.6 Portal hypertension; N39.0 Urinary tract infection, site not specified; F02.811 Dementia in other diseases classified elsewhere, unspecified severity, with agitation; R62.7 Adult failure to thrive; E86.0 Dehydration; D69.6 Thrombocytopenia, unspecified; Z71.3 Dietary counseling and surveillance; Z68.23 Body mass index [BMI] 23.0-23.9, adult; D64.9 Anemia, unspecified; M25.512 Pain in left shoulder; R13.10 Dysphagia, unspecified; E87.8 Other disorders of electrolyte and fluid balance, not elsewhere classified; N40.1 Benign prostatic hyperplasia with lower urinary tract symptoms; R33.8 Other retention of urine; R63.4 Abnormal weight loss; K80.20 Calculus of gallbladder without cholecystitis without obstruction; I25.10 Atherosclerotic heart disease of native coronary artery without angina pectoris; Z95.1 Presence of aortocoronary bypass graft; K74.60 Unspecified cirrhosis of liver; G30.9 Alzheimer's disease, unspecified; Z91.81 History of falling; Z96.21 Cochlear implant status; Z11.52 Encounter for screening for COVID-19; Z51.5 Encounter for palliative care; Z79.899 Other long term (current) drug therapy; Z79.02 Long term (current) use of antithrombotics/antiplatelets; Z79.82 Long term (current) use of aspirin
CPT/HCPCS: 36415; 70450; 71045; 71250; 74176; 74230; 76700; 80048; 80053; 81001; 82140; 82550; 82948; 83518; 83605; 83690; 83880; 84484; 85025; 87040; 87086; 93005; 94799; 99252; 99284; G0378; J0360; J2470; J2543; J7030